=== PATIENT | female | born 1955 | race Caucasian/White ===

== ENCOUNTER 2022-04-20 03:27 | Inpatient (IN) | payer MEDICARE, SELFPAY ==
[2022-04-20] VITALS (24 sets, daily range): BP systolic 122–170; BP diastolic 54–77; PULSE 74–110; RESP 12–20; TEMP 36.4–37.7; O2SAT 96–100; BMI 23.0
--- NOTE | 2022-04-20 | ECG_ITS ---
Test Reason : CHEST PAIN Blood Pressure : / mmHG Vent. Rate : 076 BPM Atrial Rate : 076 BPM P-R Int : 136 ms QRS Dur : 082 ms QT Int : 422 ms P-R-T Axes : 066 023 024 degrees QTc Int : 474 ms Normal sinus rhythm Normal ECG No previous ECGs available Referred By: Generic ED Physician Electronically Signed By:CARLOS YOUNG MD
--- NOTE | ~2022-04-20 | CT_ITS ---
EXAMINATION: CT ABDOMEN AND PELVIS WITH CONTRAST CLINICAL INFORMATION: Question of pancreatitis COMPARISON: None TECHNIQUE: Multidetector volumetric images were obtained from the superior aspect of the liver through the pubic symphysis following administration 85 mL of Omnipaque 350 intravenous contrast. Sagittal and coronal reformatted images were obtained on the technologist's workstation. Oral contrast: No This CT examination was performed using dose optimization techniques as appropriate, variously including the following: *Automated exposure control *Adjustment of mA and/or kV according to patient size (this includes techniques or standardized protocols for targeted exams where dose is matched to indication/reason for exam; i.e. extremities or head) *Use of iterative reconstruction technique DLP: 534 mGy-cm FINDINGS: LUNG BASES: The visualized lung bases are unremarkable. LIVER, GALLBLADDER, AND BILIARY TREE: The liver is normal in size, shape, and attenuation. No focal hepatic lesion or biliary ductal dilatation is present. Gallbladder physiologically contracted. PANCREAS: Unremarkable. SPLEEN: Unremarkable. ADRENAL GLANDS: Unremarkable. KIDNEYS AND URETERS: The kidneys are normal in size, shape, and attenuation. No hydronephrosis, hydroureter, or calculi seen. No perinephric stranding. BLADDER: Unremarkable. GASTROINTESTINAL TRACT: The terminal ileum and cecum have herniated into the lesser sac via the foramen of [place]. The cecum is moderately distended measuring up to 10 cm in diameter. No wall thickening or pericolic fat stranding to suggest vascular compromise. The distal small bowel is fluid filled but nonpathologically distended leading up to the cecum. The ascending colon exits the lesser sac through the foramen of Javier, and the remainder of the colon is relatively decompressed. ABDOMINAL WALL: No significant hernia is appreciated. LYMPH NODES: Normal. VASCULAR: Unremarkable. PELVIC VISCERA: Unremarkable. OSSEOUS STRUCTURES: Unremarkable. CT/CT abdomen pelvis w IV con IMPRESSION: * Internal herniation of the terminal ileum and cecum into the lesser sac via the foramen of [place], ie Blandin's hernia. The cecum is moderately distended measuring up to 10 cm in diameter, however there is no CT imaging evidence of vascular compromise. There is no associated partial obstruction where ascending colon exits the lesser sac, and the remainder of the colon is relatively decompressed. * No evidence of pancreatitis.
[2022-04-20 03:51] LABS: Hematocrit 36.3 % (37.0-47.0); Mean Corpuscular HGB Conc 33.1 g/dl (31.0-35.0); Mean Corpuscular Hemoglobin 30.1 pg (27.0-33.0); Mean Platelet Volume 9.8 fL (9.4-12.3); Platelet Count 247 X10*3/uL (160-400); Red Blood Count 3.99 X10*6/uL (4.20-5.50); Red Cell Distribution Width 12.1 % (11.0-16.0); White Blood Count 12.6 X10*3/uL (4.8-10.8)
--- NOTE | 2022-04-20 03:53 | ED_ITS ---
HPI - Abdominal Pain General Chief Complaint: Abdominal Pain Stated Complaint: Abdominal Pain Time Seen by Provider: 04/20/22 03:52 Source: patient Mode of arrival: ambulatory Limitations: no limitations History of Present Illness HPI narrative: Patient with history of hypertension otherwise healthy drinks occasionally had a drink earlier since 20:00 noticed pain in mid abdomen radiating to the back as with nausea and vomiting multiple times more than 10 also had 3 loose bowels no fever no chills no recent travel or antibiotic use no other family member sick no upper respiratory symptoms no abdominal distension patient never had similar complaints in the past no history of gallstones Related Data Allergies Allergy/AdvReac Type Severity Reaction Status Date / Time No Known Allergies Allergy Verified 04/20/22 03:37 Review of Systems Review of Systems Yes all other systems are reviewed and are negative COUNT INCLUDES [facility] Social History Social History Alcohol intake: current Alcohol intake frequency: a few times a week Alcohol type: hard liquor Smoked in Last 30 Days: No Substance Use Type: Other Substance Use Type Other:: CBD oil Advance Directives: No Advance Directives Information Provided: Yes Physical Exam ED Vital Signs: Vital Signs - 24 hr 04/20/22 03:34 04/20/22 04:31 04/20/22 05:15 Temperature 97.8 F 97.6 F Pulse Rate 74 91 Respiratory Rate 20 20 16 Blood Pressure 168/68 H 164/58 H Pulse Oximetry 98 96 Oxygen Delivery Method Room Air Room Air BMI result Body Mass Index 23.0 Appearance: Alert. Oriented X3. No acute distress. Eyes: No pallor/icterus ENT: Pharynx normal. Oral Mucosa moist Neck: Normal inspection. Neck supple. CVS: Normal heart rate and rhythm. Pulses normal. Respiratory: No respiratory distress. Equal air entry bilateral, no wheezing/rales/rhonchi Abdomen: Soft, deep tenderness in mid abdomen no rebound tenderness , +guarding, Bowel sounds are present, no mass palpable, no CVA tenderness Skin: Skin warm and dry. Normal skin color. Normal skin turgor. Extremities: No lower extremity edema. No calf tenderness Neuro: Oriented X 3. No motor deficit. No sensory deficit.No cerebellar signs , cranial nerves II-XII intact Medical Decision Making Medical Decision Making MDM Narrative: Patient with acute mid abdominal pain with nausea vomiting and diarrhea workup showed WBC count 12.[address] scan of the abdomen showed *? Internal herniation of the terminal ileum and cecum into the lesser sac via the foramen of [place], ie Blandin's hernia. The cecum is moderately distended measuring up to 10 cm in diameter, however there is no CT imaging evidence of vascular compromise. There is no associated partial obstruction where ascending colon exits the lesser sac, and the remainder of the colon is relatively decompressed. *? No evidence of pancreatitis. Case discussed with Dr. Salmeron surgeon will evaluate the patient advise IV fluids and NG tube for now Lab Data MDM Lab Attestation statement: I reviewed the patient's lab results. 04/20/22 03:43 04/20/22 03:43 Labs: Lab Results 04/20/22 04/20/22 04/20/22 Range/Units 03:43 03:43 03:51 WBC 12.6 H (4.8-10.8) X10*3/uL RBC 3.99 L (4.20-5.50) X10*6/uL Hgb 12.0 (12.0-16.0) g/dl Hct 36.3 L (37.0-47.0) % MCV 91.0 (80.0-98.0) fL MCH 30.1 (27.0-33.0) pg MCHC 33.1 (31.0-35.0) g/dl RDW 12.1 (11.0-16.0) % Plt Count 247 (160-400) X10*3/uL MPV 9.8 (9.4-12.3) fL Absolute Nucleated RBC 0.000 (0.0-0.012) X10*3/uL Nucleated RBC % (auto) 0.0 (0.0-0.2) /100WBC Sodium 139 (135-145) mmol/L Potassium 3.7 (3.3-5.1) mmol/L Chloride 103 (96-108) mmol/L Carbon Dioxide 21 L (22-29) mmol/L Anion Gap 19 (12-20) BUN 34 H (9-16) mg/dL Creatinine 1.40 (0.5-1.4) mg/dL Estim Creat Clear Calc 33.1 Estimated GFR 38 Random Glucose 221 H (60-115) mg/dL Calcium 10.3 H (8.4-10.2) mg/dL Total Bilirubin 0.4 (0.0-1.0) mg/dL Direct Bilirubin < 0.2 (0.0-0.5) mg/dL AST 19 (5-31) U/L ALT 17 (0-31) U/L Alkaline Phosphatase 64 (39-117) U/L Troponin I High Sens < 3.5 (<3.5-17.0) ng/L Total Protein 7.5 (6.5-8.0) g/dL Albumin 4.7 (3.5-5.0) g/dL Lipase 197 H (8-78) U/L Urine Color Urine Appearance Urine pH (5.0-9.0) Ur Specific [place] (1.005-1.025) Urine Protein (Neg-Trace) mg/dL Urine Glucose (UA) (Negative) mg/dL Urine Ketones (Negative) mg/dL Urine Blood (Negative) Urine Nitrite (Negative) Ur Leukocyte Esterase (Negative) Urine RBC (0-2) /HPF Urine WBC (0-5) /HPF Ur Squamous Epith Cells (0-2) /HPF Urine Bacteria (None Seen) Hyaline Casts (0-2) /LPF 04/20/22 Range/Units 04:32 WBC (4.8-10.8) X10*3/uL RBC (4.20-5.50) X10*6/uL Hgb (12.0-16.0) g/dl Hct (37.0-47.0) % MCV (80.0-98.0) fL MCH (27.0-33.0) pg MCHC (31.0-35.0) g/dl RDW (11.0-16.0) % Plt Count (160-400) X10*3/uL MPV (9.4-12.3) fL Absolute Nucleated RBC (0.0-0.012) X10*3/uL Nucleated RBC % (auto) (0.0-0.2) /100WBC Sodium (135-145) mmol/L Potassium (3.3-5.1) mmol/L Chloride (96-108) mmol/L Carbon Dioxide (22-29) mmol/L Anion Gap (12-20) BUN (9-16) mg/dL Creatinine (0.5-1.4) mg/dL Estim Creat Clear Calc Estimated GFR Random Glucose (60-115) mg/dL Calcium (8.4-10.2) mg/dL Total Bilirubin (0.0-1.0) mg/dL Direct Bilirubin (0.0-0.5) mg/dL AST (5-31) U/L ALT (0-31) U/L Alkaline Phosphatase (39-117) U/L Troponin I High Sens (<3.5-17.0) ng/L Total Protein (6.5-8.0) g/dL Albumin (3.5-5.0) g/dL Lipase (8-78) U/L Urine Color Dark Yellow Urine Appearance Clear Urine pH 6.0 (5.0-9.0) Ur Specific [place] 1.020 (1.005-1.025) Urine Protein 100 (2+) H (Neg-Trace) mg/dL Urine Glucose (UA) 250 H (Negative) mg/dL Urine Ketones Trace (Negative) mg/dL Urine Blood Negative (Negative) Urine Nitrite Negative (Negative) Ur Leukocyte Esterase Negative (Negative) Urine RBC 3-5 H (0-2) /HPF Urine WBC 0-5 (0-5) /HPF Ur Squamous Epith Cells 0-2 (0-2) /HPF Urine Bacteria None Seen (None Seen) Hyaline Casts 0-2 (0-2) /LPF Independent Interpretation I performed an independent interpretation of an: EKG Interpretation: Normal sinus rhythm heart rate 76 beats per minute normal interval normal axis impression normal EKG Radiology Impression Discussion of test interpretation with radiology: I have reviewed the radiologist's reading. Radiologist Impression: CT/CT abdomen pelvis w IV con IMPRESSION: *? Internal herniation of the terminal ileum and cecum into the lesser sac via the foramen of [place], ie Blandin's hernia. The cecum is moderately distended measuring up to 10 cm in diameter, however there is no CT imaging evidence of vascular compromise. There is no associated partial obstruction where ascending colon exits the lesser sac, and the remainder of the colon is relatively decompressed. *? No evidence of pancreatitis. Medications Administered Discontinued Medications Generic Name Dose Route Start Last Admin Trade Name Freq PRN Reason Stop Dose Admin Sodium Chloride 1,000 mls @ 999 mls/hr 04/20/22 04:18 04/20/22 04:36 Ns IV 04/20/22 05:18 999 mls/hr .Q1H1M ONE Administration Iohexol 85 ml 04/20/22 05:01 04/20/22 05:02 Iohexol 350 Mg/Ml 100 Ml Infus..Btl IV 04/20/22 05:02 85 ml ONCE ONE Administration Morphine Sulfate 4 mg 04/20/22 04:18 04/20/22 04:31 Morphine Sulfate 4 Mg/Ml Cartridge IVPUSH 04/20/22 04:19 4 mg ONCE ONE Administration Protocol Ondansetron HCl 4 mg 04/20/22 04:18 04/20/22 04:31 Ondansetron Hcl 4 Mg/2 Ml Vial IVPUSH 04/20/22 04:19 4 mg ONCE ONE Administration Discharge Plan Discharge Clinical Impression: Internal hernia Patient Disposition: Admitted As Inpatient
--- NOTE | 2022-04-20 03:58 | PC.NURSE ---
Addendum entered by Stella Garcia 04/20/22 06:13: PT lying on stretcher quietly, reports effectiveness to pain meds given. States pain decrease from 8/10 to 4/10. No apparent distress. Addendum entered by Stella Garcia 04/20/22 04:37: Medications given as ordered. Addendum entered by Stella Garcia 04/20/22 04:04: PT reports episodes of V/D. Original Note: PT A&Ox4, reports 10/10 all over ABD pain that started around 8pm last night 45 minutes after eating. Reports chest pain that radiates to upper back. PT placed on the monitor, EKG done, HR 76 NSR. IV established and blood work drawn and sent to lab.
[2022-04-20 04:07] LABS: Alanine Aminotransferase 17 U/L (0-31); Albumin Level 4.7 g/dL (3.5-5.0); Alkaline Phosphatase 64 U/L (39-117); Anion Gap 19 (12-20); Aspartate Amino Transferase 19 U/L (5-31); Bilirubin Direct < 0.2 mg/dL (0.0-0.5); Bilirubin Total 0.4 mg/dL (0.0-1.0); Blood Urea Nitrogen 34 mg/dL (9-16); Calcium 10.3 mg/dL (8.4-10.2); Carbon Dioxide 21 mmol/L (22-29); Chloride 103 mmol/L (96-108); Creatinine Clr Calc Pharmacy 33.1; Estimated Glomerular Filt Rate 38; Glucose Random 221 mg/dL (60-115); Lipase 197 U/L (8-78); Potassium 3.7 mmol/L (3.3-5.1); Sodium 139 mmol/L (135-145); Total Protein 7.5 g/dL (6.5-8.0)
[2022-04-20 04:18] LABS: Troponin-I High Sensitivity < 3.5 ng/L (<3.5-17.0)
[2022-04-20] MEDS: Morphine Sulfate 4 MG/ML CARTRIDGE IVPUSH (04:31)
[2022-04-20] MEDS: ondansetron HCL 4 MG/2 ML VIAL IVPUSH (04:31)
[2022-04-20] MEDS: 0.9 % Sodium Chloride 1,000 ML 999 ML IV ×2 (04:36→06:59)
[2022-04-20 04:39] LABS: Appearance Urine Clear; Color Urine Dark Yellow; Glucose Urine UA 250 mg/dL (Negative); Leukocyte Esterase Urine Negative (Negative); Nitrite Urine Negative (Negative); UMIC TRIGGER UACC YES; Urine Blood Negative (Negative); Urine Ketones Trace mg/dL (Negative); Urine Protein 100 (2+) mg/dL (Neg-Trace)
[2022-04-20 04:43] LABS: Bacteria Urine None Seen (None Seen); Hyaline Casts Urine 0-2 /LPF (0-2); Squamous Epithelial Cell Urine 0-2 /HPF (0-2); WBC Urine 0-5 /HPF (0-5)
[2022-04-20] MEDS: iohexoL 350 MG/ML 100 ML INFUS..BTL 85 ML IV (05:02)
--- NOTE | 2022-04-20 07:17 | PC.NURSE ---
surgeon at bedside-Call made to pharmacy for lidocaine
--- NOTE | 2022-04-20 07:40 | PM.HPGS ---
History of Present Illness History of Present Illness Date of Service: 04/20/22 Chief complaint: Abdominal Pain Narrative: Saud Fortune is a 66 year old female who has a history of controlled hypertension and is rather athletic. She is accompanied by her , [place], who is at the bedside. She reports she does about 200 crunches a day and exercises with a administrative personal assistant daily. She had been doing well until last night when she started to developed crampy abdominal pain that was ill-defined and when it continued to progress and radiate to her back and shoulders, she came to the emergency department where she was noted to have a mild leukocytosis and a CT scan consistent with an internal hernia through the foramen of [place]avier with her cecum and the retrogastric location. Patient reports a prior history of of ectopic and C-sections but has no upper abdominal surgery. She notes that she had a colonoscopy completed up previously but that her 1st colonoscopy was very uncomfortable. Review of Systems Review of Systems: Yes all other systems are reviewed and are negative Constitutional: Constitutional: Reports as per [facility] Social History Social History Alcohol intake: current Alcohol intake frequency: a few times a week Alcohol type: hard liquor Smoked in Last 30 Days: No Substance Use Type: Other Substance Use Type Other:: CBD oil Advance Directives: No Advance Directives Information Provided: Yes Meds Allergies Allergy/AdvReac Type Severity Reaction Status Date / Time No Known Allergies Allergy Verified 04/20/22 03:37 Active Medications: Current Medications Sodium Chloride (Ns) 1,000 mls @ 999 mls/hr IV .Q1H1M ONE Stop: 04/20/22 07:43 Last Admin: 04/20/22 06:59 Dose: 999 mls/hr Physical Exam Vital Signs: Vital Signs: Last Vital Signs Temp 97.6 F 04/20/22 05:15 Pulse 91 04/20/22 05:15 Resp 16 04/20/22 05:15 BP 164/58 H 04/20/22 05:15 Pulse Ox 96 04/20/22 05:15 O2 Del Method 04/20/22 05:15 BMI result Body Mass Index 23.0 The patient is non-toxic, but uncomfortable & in surprisingly good spirits NC/AT, PERRLA, EOMI Mood, affect & judgment all appear appropriate Sclera anicteric conjunctiva pink and moist Oropharynx is clear with no aphthous ulcers, Mallampati class 2, mucous membranes moist Neck is supple with no masses, adenopathy or bruits Heart is regular, normal S1-S2 no rubs or murmurs Lungs are clear and equal anteriorly with no audible wheezing, rubs or dullness to percussion Abdomen has no demonstrable hernias. No HSM, rebound, rigidity, guarding, masses or bruits are present. Rectal exam is deferred Skin has good turgor and is free of rashes Extremities free of cyanosis clubbing edema Results Results Labs: Short CBC 04/20/22 Range/Units 03:43 WBC 12.6 H (4.8-10.8) X10*3/uL Hgb 12.0 (12.0-16.0) g/dl Hct 36.3 L (37.0-47.0) % Plt Count 247 (160-400) X10*3/uL BMP 04/20/22 03:43 Sodium 139 Potassium 3.7 Chloride 103 Carbon Dioxide 21 L BUN 34 H Creatinine 1.40 Calcium 10.3 H Liver Function 04/20/22 Range/Units 03:43 Total Bilirubin 0.4 (0.0-1.0) mg/dL Direct Bilirubin < 0.2 (0.0-0.5) mg/dL AST 19 (5-31) U/L ALT 17 (0-31) U/L Alkaline Phosphatase 64 (39-117) U/L Albumin 4.7 (3.5-5.0) g/dL Urine 04/20/22 Range/Units 04:32 Urine Color Dark Yellow Urine Appearance Clear Urine pH 6.0 (5.0-9.0) Ur Specific [place] 1.020 (1.005-1.025) Urine Protein 100 (2+) H (Neg-Trace) mg/dL Urine Glucose (UA) 250 H (Negative) mg/dL Abdomen CT scan report/results: report reviewed CT scan - pelvis: report reviewed and image reviewed Assessment and Plan (1) Internal hernia: Status: Acute (2) HTN (hypertension): Status: Acute Plan I explained to the patient and her this is an exceedingly rare internal hernia and that I would recommend a diagnostic laparoscopy, possible laparotomy and a possible bowel resection that would be determined intraoperatively. The only other options would be to transfer the patient to a larger institution. I reviewed the inherent risks of this plan which include, but are not limited to: Bleeding, infection, incisional hernia, the possible need for open surgery, the possible need for a bowel resection and possible anastomotic complications that could require another operation or even an ostomy. The patient and her seemed understand the options, risks and benefits and wanted to proceed. Patient will proceed to the operating room immediately. Hold on nasogastric tube for now, will place at intraoperatively. Keep the patient NPO, she will receive Ancef, 2 g IV and sequential compression stockings will be in place. Baumann catheter. Will proceed as soon as the operating team is ready.. I met with the patient's and her. Her and stefano provided his cell phone number [phone] Time Spent With Patient Time: Total time managing care of this patient today ____ minutes. Quality Stroke Does the patient have a stroke diagnosis?: No VTE Prior VTE?: No VTE Risk Level:: Surgical - moderate VTE Device Contraindication: N/A - Device Ordered VTE Drug Contraindication: Treatment Not Indicated Procedures Date of Service Date of Service: 04/20/22
--- NOTE | 2022-04-20 07:54 | HO.ANESPROP2 ---
HPI - Anesthesia Eval Consult details Narrative: 66 yo female patient with Foramen of [place] hernia. For diagnostic laparoscopy, possible laparotomy, possible bowel resection PMFSH Active Problems Active Problems: All Active Problems (Updated 04/20/22 @ 07:44 by Arturo Salmeron MD) HTN (hypertension) (Acute) Internal hernia (Acute) Social History Social History Alcohol intake: current Alcohol intake frequency: a few times a week Alcohol type: hard liquor Smoked in Last 30 Days: No Substance Use Type: Other Substance Use Type Other:: CBD oil Advance Directives: No Advance Directives Information Provided: Yes Meds Allergies Allergy/AdvReac Type Severity Reaction Status Date / Time No Known Allergies Allergy Verified 04/20/22 03:37 Active Medications: Current Medications Cefazolin Sodium/Dextrose (Ancef) 2 gm in 50 mls @ 100 mls/hr IV ONCE ONE Stop: 04/20/22 08:07 Lactated Ringer's (Lr) 1,000 mls @ 100 mls/hr IVCONT .Q10H EMMANUEL Home Medications Medication Instructions Recorded Confirmed Last Taken Type cholecalciferol (vitamin D3) 25 25 mcg PO DAILY 04/20/22 04/20/22 04/19/22 History mcg (1,000 unit) tablet (Vitamin D3) estradiol 1 mg tablet 1 tab PO DAILY 04/20/22 04/20/22 04/19/22 History fish, borage, flaxseed oils-omega 1 cap PO BID 04/20/22 04/20/22 04/19/22 History 3,6,9 cb #1 400 mg-400 mg-400 mg cap ([place]ple [place] 3-6-9) glucosamine 750 nx-[id number]-etx 1 tab PO BID 04/20/22 04/20/22 04/19/22 History no1 644 mg-C 30 mg-viky 1 mg tablet (Osteo Bi-Flex Triple Strength) magnesium oxide 250 mg PO BID 04/20/22 04/20/22 04/19/22 History methenamine-sodium salicylate 162 2 tab PO DAILY 04/20/22 04/20/22 Unknown History mg-162.5 mg tablet (AZO Urinary Tract Defense) [id number] 1 tab PO DAILY 04/20/22 04/20/22 Unknown History tablet (Multivitamin 50 Plus tablet) olmesartan 20 1 tab PO DAILY 04/20/22 04/20/22 04/19/22 History mg-hydrochlorothiazide 12.5 mg tablet potassium gluconate 550 mg (90 mg) 550 mg PO DAILY 04/20/22 04/20/22 04/19/22 History tablet turmeric root extract 500 mg 1,000 mg PO DAILY 04/20/22 04/20/22 04/19/22 History capsule vitamin B complex 1 cap PO DAILY 04/20/22 04/20/22 04/19/22 History Exam Exam Date and Time: April 20, 2022 0754 Height,Weight and Vital Signs: Height 5 ft 3 in Weight 58.967 kg Last Vital Signs Temp 98.7 F 04/20/22 07:50 Pulse 110 H 04/20/22 07:50 Resp 18 04/20/22 07:50 BP 170/77 H 04/20/22 07:50 Pulse Ox 97 04/20/22 07:50 O2 Del Method 04/20/22 07:50 Pertinent Lab Results Pertinent Lab Results: Laboratory Tests 04/20/22 04/20/22 04/20/22 03:43 03:43 03:51 WBC 12.6 H RBC 3.99 L Hgb 12.0 Hct 36.3 L MCV 91.0 MCH 30.1 MCHC 33.1 RDW 12.1 Plt Count 247 MPV 9.8 Absolute Nucleated RBC 0.000 Nucleated RBC % (auto) 0.0 Sodium 139 Potassium 3.7 Chloride 103 Carbon Dioxide 21 L Anion Gap 19 BUN 34 H Creatinine 1.40 Estim Creat Clear Calc 33.1 Estimated GFR 38 Random Glucose 221 H Calcium 10.3 H Total Bilirubin 0.4 Direct Bilirubin < 0.2 AST 19 ALT 17 Alkaline Phosphatase 64 Troponin I High Sens < 3.5 Total Protein 7.5 Albumin 4.7 Lipase 197 H Urine Color Urine Appearance Urine pH Ur Specific [place] Urine Protein Urine Glucose (UA) Urine Ketones Urine Blood Urine Nitrite Ur Leukocyte Esterase Urine RBC Urine WBC Ur Squamous Epith Cells Urine Bacteria Hyaline Casts 04/20/22 04:32 WBC RBC Hgb Hct MCV MCH MCHC RDW Plt Count MPV Absolute Nucleated RBC Nucleated RBC % (auto) Sodium Potassium Chloride Carbon Dioxide Anion Gap BUN Creatinine Estim Creat Clear Calc Estimated GFR Random Glucose Calcium Total Bilirubin Direct Bilirubin AST ALT Alkaline Phosphatase Troponin I High Sens Total Protein Albumin Lipase Urine Color Dark Yellow Urine Appearance Clear Urine pH 6.0 Ur Specific [place] 1.020 Urine Protein 100 (2+) H Urine Glucose (UA) 250 H Urine Ketones Trace Urine Blood Negative Urine Nitrite Negative Ur Leukocyte Esterase Negative Urine RBC 3-5 H Urine WBC 0-5 Ur Squamous Epith Cells 0-2 Urine Bacteria None Seen Hyaline Casts 0-2
[2022-04-20] MEDS: Lactated Ringers 1,000 ML 100 ML IVCONT ×2 (07:56→16:36)
[2022-04-20] MEDS: ceFAZolin Sodium/Dextrose,Iso 2 GM/50 ML PIGGYBACK IV ×2 (07:59→16:37)
[2022-04-20 08:00] LABS: Lactic Acid 2.2 mmol/L (0.5-2.0)
[2022-04-20 08:06] LABS: COVID-19 Test Negative (Negative); IDNOW Serial# BCCEAD1C
--- NOTE | 2022-04-20 08:12 | HE.PHANOTE ---
med rec complete, spoke to pt and
--- NOTE | 2022-04-20 08:19 | PC.NURSE ---
Pt to OR
[2022-04-20 09:45] LABS: Reflex Lactate? Lactic Acid Added
--- NOTE | 2022-04-20 12:18 | P.OP_ITS ---
Operative Note Operative Note Date of Service: 04/20/22 Narrative: Preop diagnosis: [Internal hernia via foramen of Javier] Postop diagnosis: [Same, incarcerated with hemorrhagic cecum] Procedure: [Diagnostic laparoscopy with lysis of adhesions for 37 minute; conversion to laparotomy for ileocecal ectomy secondary to incarcerated hernia with possibly ischemic appearing bowel via foramen of Javier] Surgeon: Arturo Salmeron MD Assist: [Keyon Galo PA-C] Anesthesia: [General endotracheal; local is ropivacaine, 0.5% plain] Estimated blood loss: [100cc] Specimen: [Ileocecectomy] Intraoperative findings: [1. Incarcerated, hemorrhagic cecum via foramen of [place] that initially appeared reducible laparoscopically following needle decompression; 2) adhesions of omentum and ascending colon distorting anatomy that required lysis in order to assess reduce ability of the hernia laparoscopically ] Indications: [The patient is a 66-year-old woman with a history of hypertension who reported roughly 24 hours of progressively worsening pain, had a mild lactic acidosis, leukocytosis and a CT demonstrating that her cecum was in the left upper quadrant behind the stomach and under the liver consistent with a an internal hernia via the foramen of [place]. Immediate operative intervention was recommended with the patient and her in the the planned for a laparoscopic reduction or possible open operation with possible bowel resection was reviewed as well as the inherent risks of bleeding, infection, need for open surgery, anastomotic complications that could require reoperation, the possible need for a blood transfusion and the possibility of prolonged hospitalization in the event of unusual complications given the unusual rarity of this hernia were reviewed. The option of a 2nd opinion or transferred was reviewed but declined by the patient. She seemed understand her options and wanted to proceed.] Procedure: [The patient was identified in the preoperative holding area and again an operating suite 7. She was placed on the table supine, footboard was utilized, she was induced in general endotracheal anesthesia administered with excellent effect. She received Ancef, 2 g IV on-call, Baumann catheter was placed, sequential compression stockings were in place. After an appropriate time-out, her abdomen was widely prepped and draped in the usual manner using chlorprep. Preemptive local was used at all trocar insertion sites. I began at the supraumbilical midline and due to some difficulty placing the Veress needle and high opening pressures, converted to a Solis technique by grasping the fascia in the midline with Estephania clamps, placing sutures on either side of midline an opening the fascia. A gloved finger was inserted and then a Solis trocar inserted a pneumoperitoneum of 15 mmHg was obtained using carbon dioxide in the abdomen explored with a 5 mm 30 degree scope. There was an obvious large portion of colon and the left upper quadrant and in examining for evidence of injury from the Veress needle, none was noted. Additional 5 mm trocars were placed on the patient's left and right abdomen for a total of 3. Patient was then positioned in reverse Trendelenburg and LigaSure and graspers used to identify the anatomy there was a significant amount of adhesions from the omentum in the patient's incompletely rotated: That needed to be lysed to demonstrate the hernia of the ascending colon and cecum through the for a min of 1 slow and this lysis of adhesions required 37 minutes. After attempting to reduce the cecum and successfully, needle decompression was performed and the site closed with a 2-0 Polysorb suture. When this was unsuccessful, decision to open was made. Trocars were removed and protocol to convert to open performed by the staff; the abdomen is entered through a midline upper abdominal incision using electrocautery for hemostasis. Even with manual manipulation, the cecum remained incarcerated and I elected to perform an ileocecectomy in Situ since incarceration would not allow reduction. Window was made through the terminal ileum mesentery and a JIGNESH 60 blue load used to divide the terminal ileum. Next, the ascending colon was divided and ileocecal ectomy was completed by dividing the blood supply using a LigaSure or. Once the incarcerated and likely ischemic cecum was removed, the small bowel and colon was reduced. The ileocecum was sent for permanent section. After inspecting the field for hemostasis, a functional end-to-end ileo ascending colostomy was performed using a JIGNESH 60 blue load and TA 60 blue load stapler. The 1st anastomosis looked tenuous, so this area was resected and another functional anastomosis performed which had better viability. The the mesentery defect was then closed with 3-0 Polysorb and a crotch suture of 3-0 Polysorb placed to keep tension off the staple line. The staple line was patent, hemostatic and viable. Next, the abdomen was irrigated copiously with sterile saline, the anastomosis returned to the abdomen and the area inspected. There was a small rent on the liver from retraction that was rendered hemostatic with electrocautery. After confirming no sponges and instruments were in the abdomen, the abdomen was closed by closing the posterior sheath and peritoneum with a running 2 0 Polysorb and the anterior fascia closed with interrupted 0 Maxon sutures. There was then washed and dried, local infiltrated in the incision and the skin closed with skin mario including the trocar sites. Patient tolerated the procedure well was sent extubated the recovery in stable condition. All sponge instrument counts were correct At the patient's request I contacted her [place] at [phone] and apprised him of the operation and need to convert to an open procedure due to the it incarcerated and irreducible bowel. His questions seemed to be satisfactorily answered. Routine postoperative plan was reviewed.]
--- NOTE | 2022-04-20 14:22 | PM.EVENT ---
Event Note Date of Service: 04/20/22 Event Note: The patient is seen in PACU. Her pulse is still in the upper 90s but she reports that she no longer has the excruciating pain that she came to the emergency room experiencing. She otherwise denies chest pain, shortness of breath. I reviewed the intraoperative findings and need to convert to an open procedure. I explained about the ileocecal ectomy and typical postoperative course. Will reassess later. Check stat lactic acid ordered at 13:30 Time Spent With Patient Time: Total time managing care of this patient today ____ minutes.
--- NOTE | 2022-04-20 16:01 | PM.PNGS ---
Subjective Subjective Date of Service: 04/20/22 Patient reports: feels better Interval history: Patient seen in PACU before going up to room 378. She continues to deny any chest pain or difficulty breathing but notes improvement in her presenting pain. I reviewed the operation and need to convert to an open operation as well as removed a portion of her ileum and colon. Physical Exam Vital Signs: Vital Signs: Last Vital Signs Temp 97.7 F 04/20/22 13:30 Pulse 95 04/20/22 15:45 Resp 18 04/20/22 15:45 BP 149/64 H 04/20/22 15:45 Pulse Ox 98 04/20/22 15:45 O2 Del Method 04/20/22 15:45 O2 Flow Rate 2 04/20/22 14:00 BMI result Body Mass Index 23.0 Pulse remains in the 90s Patient has no respiratory distress Objective Data Active Medications Fentanyl (Fentanyl Citrate/Pf 100 Mcg/2 Ml Vial) 25 mcg IVPUSH Q5M PRN; Protocol PRN Reason: Pain, Moderate (Pain Scale 4-6 Hydromorphone HCl (Hydromorphone Hcl 0.5 Mg/0.5 Ml Syringe) 0.25 mg IVPUSH Q5M PRN; Protocol PRN Reason: Pain, Severe (Pain Scale 7-10) Hydromorphone HCl (Hydromorphone Hcl 0.5 Mg/0.5 Ml Syringe) 0.25 mg IVPUSH Q2H PRN; Protocol PRN Reason: Pain, Moderate (Pain Scale 4-6 Lactated Ringer's (Lr) 1,000 mls @ 150 mls/hr IVCONT .Q6H40M EMMANUEL Last Admin: 04/20/22 07:56 Dose: 100 mls/hr Documented By: DEA Lactated Ringer's (Lr) 1,000 mls @ 100 mls/hr IVCONT .Q10H EMMANUEL Promethazine HCl 12.5 mg/ (Sodium Chloride) 50.5 mls @ 202 mls/hr IV ONCE PRN PRN Reason: Nausea and Vomiting Lactated Ringer's (Lr) 1,000 mls @ 100 mls/hr IVCONT .Q10H EMMANUEL Acetaminophen (Ofirmev) 1,000 mg in 100 mls @ 400 mls/hr IV Q6H [facility] Stop: 04/21/22 07:14 Ondansetron HCl (Ondansetron Hcl 4 Mg/2 Ml Vial) 4 mg IVPUSH ONCE PRN PRN Reason: Nausea and Vomiting Ondansetron HCl (Ondansetron Hcl 4 Mg/2 Ml Vial) 4 mg IVPUSH Q6H PRN PRN Reason: Nausea and Vomiting Pantoprazole Sodium (Pantoprazole Sodium 40 Mg/10 Ml Vial) 40 mg IVPUSH DAILY@0630 [facility] Sodium Chloride (0.9 % Sodium Chloride Flush 3 Ml Syringe) 3 ml IVFLUSH QSHIFT [facility] Labs 04/20/22 03:43 04/20/22 03:43 Labs: Laboratory Results - last 24 hr 04/20/22 04/20/22 04/20/22 03:43 03:43 03:51 MCV 91.0 MCH 30.1 MCHC 33.1 RDW 12.1 Plt Count 247 MPV 9.8 Absolute Nucleated RBC 0.000 Nucleated RBC % (auto) 0.0 Anion Gap 19 Estim Creat Clear Calc 33.1 Estimated GFR 38 Random Glucose 221 H Lactic Acid Calcium 10.3 H Total Bilirubin 0.4 Direct Bilirubin < 0.2 AST 19 ALT 17 Alkaline Phosphatase 64 Troponin I High Sens < 3.5 Total Protein 7.5 Albumin 4.7 Lipase 197 H Urine Color Urine Appearance Urine pH Ur Specific [place] Urine Protein Urine Glucose (UA) Urine Ketones Urine Blood Urine Nitrite Ur Leukocyte Esterase Urine RBC Urine WBC Ur Squamous Epith Cells Urine Bacteria Hyaline Casts COVID-19 (MARY) COVID-19 Clin Com 04/20/22 04/20/22 04/20/22 04:32 07:27 07:37 MCV MCH MCHC RDW Plt Count MPV Absolute Nucleated RBC Nucleated RBC % (auto) Anion Gap Estim Creat Clear Calc Estimated GFR Random Glucose Lactic Acid 2.2 H* Calcium Total Bilirubin Direct Bilirubin AST ALT Alkaline Phosphatase Troponin I High Sens Total Protein Albumin Lipase Urine Color Dark Yellow Urine Appearance Clear Urine pH 6.0 Ur Specific [place] 1.020 Urine Protein 100 (2+) H Urine Glucose (UA) 250 H Urine Ketones Trace Urine Blood Negative Urine Nitrite Negative Ur Leukocyte Esterase Negative Urine RBC 3-5 H Urine WBC 0-5 Ur Squamous Epith Cells 0-2 Urine Bacteria None Seen Hyaline Casts 0-2 COVID-19 (MARY) Negative COVID-19 Clin Com See Note 04/20/22 14:25 MCV MCH MCHC RDW Plt Count MPV Absolute Nucleated RBC Nucleated RBC % (auto) Anion Gap Estim Creat Clear Calc Estimated GFR Random Glucose Lactic Acid 2.0 Calcium Total Bilirubin Direct Bilirubin AST ALT Alkaline Phosphatase Troponin I High Sens Total Protein Albumin Lipase Urine Color Urine Appearance Urine pH Ur Specific [place] Urine Protein Urine Glucose (UA) Urine Ketones Urine Blood Urine Nitrite Ur Leukocyte Esterase Urine RBC Urine WBC Ur Squamous Epith Cells Urine Bacteria Hyaline Casts COVID-19 (MARY) COVID-19 Clin Com repeat lactic acid was down to 2.0 Procedures Date of Service Date of Service: 04/20/22 Progress Note: A&P Assessment and plan (1) Internal hernia: Status: Acute (2) HTN (hypertension): Status: Acute (3) S/P partial colectomy: Status: Acute Plan Typical postoperative course was reviewed with the patient and her questions answered Continue bowel rest. Okay for ice chips for comfort and Chloraseptic spray. Trend labs and continue IV fluid. Time Spent With Patient Time: Total time managing care of this patient today ____ minutes. Quality Stroke Does the patient have a stroke diagnosis?: No VTE Prior VTE?: No VTE Risk Level:: Surgical - moderate VTE Device Contraindication: N/A - Device Ordered VTE Drug Contraindication: Treatment Not Indicated
[2022-04-20] MEDS: 0.9 % Sodium Chloride Flush 3 ML SYRINGE IVFLUSH (16:37)
[2022-04-20] MEDS: Throat Lozenge, Medicated LOZENGE 1 LOZENGE MUCOUS MEM (17:20)
[2022-04-20] MEDS: Lactated Ringers 1,000 ML 150 ML IVCONT (23:36)
[2022-04-21] VITALS (8 sets, daily range): BP systolic 131–179; BP diastolic 62–91; PULSE 94–100; RESP 16–18; TEMP 36.8–37.6; O2SAT 95–97
[2022-04-21] MEDS: Acetaminophen 1,000 MG/100 ML PIGGYBACK 400 MG IV ×3 (00:32→13:00)
[2022-04-21] MEDS: HYDROmorphone HCl 0.5 MG/0.5 ML SYRINGE 0.25 MG IVPUSH ×3 (05:04→20:12)
[2022-04-21] MEDS: Pantoprazole Sodium 40 MG/10 ML VIAL IVPUSH (05:42)
[2022-04-21] MEDS: Lactated Ringers 1,000 ML 150 ML IVCONT (06:28)
[2022-04-21 06:40] LABS: MANUAL DIFF FLAG NO
[2022-04-21 06:57] LABS: Basophils Absolute Auto 0.1 X10*3/uL (0.0-0.2); Basophils Percent Auto 0.8 % (0-2); Eosinophils Percent Auto 0.3 % (0-4); Hematocrit 29.6 % (37.0-47.0); Hemoglobin 9.8 g/dl (12.0-16.0); Imm Gran Abs Auto 0.01 X10*3/uL (0.00-0.03); Imm Gran Pct Auto 0.1 % (0.0-0.4); Lymphocytes Absolute Auto 1.5 X10*3/uL (1.2-4.9); Lymphocytes Percent Auto 19.9 % (20-40); Mean Corpuscular HGB Conc 33.1 g/dl (31.0-35.0); Mean Corpuscular Hemoglobin 30.6 pg (27.0-33.0); Mean Corpuscular Volume 92.5 fL (80.0-98.0); Mean Platelet Volume 10.8 fL (9.4-12.3); Monocytes Absolute Auto 0.4 X10*3/uL (0.1-1.2); Monocytes Percent Auto 5.3 % (2-11); Neutrophils Absolute Auto 5.4 x10*3/uL (2.0-8.3); Neutrophils Percent Auto 73.6 % (45-73); Platelet Count 184 X10*3/uL (160-400); Red Cell Distribution Width 12.8 % (11.0-16.0); White Blood Count 7.3 X10*3/uL (4.8-10.8)
[2022-04-21 07:42] LABS: Alanine Aminotransferase 88 U/L (0-31); Albumin Level 3.1 g/dL (3.5-5.0); Alkaline Phosphatase 42 U/L (39-117); Anion Gap 14 (12-20); Aspartate Amino Transferase 93 U/L (5-31); Bilirubin Total 0.7 mg/dL (0.0-1.0); Blood Urea Nitrogen 22 mg/dL (9-16); Carbon Dioxide 23 mmol/L (22-29); Chloride 109 mmol/L (96-108); Creatinine Clr Calc Pharmacy 44.1; Estimated Glomerular Filt Rate 53; Glucose Random 105 mg/dL (60-115); Lipase 14 U/L (8-78); Potassium 3.8 mmol/L (3.3-5.1); Sodium 142 mmol/L (135-145)
[2022-04-21 07:53] LABS: Calcium 7.8 mg/dL (8.4-10.2)
[2022-04-21] MEDS: 0.9 % Sodium Chloride Flush 3 ML SYRINGE IVFLUSH ×2 (08:02→15:51)
--- NOTE | 2022-04-21 09:01 | PM.PNGS ---
Subjective Subjective Date of Service: 04/21/22 Patient reports: feels better, still having pain and flatus Interval history: The patient had been trying to avoid narcotics due to concerns about the effect on causing nausea or ileus and the patient states she has been passing gas since after surgery. However, she just got Dilaudid around 05:00 o'clock and was sleeping when I saw her. She continues to report interval improvement since surgery and otherwise denies chest pain, difficulty breathing or shortness of breath. Physical Exam Vital Signs: Vital Signs: Last Vital Signs Temp 99.7 F 04/21/22 08:00 Pulse 96 04/21/22 08:00 Resp 17 04/21/22 08:00 BP 135/91 H 04/21/22 08:00 Pulse Ox 96 04/21/22 08:00 O2 Del Method 04/21/22 08:00 O2 Flow Rate 2 04/20/22 14:00 BMI result Body Mass Index 23.0 On exam she is nontoxic Sclera anicteric She is in no respiratory distress Dressings are clean dry and intact NG aspirate is green bilious, non stagnant Baumann is light yellow urine Objective Data Active Medications Benzocaine (Throat Lozenge, Medicated Lozenge) 1 lozenge MUCOUS MEM Q2H PRN PRN Reason: Sore Throat Last Admin: 04/20/22 17:20 Dose: 1 lozenge Documented By: COTEMA Fentanyl (Fentanyl Citrate/Pf 100 Mcg/2 Ml Vial) 25 mcg IVPUSH Q5M PRN; Protocol PRN Reason: Pain, Moderate (Pain Scale 4-6 Hydromorphone HCl (Hydromorphone Hcl 0.5 Mg/0.5 Ml Syringe) 0.25 mg IVPUSH Q5M PRN; Protocol PRN Reason: Pain, Severe (Pain Scale 7-10) Hydromorphone HCl (Hydromorphone Hcl 0.5 Mg/0.5 Ml Syringe) 0.25 mg IVPUSH Q2H PRN; Protocol PRN Reason: Pain, Moderate (Pain Scale 4-6 Last Admin: 04/21/22 05:04 Dose: 0.25 mg Documented By: ODESSA Lactated Ringer's (Lr) 1,000 mls @ 100 mls/hr IVCONT .Q10H [facility] Last Admin: 04/21/22 06:28 Dose: 150 mls/hr Documented By: ODESSA Promethazine HCl 12.5 mg/ (Sodium Chloride) 50.5 mls @ 202 mls/hr IV ONCE PRN PRN Reason: Nausea and Vomiting Acetaminophen (Ofirmev) 1,000 mg in 100 mls @ 400 mls/hr IV Q6H [facility] Stop: 04/21/22 12:44 Last Infusion: 04/21/22 06:50 Dose: 0 mls/hr Documented By: ODESSA Non-Formulary Medication (Olmesartan-Hydrochlorothiazide) 1 tab PO DAILY [facility] Ondansetron HCl (Ondansetron Hcl 4 Mg/2 Ml Vial) 4 mg IVPUSH ONCE PRN PRN Reason: Nausea and Vomiting Ondansetron HCl (Ondansetron Hcl 4 Mg/2 Ml Vial) 4 mg IVPUSH Q6H PRN PRN Reason: Nausea and Vomiting Pantoprazole Sodium (Pantoprazole Sodium 40 Mg/10 Ml Vial) 40 mg IVPUSH DAILY@0630 [facility] Last Admin: 04/21/22 05:42 Dose: 40 mg Documented By: ODESSA Sodium Chloride (0.9 % Sodium Chloride Flush 3 Ml Syringe) 3 ml IVFLUSH QSHIFT [facility] Last Admin: 04/21/22 08:02 Dose: 3 ml Documented By: GIULIANA Labs 04/21/22 05:35 04/21/22 05:35 Labs: Laboratory Results - last 24 hr 04/20/22 04/21/22 04/21/22 14:25 05:35 05:35 MCV 92.5 MCH 30.6 MCHC 33.1 RDW 12.8 Plt Count 184 D MPV 10.8 Immature Gran % (Auto) 0.1 Neut % (Auto) 73.6 H Lymph % (Auto) 19.9 L [place] % (Auto) 5.3 Eos % (Auto) 0.3 Baso % (Auto) 0.8 Lymph # (Auto) 1.5 [place] # (Auto) 0.4 Eos # (Auto) 0.0 Baso # (Auto) 0.1 Abs Immat Gran (auto) 0.01 Absolute Neuts (auto) 5.4 Absolute Nucleated RBC 0.000 Nucleated RBC % (auto) 0.0 Anion Gap 14 Estim Creat Clear Calc 44.1 Estimated GFR 53 Random Glucose 105 Lactic Acid 2.0 Calcium 7.8 L D Total Bilirubin 0.7 AST 93 H ALT 88 H Alkaline Phosphatase 42 Total Protein 5.0 L Albumin 3.1 L Lipase 14 Procedures Date of Service Date of Service: 04/21/22 Progress Note: A&P Assessment and plan (1) S/P partial colectomy: Status: Acute (2) Internal hernia: Status: Acute (3) HTN (hypertension): Status: Acute Plan See orders regarding nasogastric clamping schedule. I am hopeful to remove it later today if she is continuing to have flatus. If residual is under 300 cc, will remove NG. Resume p.o. antihypertensive while the nasogastric tube was clamped this morning. Remove Baumann catheter Labs noted Trend CMP; transaminase elevation may be secondary to her septal had presentation. Decrease IVF to 100 cc/hour Ambulate Incentive spirometry Time Spent With Patient Time: Total time managing care of this patient today ____ minutes. Quality Stroke Does the patient have a stroke diagnosis?: No VTE Prior VTE?: No VTE Risk Level:: Surgical - moderate VTE Device Contraindication: N/A - Device Ordered VTE Drug Contraindication: Treatment Not Indicated
[2022-04-21] MEDS: hydroCHLOROthiazide 12.5 MG TABLET PO (10:26)
[2022-04-21] MEDS: Valsartan 80 MG TABLET PO (10:26)
[2022-04-21] MEDS: Heparin Sodium,Porcine 5,000 UNIT/ML VIAL 5000 UNIT SUBCUT (13:07)
--- NOTE | 2022-04-21 14:13 | HO.POSTANES ---
Post Anesthesia Evaluation Post Anesthesia Evaluation Vital Signs: Vital Signs Temp Pulse Resp BP Pulse Ox O2 Del Method 04/21/22 13:05 16 04/21/22 11:54 97 Room Air 04/21/22 08:00 99.7 F 96 17 135/91 H 96 Room Air 04/21/22 03:19 98.9 F 94 18 131/62 95 Room Air 04/21/22 02:16 98.2 F Anesthesia: General Endotracheal-GETA Mental Status: Awake Pain Control: Satisfactory (moderate pain) Nausea/Vomiting: Mild Hydration: Adequate Anesthesia-Related Issues: No Anes. Related Issues
--- NOTE | 2022-04-21 16:34 | MHC.CM.PN ---
PT REPORTS SHE LIVES WITH HER AND IS INDEPENDENT WITH CARE PT HAS NO DME AND NO SERVICES SHE REPORTS SHE DID A HCP WITH HER PCP PCP: ABDI DRUMMOND SHE SAYS SHE IS COVID VAX, NOT BOOSTED IMM DELIVERED DCP: HOME NO SERVICES TO TRANSPORT
--- NOTE | 2022-04-21 19:04 | PC.NURSE ---
Approx 1600 pt began complaining of abdominal discomfort. Abd was noted to be distended and tender. Intermittent NG suctioning reinstated per physician order. Pt reported improvement. 270ml were suctioned.
[2022-04-21] MEDS: Lactated Ringers 1,000 ML 100 ML IVCONT (23:42)
[2022-04-22] MEDS: Heparin Sodium,Porcine 5,000 UNIT/ML VIAL 5000 UNIT SUBCUT ×2 (00:49→14:08)
[2022-04-22] MEDS: HYDROmorphone HCl 0.5 MG/0.5 ML SYRINGE 0.25 MG IVPUSH ×2 (00:49→06:13)
[2022-04-22 04:00] VITALS: BP 136/63; PULSE 109; RESP 16; TEMP 37.6; O2SAT 94
[2022-04-22] MEDS: Pantoprazole Sodium 40 MG/10 ML VIAL IVPUSH (05:55)
--- NOTE | 2022-04-22 07:52 | PM.PNGS ---
Subjective Subjective Date of Service: 04/22/22 <Mena Narayanan PA-C - Last Filed: 04/22/22 08:03> 04/22/22 <Arturo Salmeron MD - Last Filed: 04/22/22 08:54> Patient reports: feels better, still having pain and flatus <Arturo Salmeron MD - Last Filed: 04/22/22 08:54> Interval history: NGT clamped yesterday but had increased bloating and therefore placed back to intermittent suction. Feels a little better this morning. She denies nausea and is passing some flatus. No BM. She mostly c/o congestion and throat discomfort from NGT. She is taking ice chips. Incisional pain is managed by analgesics which she is only taking to ambulate with but would like the tylenol. Has been OOB and ambulating, using the incentive spirometer hourly. <Mena Narayanan PA-C - Last Filed: 04/22/22 08:03> NGT clamped yesterday but had increased bloating and therefore placed back to intermittent suction. Feels a little better this morning. She denies nausea and is passing some flatus. No BM. She mostly c/o congestion and throat discomfort from NGT. She is taking ice chips. Incisional pain is managed by analgesics which she is only taking to ambulate with but would like the tylenol. Has been OOB and ambulating, using the incentive spirometer hourly. She otherwise denies chest pain, difficulty breathing or shortness of breath. <Arturo Salmeron MD - Last Filed: 04/22/22 08:54> Physical Exam Vital Signs: Vital Signs: Last Vital Signs Temp 99.7 F 04/22/22 04:00 Pulse 109 H 04/22/22 04:00 Resp 16 04/22/22 04:00 BP 136/63 04/22/22 04:00 Pulse Ox 94 04/22/22 04:00 O2 Del Method 04/22/22 04:00 O2 Flow Rate 2 04/20/22 14:00 BMI result Body Mass Index 23.0 <Mena Narayanan PA-C - Last Filed: 04/22/22 08:03> On exam, she is nontoxic and is in good spirits Bilious drainage is light green Abdomen is a little bloated with tympany. She has no peritoneal sign and expected tenderness is present. Dressings are clean and intact <Arturo Salmeron MD - Last Filed: 04/22/22 08:54> Const: General: comfortable, no acute distress and alert <MANJULA Gaitan Last Filed: 04/22/22 08:03> Orientation/consciousness: patient oriented x3 <Mena Narayanan PA-C - Last Filed: 04/22/22 08:03> HEENT: Other: NGT in place <MANJULA Gaitan Last Filed: 04/22/22 08:03> Resp: Effort & Inspection: normal respiratory effort <MANJULA Gaitan Last Filed: 04/22/22 08:03> GI: Inspection: Yes distended and Yes incision (clean, mario intact) <MANJULA Gaitna Last Filed: 04/22/22 08:03> Palpation (GI): Soft to palpation, Tenderness to palpation present (GI) (incisional), no guarding and not rigid <MANJULA Gaitan Last Filed: 04/22/22 08:03> Percussion: Yes tympanic to percussion <MANJULA Gaitan Last Filed: 04/22/22 08:03> Skin: General skin exam: no rashes or lesions noted <MANJULA Gaitan Last Filed: 04/22/22 08:03> Neuro: General: patient oriented x3 and moves all extremities <MANJULA Gaitan Last Filed: 04/22/22 08:03> Objective Data Active Medications Benzocaine (Throat Lozenge, Medicated Lozenge) 1 lozenge MUCOUS MEM Q2H PRN PRN Reason: Sore Throat Last Admin: 04/20/22 17:20 Dose: 1 lozenge Documented By: COCO.COTEMA Fentanyl (Fentanyl Citrate/Pf 100 Mcg/2 Ml Vial) 25 mcg IVPUSH Q5M PRN; Protocol PRN Reason: Pain, Moderate (Pain Scale 4-6 Heparin Sodium (Porcine) (Heparin Sodium,Porcine 5,000 Unit/Ml Vial) 5,000 unit SUBCUT Q12H [facility] Last Admin: 04/22/22 00:49 Dose: 5,000 unit Documented By: BC Hydrochlorothiazide (Hydrochlorothiazide 12.5 Mg Tablet) 12.5 mg PO DAILY [facility]; Protocol Last Admin: 04/21/22 10:26 Dose: 12.5 mg Documented By: GIULIANA Hydromorphone HCl (Hydromorphone Hcl 0.5 Mg/0.5 Ml Syringe) 0.25 mg IVPUSH Q5M PRN; Protocol PRN Reason: Pain, Severe (Pain Scale 7-10) Hydromorphone HCl (Hydromorphone Hcl 0.5 Mg/0.5 Ml Syringe) 0.25 mg IVPUSH Q2H PRN; Protocol PRN Reason: Pain, Moderate (Pain Scale 4-6 Last Admin: 04/22/22 06:13 Dose: 0.25 mg Documented By: BC Lactated Ringer's (Lr) 1,000 mls @ 100 mls/hr IVCONT .Q10H [facility] Last Admin: 04/21/22 23:42 Dose: 100 mls/hr Documented By: BC Promethazine HCl 12.5 mg/ (Sodium Chloride) 50.5 mls @ 202 mls/hr IV ONCE PRN PRN Reason: Nausea and Vomiting Acetaminophen (Ofirmev) 1,000 mg in 100 mls @ 400 mls/hr IV Q6H [facility] Ondansetron HCl (Ondansetron Hcl 4 Mg/2 Ml Vial) 4 mg IVPUSH ONCE PRN PRN Reason: Nausea and Vomiting Ondansetron HCl (Ondansetron Hcl 4 Mg/2 Ml Vial) 4 mg IVPUSH Q6H PRN PRN Reason: Nausea and Vomiting Pantoprazole Sodium (Pantoprazole Sodium 40 Mg/10 Ml Vial) 40 mg IVPUSH DAILY@0630 [facility] Last Admin: 04/22/22 05:55 Dose: 40 mg Documented By: BC Sodium Chloride (0.9 % Sodium Chloride Flush 3 Ml Syringe) 3 ml IVFLUSH QSHIFT [facility] Last Admin: 04/22/22 01:02 Dose: Not Given Documented By: BC Non-Admin Reason: IV Running Valsartan (Valsartan 80 Mg Tablet) 80 mg PO DAILY [facility] Last Admin: 04/21/22 10:26 Dose: 80 mg Documented By: GIULIANA <Mena Narayanan PA-C - Last Filed: 04/22/22 08:03> Labs CBC & Chem 7: 04/21/22 05:35 04/21/22 05:35 <Mena Narayanan PA-C - Last Filed: 04/22/22 08:03> Labs: Laboratory Results - last 24 hr 04/21/22 05:35 Calcium 7.8 L D <Mena Narayanan PA-C - Last Filed: 04/22/22 08:03> Microbiology Microbiology Results: Microbiology 04/20/22 07:37 Blood Culture - Preliminary Blood - Venous No growth after 24 hours. 04/20/22 07:37 Blood Culture - Preliminary Blood - Venous No growth after 24 hours. <Mena Narayanan PA-C - Last Filed: 04/22/22 08:03> Procedures Date of Service Date of Service: 04/22/22 <Mena Narayanan PA-C - Last Filed: 04/22/22 08:03> Progress Note: A&P Assessment and plan (1) S/P partial colectomy: Status: Acute <Mena Narayanan PA-C - Last Filed: 04/22/22 08:03> (2) Internal hernia: Status: Acute <Mena Narayanan PA-C - Last Filed: 04/22/22 08:03> Assessment and Plan: 66 year old female admitted with internal hernia now POD #2 s/p diagnostic laparoscopy with lysis of adhesions for 37 minute; conversion to laparotomy for ileocecal ectomy secondary to incarcerated hernia with possibly ischemic appearing bowel via foramen of [place]. NGT attempted to be clamped yesterday but had increasing distention. NGT output is overall low even with ice chip ingestion but she remains slightly distended despite passing flatus. VS- low grade fever, tachycardic. Will continue NGT to suction for now until more evidence of GI function. Cont IVF. Continue pain control- added IV tylenol. Will repeat CBC. ?Atelectasis. Educated to continue IS use 10x hourly, OOB and ambulating at least 4x/day. Reassess later today. <Mena Narayanan PA-C - Last Filed: 04/22/22 08:03> 66 year old female admitted with internal hernia now POD #2 s/p diagnostic laparoscopy with lysis of adhesions for 37 minute; conversion to laparotomy for ileocecal ectomy secondary to incarcerated hernia with possibly ischemic appearing bowel via foramen of [place]. NGT attempted to be clamped yesterday but had increasing distention. NGT output is overall low even with ice chip ingestion but she remains slightly distended despite passing flatus. VS- low grade fever, tachycardic. Will continue NGT to suction for now until more evidence of GI function. Cont IVF. Continue pain control- added IV tylenol. Will repeat CBC. ?Atelectasis. Educated to continue IS use 10x hourly, OOB and ambulating at least 4x/day. Reassess later today. Follow low-grade temperatures of 99+ F and borderline tachycardia. Patient appears clinically stable at this time and normal white blood cell count is reassuring. She is likely still equilibrating. Await bowel function; continue IV fluids. The antibiotic course is complete. Trend labs. <Arturo Salmeron MD - Last Filed: 04/22/22 08:54> Time Spent With Patient Time: Total time managing care of this patient today ____ minutes. <Mena Narayanan PA-C - Last Filed: 04/22/22 08:03> Quality Stroke Does the patient have a stroke diagnosis?: No <Mena Narayanan PA-C - Last Filed: 04/22/22 08:03> VTE Prior VTE?: No <Mena Narayanan PA-C - Last Filed: 04/22/22 08:03> VTE Risk Level:: Surgical - moderate <Mena Narayanan PA-C - Last Filed: 04/22/22 08:03> VTE Device Contraindication: N/A - Device Ordered <Mena Narayanan PA-C - Last Filed: 04/22/22 08:03> VTE Drug Contraindication: Treatment Not Indicated <Mena Narayanan PA-C - Last Filed: 04/22/22 08:03>
[2022-04-22 07:55] VITALS: BP 131/73; PULSE 104; RESP 18; TEMP 37.3; O2SAT 95
[2022-04-22 08:06] LABS: MANUAL DIFF FLAG NO
[2022-04-22 08:07] LABS: Alanine Aminotransferase 51 U/L (0-31); Albumin Level 3.1 g/dL (3.5-5.0); Alkaline Phosphatase 57 U/L (39-117); Anion Gap 20 (12-20); Aspartate Amino Transferase 42 U/L (5-31); Bilirubin Total 0.9 mg/dL (0.0-1.0); Blood Urea Nitrogen 11 mg/dL (9-16); Carbon Dioxide 18 mmol/L (22-29); Chloride 107 mmol/L (96-108); Creatinine Clr Calc Pharmacy 56.5; Estimated Glomerular Filt Rate > 60; Glucose Random 69 mg/dL (60-115); Potassium 3.6 mmol/L (3.3-5.1); Sodium 141 mmol/L (135-145); Total Protein 5.4 g/dL (6.5-8.0)
[2022-04-22 08:09] LABS: Basophils Absolute Auto 0.1 X10*3/uL (0.0-0.2); Basophils Percent Auto 0.8 % (0-2); Eosinophils Absolute Auto 0.1 X10*3/uL (0.0-0.4); Eosinophils Percent Auto 0.9 % (0-4); Hematocrit 29.7 % (37.0-47.0); Hemoglobin 9.8 g/dl (12.0-16.0); Imm Gran Abs Auto 0.03 X10*3/uL (0.00-0.03); Imm Gran Pct Auto 0.4 % (0.0-0.4); Lymphocytes Absolute Auto 1.2 X10*3/uL (1.2-4.9); Lymphocytes Percent Auto 13.9 % (20-40); Mean Corpuscular Hemoglobin 31.2 pg (27.0-33.0); Mean Corpuscular Volume 94.6 fL (80.0-98.0); Mean Platelet Volume 10.3 fL (9.4-12.3); Monocytes Absolute Auto 0.6 X10*3/uL (0.1-1.2); Monocytes Percent Auto 6.7 % (2-11); Neutrophils Absolute Auto 6.6 x10*3/uL (2.0-8.3); Neutrophils Percent Auto 77.3 % (45-73); Platelet Count 184 X10*3/uL (160-400); Red Blood Count 3.14 X10*6/uL (4.20-5.50); Red Cell Distribution Width 12.5 % (11.0-16.0); White Blood Count 8.5 X10*3/uL (4.8-10.8)
[2022-04-22 08:37] LABS: Alanine Aminotransferase 49 U/L (0-31); Albumin Level 3.1 g/dL (3.5-5.0); Alkaline Phosphatase 57 U/L (39-117); Anion Gap 18 (12-20); Aspartate Amino Transferase 39 U/L (5-31); Bilirubin Total 0.9 mg/dL (0.0-1.0); Blood Urea Nitrogen 11 mg/dL (9-16); Carbon Dioxide 20 mmol/L (22-29); Chloride 107 mmol/L (96-108); Creatinine Clr Calc Pharmacy 55.8; Estimated Glomerular Filt Rate > 60; Glucose Random 79 mg/dL (60-115); Potassium 3.6 mmol/L (3.3-5.1); Sodium 141 mmol/L (135-145); Total Protein 5.3 g/dL (6.5-8.0)
[2022-04-22] MEDS: 0.9 % Sodium Chloride Flush 3 ML SYRINGE IVFLUSH (08:45)
[2022-04-22] MEDS: Lactated Ringers 1,000 ML 100 ML IVCONT ×2 (10:04→20:24)
[2022-04-22] MEDS: Acetaminophen 1,000 MG/100 ML PIGGYBACK 400 MG IV ×3 (10:16→20:26)
[2022-04-22] MEDS: ondansetron HCL 4 MG/2 ML VIAL IVPUSH (10:25)
[2022-04-22] MEDS: Valsartan 80 MG TABLET PO (10:31)
[2022-04-22] MEDS: hydroCHLOROthiazide 12.5 MG TABLET PO (10:31)
[2022-04-22 11:00] VITALS: O2SAT 98
--- NOTE | 2022-04-22 12:42 | MHC.CM.PN ---
NOT CLEARED FOR DISCHARGE OF THIS NOTE.
[2022-04-22 15:34] VITALS: BP 141/65; PULSE 88; RESP 17; TEMP 36.4; O2SAT 98
--- NOTE | 2022-04-22 15:35 | P.CONHOSP_ITS ---
History of Present Illness Data of Consult Service Date: 04/22/22 Primary Care Provider: Abdirashid Atkinson MD [facility] Reason for consult: HTN management Pt is a 66-year-old female with a PMH significant for controlled HTN who presented to the ED with severe abdominal cramping and diarrhea, and was found to have an internal hernia through the foramen of [place]. Pt underwent colectomy and and had NGT placed. Patient on p.o. antihypertensives, but and able to tolerate p.o. meds due to NGT. Consult to medical for HTN management. Patient seen and evaluated in her room sitting comfortably in her chair, NGT in place. Patient reports irritation and sore throat secondary to NGT, and mild pain at surgical incision sites. Patient passing flatus but has not moved her bowels yet. Patient has no other acute complaints at this time. Patient denies headache, vision changes. No chest pain/pressure, palpitations. Denies shortness of breath. No numbness or tingling extremities. Review of Systems Review of Systems: Yes all other systems are reviewed and are negative [facility] Medical History (Updated 04/20/22 @ 08:29 by Samy Sandhu RN) Hypertension Surgical History (Updated 04/20/22 @ 16:02 by Arturo Salmeron MD) No pertinent past surgical history Social History Household Members: Spouse Housing: Condominium Do you presently have visiting nurse or other home services: No Alcohol intake: current Alcohol intake frequency: holidays/special occasions only Alcohol type: hard liquor Patient Tobacco Use Status: Never used Tobacco Smoked in Last 30 Days: No Second Hand Smoke Exposure: No Use of substances other than those prescribed or required for medical reasons: No Substance Use Type: Other Substance Use Type Other:: CBD oil Currently Displaying Signs/Symptoms of Drug Intoxication Withdrawal: No Have you been hit, kicked, punched, or otherwise hurt by someone within the past year? If so, by whom?: No Do you feel safe in your current relationship?: Yes Is there a partner from a previous relationship who is making you feel unsafe now?: No Are you made to feel afraid or neglected: No Are you DNR?: No Advance Directives: No Advance Directives Information Provided: Yes Advance Directives on File: No Do you have thoughts of harming others: None Do you have a plan to hurt others: No Plan Recently lost weight without trying: No Eating poorly because of decreased appetite: No Nutrition Risks: No Nutritional Risk Patient : No : No Poor oral hygiene: No service: No Current occupational status: retired [employer] Allergies Allergy/AdvReac Type Severity Reaction Status Date / Time No Known Allergies Allergy Verified 04/20/22 03:37 Active Medications: Current Medications Benzocaine (Throat Lozenge, Medicated Lozenge) 1 lozenge MUCOUS MEM Q2H PRN PRN Reason: Sore Throat Last Admin: 04/20/22 17:20 Dose: 1 lozenge Fentanyl (Fentanyl Citrate/Pf 100 Mcg/2 Ml Vial) 25 mcg IVPUSH Q5M PRN; Protocol PRN Reason: Pain, Moderate (Pain Scale 4-6 Heparin Sodium (Porcine) (Heparin Sodium,Porcine 5,000 Unit/Ml Vial) 5,000 unit SUBCUT Q12H [facility] Last Admin: 04/22/22 14:08 Dose: 5,000 unit Hydrochlorothiazide (Hydrochlorothiazide 12.5 Mg Tablet) 12.5 mg PO DAILY [facility]; Protocol Last Admin: 04/22/22 10:31 Dose: 12.5 mg Hydromorphone HCl (Hydromorphone Hcl 0.5 Mg/0.5 Ml Syringe) 0.25 mg IVPUSH Q5M PRN; Protocol PRN Reason: Pain, Severe (Pain Scale 7-10) Hydromorphone HCl (Hydromorphone Hcl 0.5 Mg/0.5 Ml Syringe) 0.25 mg IVPUSH Q2H PRN; Protocol PRN Reason: Pain, Moderate (Pain Scale 4-6 Last Admin: 04/22/22 06:13 Dose: 0.25 mg Lactated Ringer's (Lr) 1,000 mls @ 100 mls/hr IVCONT .Q10H [facility] Last Admin: 04/22/22 10:04 Dose: 100 mls/hr Promethazine HCl 12.5 mg/ (Sodium Chloride) 50.5 mls @ 202 mls/hr IV ONCE PRN PRN Reason: Nausea and Vomiting Acetaminophen (Ofirmev) 1,000 mg in 100 mls @ 400 mls/hr IV Q6H [facility] Last Infusion: 04/22/22 14:25 Dose: Infused Ondansetron HCl (Ondansetron Hcl 4 Mg/2 Ml Vial) 4 mg IVPUSH Q6H PRN PRN Reason: Nausea and Vomiting Pantoprazole Sodium (Pantoprazole Sodium 40 Mg/10 Ml Vial) 40 mg IVPUSH DAILY@0630 [facility] Last Admin: 04/22/22 05:55 Dose: 40 mg Sodium Chloride (0.9 % Sodium Chloride Flush 3 Ml Syringe) 3 ml IVFLUSH QSHIFT [facility] Last Admin: 04/22/22 08:45 Dose: 3 ml Valsartan (Valsartan 80 Mg Tablet) 80 mg PO DAILY [facility] Last Admin: 04/22/22 10:31 Dose: 80 mg Home Medications Medication Instructions Recorded Confirmed Last Taken Type cholecalciferol (vitamin D3) 25 25 mcg PO DAILY 04/20/22 04/20/22 04/19/22 History mcg (1,000 unit) tablet (Vitamin D3) estradiol 1 mg tablet 1 tab PO DAILY 04/20/22 04/20/22 04/19/22 History fish, borage, flaxseed oils-omega 1 cap PO BID 04/20/22 04/20/22 04/19/22 History 3,6,9 cb #1 400 mg-400 mg-400 mg cap (Triple [place] 3-6-9) glucosamine 750 qr-mphyxnytfjg-sva 1 tab PO BID 04/20/22 04/20/22 04/19/22 History no1 644 mg-C 30 mg-viky 1 mg tablet (Osteo Bi-Flex Triple Strength) magnesium oxide 250 mg PO BID 04/20/22 04/20/22 04/19/22 History methenamine-sodium salicylate 162 2 tab PO DAILY 04/20/22 04/20/22 Unknown History mg-162.5 mg tablet (AZO Urinary Tract Defense) vguaxphaftns-zpwetbcm-ycxjqa 1 tab PO DAILY 04/20/22 04/20/22 Unknown History tablet (Multivitamin 50 Plus tablet) olmesartan 20 1 tab PO DAILY 04/20/22 04/20/22 04/19/22 History mg-hydrochlorothiazide 12.5 mg tablet potassium gluconate 550 mg (90 mg) 550 mg PO DAILY 04/20/22 04/20/22 04/19/22 History tablet turmeric root extract 500 mg 1,000 mg PO DAILY 04/20/22 04/20/22 04/19/22 History capsule vitamin B complex 1 cap PO DAILY 04/20/22 04/20/22 04/19/22 History Physical Exam Vital Signs and Narrative: Vital Signs: Last Vital Signs Temp 97.5 F 04/22/22 15:34 Pulse 88 04/22/22 15:34 Resp 17 04/22/22 15:34 BP 141/65 H 04/22/22 15:34 Pulse Ox 98 04/22/22 15:34 O2 Del Method 04/22/22 15:34 O2 Flow Rate 2 04/20/22 14:00 BMI result Body Mass Index 23.0 General: AOx3, no acute distress, NGT in place Resp: CTA bilaterally CVS: S1, S2, RRR GI: Mild distension, abdomen soft, tender at incision sites Skin: No rash Neuro: Cranial nerves II-XII grossly intact. Motor grossly intact Extremities: No edema Psych: Appropriate affect Results Labs 04/22/22 07:38 04/22/22 07:38 Labs: Laboratory Results - last 24 hr 04/22/22 04/22/22 04/22/22 05:40 07:38 07:38 MCV 94.6 MCH 31.2 MCHC 33.0 RDW 12.5 Plt Count 184 MPV 10.3 Immature Gran % (Auto) 0.4 Neut % (Auto) 77.3 H Lymph % (Auto) 13.9 L [place] % (Auto) 6.7 Eos % (Auto) 0.9 Baso % (Auto) 0.8 Lymph # (Auto) 1.2 [place] # (Auto) 0.6 Eos # (Auto) 0.1 Baso # (Auto) 0.1 Abs Immat Gran (auto) 0.03 Absolute Neuts (auto) 6.6 Absolute Nucleated RBC 0.000 Nucleated RBC % (auto) 0.0 Anion Gap 20 18 Estim Creat Clear Calc 56.5 55.8 Estimated GFR > 60 > 60 Random Glucose 69 79 Calcium 8.0 L 8.0 L Total Bilirubin 0.9 0.9 AST 42 H 39 H ALT 51 H 49 H Alkaline Phosphatase 57 57 Total Protein 5.4 L 5.3 L Albumin 3.1 L 3.1 L Assessment and Plan (1) S/P partial colectomy: Status: Acute (2) Internal hernia: Status: Acute (3) HTN (hypertension): Status: Acute Plan Pt is a 66-year-old female with a PMH significant for controlled HTN who presented to the ED with severe abdominal cramping and diarrhea, and underwent surgery for internal hernia through the foramen of [place]. Pt underwent colectomy and and had NGT placed. Patient on p.o. antihypertensives, but and able to tolerate p.o. meds due to NGT. Consult to medical for HTN management. HTN PT unable to tolerate PO meds d/t NGT Hold hydrochlorothiazide, valsartan, continue when pt tolerates/NGT removed Hydralazine 5 mg IV q6 prn for SBP >180 Monitor BP Home meds Hold all other po home meds/supplements until pt can tolerate Internal hernia, SBO As per management by surgical team Thank you for allowing us to participate in the care of this pt. We will follow for now. Please contact us with any acute questions or concerns. Time Spent With Patient Time: Total time managing care of this patient today ____ minutes.
--- NOTE | 2022-04-22 16:06 | PC.NURSE ---
Shift eval 8:30am-3pm. Patient alert and oriented. Up out of bed x3 - 4 times. Ambulated approx 100ft in [place] x2. Patient receiving sched IV tylenol with good effect. Patient aware of PRN pain med available. Patient medicated w/ PRN zofran at 1025 with good effect. Patient tolerating PO pills - clamped NG tube for family law mediator for approx 30 min. NG tube output - 300ml green gastric contents. Spoke with Dr Salmeron about BP meds being given with NG tube - hospitalist consulted. Afebrile. Patient back in recliner after walk. at bedside. Report given to Tasia FORMAN.
[2022-04-22 20:00] VITALS: BP 138/68; PULSE 100; RESP 17; TEMP 36.4; O2SAT 97
[2022-04-23] MEDS: HYDROmorphone HCl 0.5 MG/0.5 ML SYRINGE 0.25 MG IVPUSH ×2 (00:11→22:27)
[2022-04-23] MEDS: Heparin Sodium,Porcine 5,000 UNIT/ML VIAL 5000 UNIT SUBCUT ×2 (00:12→11:45)
[2022-04-23] MEDS: 0.9 % Sodium Chloride Flush 3 ML SYRINGE IVFLUSH ×2 (00:16→16:10)
[2022-04-23] MEDS: Acetaminophen 1,000 MG/100 ML PIGGYBACK 400 MG IV ×4 (02:29→19:49)
[2022-04-23 03:52] VITALS: BP 154/84; PULSE 81; RESP 17; TEMP 36.8; O2SAT 94
[2022-04-23 04:00] VITALS: BP 129/59; PULSE 67; RESP 18; TEMP 36.3; O2SAT 97
[2022-04-23] MEDS: Lactated Ringers 1,000 ML 100 ML IVCONT (06:05)
[2022-04-23] MEDS: Pantoprazole Sodium 40 MG/10 ML VIAL IVPUSH (06:05)
[2022-04-23 06:17] LABS: MANUAL DIFF FLAG NO
[2022-04-23 06:30] LABS: Basophils Absolute Auto 0.1 X10*3/uL (0.0-0.2); Basophils Percent Auto 0.9 % (0-2); Eosinophils Absolute Auto 0.2 X10*3/uL (0.0-0.4); Eosinophils Percent Auto 3.5 % (0-4); Hematocrit 29.6 % (37.0-47.0); Hemoglobin 9.7 g/dl (12.0-16.0); Imm Gran Abs Auto 0.03 X10*3/uL (0.00-0.03); Imm Gran Pct Auto 0.4 % (0.0-0.4); Lymphocytes Absolute Auto 1.1 X10*3/uL (1.2-4.9); Lymphocytes Percent Auto 16.3 % (20-40); Mean Corpuscular HGB Conc 32.8 g/dl (31.0-35.0); Mean Corpuscular Hemoglobin 30.9 pg (27.0-33.0); Mean Corpuscular Volume 94.3 fL (80.0-98.0); Mean Platelet Volume 10.2 fL (9.4-12.3); Monocytes Absolute Auto 0.4 X10*3/uL (0.1-1.2); Monocytes Percent Auto 6.3 % (2-11); Neutrophils Percent Auto 72.6 % (45-73); Platelet Count 198 X10*3/uL (160-400); Red Blood Count 3.14 X10*6/uL (4.20-5.50); Red Cell Distribution Width 11.9 % (11.0-16.0); White Blood Count 6.9 X10*3/uL (4.8-10.8)
[2022-04-23 07:17] VITALS: BP 140/80; PULSE 75; RESP 16; TEMP 36.6; O2SAT 92
[2022-04-23 07:25] LABS: Alanine Aminotransferase 34 U/L (0-31); Albumin Level 2.9 g/dL (3.5-5.0); Alkaline Phosphatase 56 U/L (39-117); Aspartate Amino Transferase 24 U/L (5-31); Bilirubin Total 0.7 mg/dL (0.0-1.0); Blood Urea Nitrogen 11 mg/dL (9-16); Calcium 7.9 mg/dL (8.4-10.2); Creatinine Clr Calc Pharmacy 56.5; Estimated Glomerular Filt Rate > 60; Glucose Random 68 mg/dL (60-115); Total Protein 5.1 g/dL (6.5-8.0)
[2022-04-23 07:44] LABS: Anion Gap 23 (12-20); Carbon Dioxide 14 mmol/L (22-29); Chloride 108 mmol/L (96-108); Potassium 3.7 mmol/L (3.3-5.1); Sodium 141 mmol/L (135-145)
[2022-04-23 08:33] VITALS: BMI 25.0
[2022-04-23] MEDS: Throat Lozenge, Medicated LOZENGE 1 LOZENGE MUCOUS MEM (11:45)
--- NOTE | 2022-04-23 12:12 | HO.PM.IMPN ---
Subjective Subjective Date of Service: 04/23/22 Interval History: seen and examined this morning follow up for medical consultation no overnight events still with NGT, uncomfortable from that Review of Systems Review of Systems: Yes all other systems are reviewed and are negative Constitutional Constitutional: Denies chills and Denies fever(s) Cardiovascular Cardiovascular: Denies chest pain, Denies palpitations and Denies dyspnea Respiratory Respiratory: Denies cough and Denies dyspnea Gastrointestinal Gastrointestinal: Reports abdominal pain Endocrine Endocrine: Denies palpitations Physical Exam Vital Signs: Vital Signs: Last Vital Signs Temp 97.8 F 04/23/22 07:17 Pulse 75 04/23/22 07:17 Resp 16 04/23/22 07:17 BP 140/80 H 04/23/22 07:17 Pulse Ox 92 04/23/22 07:17 O2 Del Method 04/23/22 07:17 O2 Flow Rate 2 04/20/22 14:00 BMI result Body Mass Index 25.0 Const: General: cooperative, healthy appearing, alert and awake Nutritional Appearance: average body habitus Orientation/consciousness: patient oriented x3 HEENT: Other: NGT in place Resp: Effort & Inspection: normal respiratory effort and able to speak in complete sentences Cardio: Rate: regular rate Heart sounds: S1 normal heart sound present and S2 normal heart sound present GI: Other: midline mario intact, frank-incisional tenderness Neuro: General: patient oriented x3 and CN's II-XI intact bilaterally Extrem: General: Yes no pedal edema Objective Data Active Medications Benzocaine (Throat Lozenge, Medicated Lozenge) 1 lozenge MUCOUS MEM Q2H PRN PRN Reason: Sore Throat Last Admin: 04/23/22 11:45 Dose: 1 lozenge Documented By: NOAH Fentanyl (Fentanyl Citrate/Pf 100 Mcg/2 Ml Vial) 25 mcg IVPUSH Q5M PRN; Protocol PRN Reason: Pain, Moderate (Pain Scale 4-6 Heparin Sodium (Porcine) (Heparin Sodium,Porcine 5,000 Unit/Ml Vial) 5,000 unit SUBCUT Q12H [facility] Last Admin: 04/23/22 11:45 Dose: 5,000 unit Documented By: NOAH Hydralazine HCl (Hydralazine Hcl 20 Mg/Ml Vial) 5 mg IVPUSH Q6H PRN; Protocol PRN Reason: Sbp > 180 Hydrochlorothiazide (Hydrochlorothiazide 12.5 Mg Tablet) 12.5 mg PO DAILY [facility]; Protocol Last Admin: 04/22/22 10:31 Dose: 12.5 mg Documented By: JEANETTE Hydromorphone HCl (Hydromorphone Hcl 0.5 Mg/0.5 Ml Syringe) 0.25 mg IVPUSH Q5M PRN; Protocol PRN Reason: Pain, Severe (Pain Scale 7-10) Hydromorphone HCl (Hydromorphone Hcl 0.5 Mg/0.5 Ml Syringe) 0.25 mg IVPUSH Q2H PRN; Protocol PRN Reason: Pain, Moderate (Pain Scale 4-6 Last Admin: 04/23/22 00:11 Dose: 0.25 mg Documented By: ODESSA Lactated Ringer's (Lr) 1,000 mls @ 70 mls/hr IVCONT .[id number] [facility] Last Infusion: 04/23/22 08:42 Dose: 70 mls/hr Documented By: NOAH Promethazine HCl 12.5 mg/ (Sodium Chloride) 50.5 mls @ 202 mls/hr IV ONCE PRN PRN Reason: Nausea and Vomiting Acetaminophen (Ofirmev) 1,000 mg in 100 mls @ 400 mls/hr IV Q6H [facility] Last Infusion: 04/23/22 09:08 Dose: 0 mls/hr Documented By: NOAH Nystatin (Nystatin Powder 15 Gm Bottle) 1 appl TOPICAL BID [facility]; Protocol Ondansetron HCl (Ondansetron Hcl 4 Mg/2 Ml Vial) 4 mg IVPUSH Q6H PRN PRN Reason: Nausea and Vomiting Pantoprazole Sodium (Pantoprazole Sodium 40 Mg/10 Ml Vial) 40 mg IVPUSH DAILY@0630 [facility] Last Admin: 04/23/22 06:05 Dose: 40 mg Documented By: ODESSA Sodium Chloride (0.9 % Sodium Chloride Flush 3 Ml Syringe) 3 ml IVFLUSH QSHIFT [facility] Last Admin: 04/23/22 09:08 Dose: Not Given Documented By: NOAH Non-Admin Reason: IV Running Valsartan (Valsartan 80 Mg Tablet) 80 mg PO DAILY [facility] Last Admin: 02/10/23 10:31 Dose: 80 mg Documented By: JEANETTE Labs 04/23/22 05:48 04/23/22 05:48 Labs: Laboratory Results - last 24 hr 04/23/22 04/23/22 05:48 05:48 MCV 94.3 MCH 30.9 MCHC 32.8 RDW 11.9 Plt Count 198 MPV 10.2 Immature Gran % (Auto) 0.4 Neut % (Auto) 72.6 Lymph % (Auto) 16.3 L [place] % (Auto) 6.3 Eos % (Auto) 3.5 Baso % (Auto) 0.9 Lymph # (Auto) 1.1 L [place] # (Auto) 0.4 Eos # (Auto) 0.2 Baso # (Auto) 0.1 Abs Immat Gran (auto) 0.03 Absolute Neuts (auto) 5.0 Absolute Nucleated RBC 0.000 Nucleated RBC % (auto) 0.0 Anion Gap 23 H Estim Creat Clear Calc 56.5 Estimated GFR > 60 Random Glucose 68 Calcium 7.9 L Total Bilirubin 0.7 AST 24 ALT 34 H Alkaline Phosphatase 56 Total Protein 5.1 L Albumin 2.9 L Microbiology Microbiology Results: Microbiology 04/20/22 07:37 Blood Culture - Preliminary Blood - Venous No growth after 48 hours. 04/20/22 07:37 Blood Culture - Preliminary Blood - Venous No growth after 48 hours. Assessment and Plan (1) S/P partial colectomy: Status: Acute (2) HTN (hypertension): Status: Acute Plan Pt is a 66-year-old female with a PMH significant for controlled HTN who presented to the ED with severe abdominal cramping and diarrhea, and underwent surgery for internal hernia through the foramen of Javier. Pt underwent colectomy and had NGT placed. Patient on p.o. antihypertensives, but and able to tolerate p.o. meds due to NGT. Consult to medical for HTN management. HTN blood pressure in acceptable range Hold hydrochlorothiazide, valsartan, continue when pt tolerates/NGT removed Hydralazine 5 mg IV q6 prn for SBP >180 Monitor BP Home meds Hold all other po home meds/supplements until pt can tolerate Normocytic anemia likely in postoperative setting H/H stable mild transaminitis improving POD#3 s/p laparotomy for incarcerated hernia management per surgical team Thank you for allowing us to participate in the care of this pt. We will follow for now. Time Spent With Patient Time: Total time managing care of this patient today ____ minutes. Quality Stroke Does the patient have a stroke diagnosis?: No VTE Prior VTE?: No VTE Risk Level:: Surgical - moderate VTE Device Contraindication: N/A - Device Ordered VTE Drug Contraindication: Treatment Not Indicated
--- NOTE | 2022-04-23 12:18 | PM.PNGS ---
Subjective Subjective Date of Service: 04/23/22 Interval history: pt is doing well, looks good, no issues, passing some gas Physical Exam Vital Signs: Vital Signs: Last Vital Signs Temp 97.8 F 04/23/22 07:17 Pulse 75 04/23/22 07:17 Resp 16 04/23/22 07:17 BP 140/80 H 04/23/22 07:17 Pulse Ox 92 04/23/22 07:17 O2 Del Method 04/23/22 07:17 O2 Flow Rate 2 04/20/22 14:00 BMI result Body Mass Index 25.0 Const: General: cooperative, healthy appearing and comfortable Resp: Effort & Inspection: able to speak in complete sentences Auscultation: clear to auscultation bilaterally Cardio: Rate: regular rate Rhythm: regular rhythm GI: Other: soft nondistended improving bowel sounds incision looks great nontender Skin: General skin exam: no rashes or lesions noted Objective Data Active Medications Benzocaine (Throat Lozenge, Medicated Lozenge) 1 lozenge MUCOUS MEM Q2H PRN PRN Reason: Sore Throat Last Admin: 04/23/22 11:45 Dose: 1 lozenge Documented By: NOAH Fentanyl (Fentanyl Citrate/Pf 100 Mcg/2 Ml Vial) 25 mcg IVPUSH Q5M PRN; Protocol PRN Reason: Pain, Moderate (Pain Scale 4-6 Heparin Sodium (Porcine) (Heparin Sodium,Porcine 5,000 Unit/Ml Vial) 5,000 unit SUBCUT Q12H [facility] Last Admin: 04/23/22 11:45 Dose: 5,000 unit Documented By: NOAH Hydralazine HCl (Hydralazine Hcl 20 Mg/Ml Vial) 5 mg IVPUSH Q6H PRN; Protocol PRN Reason: Sbp > 180 Hydrochlorothiazide (Hydrochlorothiazide 12.5 Mg Tablet) 12.5 mg PO DAILY [facility]; Protocol Last Admin: 04/22/22 10:31 Dose: 12.5 mg Documented By: JEANETTE Hydromorphone HCl (Hydromorphone Hcl 0.5 Mg/0.5 Ml Syringe) 0.25 mg IVPUSH Q5M PRN; Protocol PRN Reason: Pain, Severe (Pain Scale 7-10) Hydromorphone HCl (Hydromorphone Hcl 0.5 Mg/0.5 Ml Syringe) 0.25 mg IVPUSH Q2H PRN; Protocol PRN Reason: Pain, Moderate (Pain Scale 4-6 Last Admin: 04/23/22 00:11 Dose: 0.25 mg Documented By: ODESSA Lactated Ringer's (Lr) 1,000 mls @ 70 mls/hr IVCONT .[id number] [facility] Last Infusion: 04/23/22 08:42 Dose: 70 mls/hr Documented By: NOAH Promethazine HCl 12.5 mg/ (Sodium Chloride) 50.5 mls @ 202 mls/hr IV ONCE PRN PRN Reason: Nausea and Vomiting Acetaminophen (Ofirmev) 1,000 mg in 100 mls @ 400 mls/hr IV Q6H [facility] Last Infusion: 04/23/22 09:08 Dose: 0 mls/hr Documented By: NOAH Nystatin (Nystatin Powder 15 Gm Bottle) 1 appl TOPICAL BID [facility]; Protocol Ondansetron HCl (Ondansetron Hcl 4 Mg/2 Ml Vial) 4 mg IVPUSH Q6H PRN PRN Reason: Nausea and Vomiting Pantoprazole Sodium (Pantoprazole Sodium 40 Mg/10 Ml Vial) 40 mg IVPUSH DAILY@0630 [facility] Last Admin: 04/23/22 06:05 Dose: 40 mg Documented By: ODESSA Sodium Chloride (0.9 % Sodium Chloride Flush 3 Ml Syringe) 3 ml IVFLUSH QSHIFT [facility] Last Admin: 04/23/22 09:08 Dose: Not Given Documented By: NOAH Non-Admin Reason: IV Running Valsartan (Valsartan 80 Mg Tablet) 80 mg PO DAILY [facility] Last Admin: 04/22/22 10:31 Dose: 80 mg Documented By: JEANETTE Labs 04/23/22 05:48 04/23/22 05:48 Labs: Laboratory Results - last 24 hr 04/23/22 04/23/22 05:48 05:48 MCV 94.3 MCH 30.9 MCHC 32.8 RDW 11.9 Plt Count 198 MPV 10.2 Immature Gran % (Auto) 0.4 Neut % (Auto) 72.6 Lymph % (Auto) 16.3 L [place] % (Auto) 6.3 Eos % (Auto) 3.5 Baso % (Auto) 0.9 Lymph # (Auto) 1.1 L [place] # (Auto) 0.4 Eos # (Auto) 0.2 Baso # (Auto) 0.1 Abs Immat Gran (auto) 0.03 Absolute Neuts (auto) 5.0 Absolute Nucleated RBC 0.000 Nucleated RBC % (auto) 0.0 Anion Gap 23 H Estim Creat Clear Calc 56.5 Estimated GFR > 60 Random Glucose 68 Calcium 7.9 L Total Bilirubin 0.7 AST 24 ALT 34 H Alkaline Phosphatase 56 Total Protein 5.1 L Albumin 2.9 L Microbiology Microbiology Results: Microbiology 04/20/22 07:37 Blood Culture - Preliminary Blood - Venous No growth after 48 hours. 04/20/22 07:37 Blood Culture - Preliminary Blood - Venous No growth after 48 hours. Procedures Date of Service Date of Service: 04/23/22 Progress Note: A&P Assessment and plan (1) S/P partial colectomy: Status: Acute Assessment and Plan: pod#3 doing very well - ng removed earlier, not much output feeling well, passing some gas advance to clear liquids and keep iv for now ambulate Time Spent With Patient Time: Total time managing care of this patient today ____ minutes. Quality Stroke Does the patient have a stroke diagnosis?: No VTE Prior VTE?: No VTE Risk Level:: Surgical - moderate VTE Device Contraindication: N/A - Device Ordered VTE Drug Contraindication: Treatment Not Indicated
[2022-04-23] MEDS: Nystatin Powder 15 GM BOTTLE 1 APPL TOPICAL ×2 (12:28→19:55)
[2022-04-23 15:48] VITALS: BP 126/60; PULSE 86; RESP 16; TEMP 37.3; O2SAT 96
[2022-04-23] MEDS: Lactated Ringers 1,000 ML 70 ML IVCONT (19:48)
[2022-04-23 20:00] VITALS: BP 145/71; PULSE 93; RESP 16; TEMP 37.1; O2SAT 98
[2022-04-24] VITALS (7 sets, daily range): BP systolic 146–182; BP diastolic 68–93; PULSE 84–90; RESP 16–20; TEMP 36.6–37.2; O2SAT 92–99
[2022-04-24] MEDS: 0.9 % Sodium Chloride Flush 3 ML SYRINGE IVFLUSH ×4 (00:32→23:38)
[2022-04-24] MEDS: Acetaminophen 1,000 MG/100 ML PIGGYBACK 400 MG IV ×2 (01:32→07:47)
[2022-04-24] MEDS: Heparin Sodium,Porcine 5,000 UNIT/ML VIAL 5000 UNIT SUBCUT ×3 (01:35→23:47)
[2022-04-24] MEDS: Pantoprazole Sodium 40 MG/10 ML VIAL IVPUSH (05:55)
[2022-04-24] MEDS: Nystatin Powder 15 GM BOTTLE 1 APPL TOPICAL ×2 (07:48→19:57)
[2022-04-24] MEDS: Lactated Ringers 1,000 ML 50 ML IVCONT (10:32)
--- NOTE | 2022-04-24 10:32 | HO.PM.IMPN ---
Subjective Subjective Date of Service: 04/24/22 Interval History: seen and examined this morning follow up for medical consultation, hypertension NGT out yesterday had BM this am, reports some frank-incisonal tenderness no vomiting Review of Systems Review of Systems: Yes all other systems are reviewed and are negative Constitutional Constitutional: Denies chills and Denies fever(s) Cardiovascular Cardiovascular: Denies chest pain, Denies palpitations and Denies dyspnea Respiratory Respiratory: Denies cough and Denies dyspnea Gastrointestinal Gastrointestinal: Reports abdominal pain Endocrine Endocrine: Denies palpitations Physical Exam Vital Signs: Vital Signs: Last Vital Signs Temp 98.9 F 04/24/22 08:00 Pulse 89 04/24/22 08:00 Resp 16 04/24/22 08:00 BP 149/68 H 04/24/22 08:00 Pulse Ox 96 04/24/22 08:00 O2 Del Method 04/24/22 08:00 O2 Flow Rate 2 04/20/22 14:00 BMI result Body Mass Index 25.0 Const: General: cooperative, healthy appearing, alert and awake Nutritional Appearance: average body habitus Orientation/consciousness: patient oriented x3 Resp: Effort & Inspection: normal respiratory effort and able to speak in complete sentences Cardio: Rate: regular rate Heart sounds: S1 normal heart sound present and S2 normal heart sound present GI: Other: midline mario intact, frank-incisional tenderness Neuro: General: patient oriented x3 and CN's II-XI intact bilaterally Extrem: General: Yes no pedal edema Objective Data Active Medications Acetaminophen (Acetaminophen 325 Mg Tablet) 975 mg PO Q6H PRN PRN Reason: Pain, Mild (Pain Scale 1-3) Benzocaine (Throat Lozenge, Medicated Lozenge) 1 lozenge MUCOUS MEM Q2H PRN PRN Reason: Sore Throat Last Admin: 04/23/22 11:45 Dose: 1 lozenge Documented By: NOAH Docusate Sodium (Docusate Sodium 100 Mg Capsule) 200 mg PO BID [facility] Heparin Sodium (Porcine) (Heparin Sodium,Porcine 5,000 Unit/Ml Vial) 5,000 unit SUBCUT Q12H [facility] Last Admin: 04/24/22 01:35 Dose: 5,000 unit Documented By: ODESSA Hydrochlorothiazide (Hydrochlorothiazide 12.5 Mg Tablet) 12.5 mg PO DAILY [facility]; Protocol Last Admin: 04/22/22 10:31 Dose: 12.5 mg Documented By: JEANETTE Hydromorphone HCl (Hydromorphone Hcl 0.5 Mg/0.5 Ml Syringe) 0.25 mg IVPUSH Q2H PRN; Protocol PRN Reason: Pain, Moderate (Pain Scale 4-6 Last Admin: 04/23/22 22:27 Dose: 0.25 mg Documented By: SANDOR Lactated Ringer's (Lr) 1,000 mls @ 50 mls/hr IVCONT .Q20H [facility] Last Admin: 04/24/22 10:32 Dose: 50 mls/hr Documented By: NOAH Nystatin (Nystatin Powder 15 Gm Bottle) 1 appl TOPICAL BID [facility]; Protocol Last Admin: 04/24/22 07:48 Dose: 1 appl Documented By: NOAH Ondansetron HCl (Ondansetron Hcl 4 Mg/2 Ml Vial) 4 mg IVPUSH Q6H PRN PRN Reason: Nausea and Vomiting Pantoprazole Sodium (Pantoprazole Sodium 40 Mg/10 Ml Vial) 40 mg IVPUSH DAILY@0630 [facility] Last Admin: 04/24/22 05:55 Dose: 40 mg Documented By: ODESSA Sodium Chloride (0.9 % Sodium Chloride Flush 3 Ml Syringe) 3 ml IVFLUSH QSHIFT [facility] Last Admin: 04/24/22 07:48 Dose: 3 ml Documented By: NOAH Valsartan (Valsartan 80 Mg Tablet) 80 mg PO DAILY [facility] Last Admin: 04/22/22 10:31 Dose: 80 mg Documented By: JEANETTE Labs 04/23/22 05:48 04/23/22 05:48 Assessment and Plan (1) HTN (hypertension): Status: Acute Plan Pt is a 66-year-old female with a PMH significant for controlled HTN who presented to the ED with severe abdominal cramping and diarrhea, and underwent surgery for internal hernia through the foramen of [place]. Pt underwent colectomy and had NGT placed. Patient on p.o. antihypertensives, but and able to tolerate p.o. meds due to NGT. Consult to medical for HTN management. HTN blood pressure in acceptable range NGT removed, diet advance, can resume home medications Home meds on numerous supplements at home, can be resumed at d/c Normocytic anemia likely in postoperative setting H/H stable mild transaminitis improving POD#4 s/p laparotomy/partial colectomy for incarcerated hernia management per surgical team Thank you for allowing us to participate in the care of this pt. no acute medical conditions, we will sign off at this time. please feel free to call us if anything acute arises. Time Spent With Patient Time: Total time managing care of this patient today ____ minutes. Quality Stroke Does the patient have a stroke diagnosis?: No VTE Prior VTE?: No VTE Risk Level:: Surgical - moderate VTE Device Contraindication: N/A - Device Ordered VTE Drug Contraindication: Treatment Not Indicated
--- NOTE | 2022-04-24 11:37 | P.PNGS_ITS ---
Subjective Subjective Date of Service: 04/24/22 Interval history: pt looks good and was tolerating liquids well with liquid stools and urgernt stools but now feeling a little nauseated Physical Exam Vital Signs: Vital Signs: Last Vital Signs Temp 98.9 F 04/24/22 08:00 Pulse 89 04/24/22 08:00 Resp 16 04/24/22 08:00 BP 149/68 H 04/24/22 08:00 Pulse Ox 96 04/24/22 08:00 O2 Del Method 04/24/22 08:00 O2 Flow Rate 2 04/20/22 14:00 BMI result Body Mass Index 25.0 Const: General: cooperative, healthy appearing, comfortable and no acute distress Orientation/consciousness: oriented to person, oriented to place and oriented to time Resp: Effort & Inspection: normal respiratory effort Auscultation: clear to auscultation bilaterally Cardio: Rate: regular rate Rhythm: regular rhythm GI: Other: abdomen soft nontender, good active bowel sounds and incisions c/d/i no erythema Skin: General skin exam: no rashes or lesions noted Neuro: General: oriented to person, oriented to place and oriented to time Extrem: General: Yes normal to inspection Psych: Appearance: grossly normal Speech and movement: Normal speech and movement present Objective Data Active Medications Acetaminophen (Acetaminophen 325 Mg Tablet) 975 mg PO Q6H PRN PRN Reason: Pain, Mild (Pain Scale 1-3) Benzocaine (Throat Lozenge, Medicated Lozenge) 1 lozenge MUCOUS MEM Q2H PRN PRN Reason: Sore Throat Last Admin: 04/23/22 11:45 Dose: 1 lozenge Documented By: NOAH Docusate Sodium (Docusate Sodium 100 Mg Capsule) 200 mg PO BID [facility] Heparin Sodium (Porcine) (Heparin Sodium,Porcine 5,000 Unit/Ml Vial) 5,000 unit SUBCUT Q12H [facility] Last Admin: 04/24/22 01:35 Dose: 5,000 unit Documented By: ODESSA Hydrochlorothiazide (Hydrochlorothiazide 12.5 Mg Tablet) 12.5 mg PO DAILY [facility]; Protocol Last Admin: 04/22/22 10:31 Dose: 12.5 mg Documented By: JEANETTE Hydromorphone HCl (Hydromorphone Hcl 0.5 Mg/0.5 Ml Syringe) 0.25 mg IVPUSH Q2H PRN; Protocol PRN Reason: Pain, Moderate (Pain Scale 4-6 Last Admin: 04/23/22 22:27 Dose: 0.25 mg Documented By: SANDOR Lactated Ringer's (Lr) 1,000 mls @ 50 mls/hr IVCONT .Q20H [facility] Last Admin: 04/24/22 10:32 Dose: 50 mls/hr Documented By: NOAH Nystatin (Nystatin Powder 15 Gm Bottle) 1 appl TOPICAL BID [facility]; Protocol Last Admin: 04/24/22 07:48 Dose: 1 appl Documented By: NOAH Ondansetron HCl (Ondansetron Hcl 4 Mg/2 Ml Vial) 4 mg IVPUSH Q6H PRN PRN Reason: Nausea and Vomiting Pantoprazole Sodium (Pantoprazole Sodium 40 Mg/10 Ml Vial) 40 mg IVPUSH DAILY@0630 [facility] Last Admin: 04/24/22 05:55 Dose: 40 mg Documented By: ODESSA Sodium Chloride (0.9 % Sodium Chloride Flush 3 Ml Syringe) 3 ml IVFLUSH QSHIFT [facility] Last Admin: 04/24/22 07:48 Dose: 3 ml Documented By: NOAH Valsartan (Valsartan 80 Mg Tablet) 80 mg PO DAILY [facility] Last Admin: 04/22/22 10:31 Dose: 80 mg Documented By: JEANETTE Labs 04/23/22 05:48 04/23/22 05:48 Procedures Date of Service Date of Service: 04/24/22 Progress Note: A&P Assessment and plan (1) S/P partial colectomy: Status: Acute Assessment and Plan: pt overall doing well s/p ileocolic resection for internal hernia - little nausea will decrease p intake to sips of clears until feels better, no advancing to reg diet today decrease po pain meds as tolerated ivf to continue ambulate pt understands and agrees with plan Time Spent With Patient Time: Total time managing care of this patient today ____ minutes. Quality Stroke Does the patient have a stroke diagnosis?: No VTE Prior VTE?: No VTE Risk Level:: Surgical - moderate VTE Device Contraindication: N/A - Device Ordered VTE Drug Contraindication: Treatment Not Indicated
[2022-04-24] MEDS: Acetaminophen 325 MG TABLET 975 MG PO (16:54)
[2022-04-24] MEDS: HYDROmorphone HCl 0.5 MG/0.5 ML SYRINGE 0.25 MG IVPUSH (22:42)
[2022-04-25] MEDS: Acetaminophen 325 MG TABLET 975 MG PO (03:33)
[2022-04-25 04:00] VITALS: BP 177/79; PULSE 90; RESP 18; TEMP 36.8; O2SAT 96
[2022-04-25] MEDS: Pantoprazole Sodium 40 MG/10 ML VIAL IVPUSH (05:36)
[2022-04-25] MEDS: Lactated Ringers 1,000 ML 50 ML IVCONT (05:39)
--- NOTE | 2022-04-25 07:41 | PM.PNGS ---
Subjective Subjective Date of Service: 04/25/22 Patient reports: no new complaints, tolerating liquids well, flatus and bowel movement Interval history: Report minimal bloating and has had a fair amount of gas and loose stool but not had any solid food yet. She denies any chest pain, difficulty breathing, shortness of breath. She notes that her intestines are not working normally, and given the rarity of her internal hernia, she is understandably concerned. We discussed her progress in options. Her questions seemed to be satisfactorily answered. Physical Exam Vital Signs: Vital Signs: Last Vital Signs Temp 98.3 F 04/25/22 04:00 Pulse 90 04/25/22 04:00 Resp 18 04/25/22 04:00 BP 177/79 H 04/25/22 04:00 Pulse Ox 96 04/25/22 04:00 O2 Del Method 04/25/22 04:00 O2 Flow Rate 2 04/20/22 14:00 BMI result Body Mass Index 25.0 On exam she is nontoxic Sclera anicteric She is in no respiratory distress Abdomen is at its baseline according to the patient. There is no incisional redness or significant tenderness. Some scattered tympany with no peritoneal sign to percussion is noted abdomen is soft and nondistended Objective Data Active Medications Acetaminophen (Acetaminophen 325 Mg Tablet) 975 mg PO Q6H PRN PRN Reason: Pain, Mild (Pain Scale 1-3) Last Admin: 04/25/22 03:33 Dose: 975 mg Documented By: MARIA ISABEL Benzocaine (Throat Lozenge, Medicated Lozenge) 1 lozenge MUCOUS MEM Q2H PRN PRN Reason: Sore Throat Last Admin: 04/23/22 11:45 Dose: 1 lozenge Documented By: NOAH Docusate Sodium (Docusate Sodium 100 Mg Capsule) 200 mg PO BID [facility] Last Admin: 04/24/22 19:52 Dose: Not Given Documented By: SANDOR Non-Admin Reason: loose stools Heparin Sodium (Porcine) (Heparin Sodium,Porcine 5,000 Unit/Ml Vial) 5,000 unit SUBCUT Q12H [facility] Last Admin: 04/24/22 23:47 Dose: 5,000 unit Documented By: MARIA ISABEL Hydrochlorothiazide (Hydrochlorothiazide 12.5 Mg Tablet) 12.5 mg PO DAILY [facility]; Protocol Last Admin: 04/22/22 10:31 Dose: 12.5 mg Documented By: JEANETTE Hydromorphone HCl (Hydromorphone Hcl 0.5 Mg/0.5 Ml Syringe) 0.25 mg IVPUSH Q2H PRN; Protocol PRN Reason: Pain, Moderate (Pain Scale 4-6 Last Admin: 04/24/22 22:42 Dose: 0.25 mg Documented By: SANDOR Lactated Ringer's (Lr) 1,000 mls @ 50 mls/hr IVCONT .Q20H [facility] Last Admin: 04/25/22 05:39 Dose: 50 mls/hr Documented By: MARIA ISABEL Nystatin (Nystatin Powder 15 Gm Bottle) 1 appl TOPICAL BID [facility]; Protocol Last Admin: 04/24/22 19:57 Dose: 1 appl Documented By: SANDOR Ondansetron HCl (Ondansetron Hcl 4 Mg/2 Ml Vial) 4 mg IVPUSH Q6H PRN PRN Reason: Nausea and Vomiting Pantoprazole Sodium (Pantoprazole Sodium 40 Mg/10 Ml Vial) 40 mg IVPUSH DAILY@0630 [facility] Last Admin: 04/25/22 05:36 Dose: 40 mg Documented By: MARIA ISABEL Sodium Chloride (0.9 % Sodium Chloride Flush 3 Ml Syringe) 3 ml IVFLUSH QSHIFT [facility] Last Admin: 04/24/22 23:38 Dose: 3 ml Documented By: MARIA ISABEL Valsartan (Valsartan 80 Mg Tablet) 80 mg PO DAILY [facility] Last Admin: 04/22/22 10:31 Dose: 80 mg Documented By: JEANETTE Labs 04/23/22 05:48 04/23/22 05:48 Procedures Date of Service Date of Service: 04/25/22 Progress Note: A&P Assessment and plan (1) S/P partial colectomy: Status: Acute (2) Internal hernia: Status: Acute (3) HTN (hypertension): Status: Acute Plan Will advance to a regular diet and reassess for probable discharge later today. Patient is instructed to advise the nurse if she becomes bloated, has nausea or vomiting after eating regular food. See discharge plan which was discussed with the patient. The importance of proper diet and was discussed. Pain management and bowel regime were reviewed and her questions answered. Assuming discharge later today, she will need to see me in a week for staple removal Time Spent With Patient Time: Total time managing care of this patient today ____ minutes. Quality Stroke Does the patient have a stroke diagnosis?: No VTE Prior VTE?: No VTE Risk Level:: Surgical - moderate VTE Device Contraindication: N/A - Device Ordered VTE Drug Contraindication: Treatment Not Indicated
[2022-04-25 08:00] VITALS: BP 169/74; PULSE 88; RESP 17; TEMP 36.6; O2SAT 96
[2022-04-25] MEDS: Valsartan 80 MG TABLET PO (09:58)
[2022-04-25] MEDS: hydroCHLOROthiazide 12.5 MG TABLET PO (09:58)
[2022-04-25] MEDS: Nystatin Powder 15 GM BOTTLE 1 APPL TOPICAL (10:01)
--- NOTE | 2022-04-25 12:37 | P.DS_ITS ---
DS: Providers Provider Date of Service: 04/25/22 Date of admission: 04/20/22 12:34 Primary care physician: Abdirashid Atkinson MD Consults: 04/20/22 07:12 Consult to General Surgery Stat Consulting Provider: Arturo Salmeron Reason for consultation: SBO Has provider been notified: Yes 04/22/22 10:30 Consult to Hospitalist Routine Consulting Provider: Hospitalist Reason For Exam: HTN & NPO due to colon resection DS: Diagnosis Discharge Diagnosis (1) S/P partial colectomy: Status: Acute (2) Internal hernia: Status: Acute (3) HTN (hypertension): Status: Acute DS: Summary Hospital Course Hospital Course: See admitting H and P for full details. Briefly, this 66-year-old woman with a history of hypertension presented acutely with an internal hernia through the foramen of [place] and required ileocecal ectomy with ileocolonic anastomosis. Postoperatively, nasogastric decompression was performed. While she had return of flatus on postop day 1, she was still significantly bloated and over her hospitalization, tolerated the NG being clamped and a clear diet being started. Her diet was advanced to regular on the day of discharge and she continued to pass gas and have bowel movement. Patient is had elevated blood pressure since being admitted. On the day of discharge she noted that her PCP wanted to increase her blood pressure medication some months ago, but the patient protested. The importance of following up with her PCP regarding titrating her meds or changing them was discussed and apparently understood. Activity, medication and diet recommendations were reviewed. Overall condition at the time of discharge is improved. Time Spent with Patient Time attestation: Total time managing care of this patient today ____ minutes. Discharge coordination time: Less than 30 minutes Quality: Safe Use of Opioids Does Pt have an Active Cancer Diagnosis on the Problem List?: No Quality: Stroke Does the patient have a stroke diagnosis?: No Physical Exam Vital Signs: Vital Signs: Last Vital Signs Temp 97.8 F 04/25/22 08:00 Pulse 88 04/25/22 08:00 Resp 17 04/25/22 08:00 BP 169/74 H 04/25/22 08:00 Pulse Ox 96 04/25/22 08:00 O2 Del Method 04/25/22 08:00 O2 Flow Rate 2 04/20/22 14:00 BMI result Body Mass Index 25.0 DS: Data Data Completed and Pending Completed studies during hospitalization [Text1]: Pending at discharge 04/20/22 11:41 Surgical [PTH] Routine Discharge Plan Discharge Anticipated Discharge Date/Time: 04/25/22 12:00 Patient Disposition: Home, Self-Care Discharge Diagnosis: internal hernia in Foramen of [place], s/p ileocectomy Referrals: Abdirashid Atkinson MD [Primary Care Provider] - 1 Week Arturo Salmeron MD [Physician] - 1 Week Discharge Medications: New oxycodone 5 mg tablet 5 mg PO Q4H PRN (Reason: pain) Qty: 10 0RF Rx Instructions: Partial Fill upon patient request. Continued vitamin B complex Capsule 1 cap PO DAILY magnesium oxide 250 mg magnesium Tablet 250 mg PO BID Multivitamin 50 Plus Tablet 1 tab PO DAILY olmesartan-hydrochlorothiazide 20-12.5 mg tablet 1 tab PO DAILY cholecalciferol (vitamin D3) [Vitamin D3] 25 mcg (1,000 unit) Tablet 25 mcg PO DAILY potassium gluconate 550 mg (90 mg) Tablet 550 mg PO DAILY Osteo Bi-Flex Triple Strength 750 mg-644 mg- 30 mg-1 mg Tablet 1 tab PO BID AZO Urinary Tract Defense 162-162.5 mg Tablet 2 tab PO DAILY Held estradiol 1 mg tablet 1 tab PO DAILY Hold Instructions: Resume on 06/10/22. Hold to minimize risk of blood clots fish,bora,flax oils-om3,6,9no1 [Triple [place] 3-6-9] 400-400-400 mg Capsule 1 cap PO BID Hold Instructions: Resume on 06/10/22. Hold for bleeding concerns turmeric root extract 500 mg Capsule 1,000 mg PO DAILY Hold Instructions: Resume on 06/10/22. Hold until seen in office Discharge Orders: Discharge Order (Routine); Ordered 04/25/22 Ordered By: Arturo Salmeron Diet: Advance to usual diet Activity on Discharge: No heavy lifting Stand Alone Forms: Patient Portal Discharge page Activity Restrictions/Additional Instructions: You had an internal hernia repair & ileocectomy (removal of the cecum & terminal ileum) by Dr. Salmeron. To allow adequate healing, you must not lift more than 20 lb for the next 6 weeks. Strenuous activities such as hiking uphill, shoveling snow, digging/gardening, swimming, yoga, weightlifting, lifting heavy shopping bags, martial arts, yoga, sports like soccer, golf or baseball or other physical activities must be avoided to prevent healing problems known as incisional hernia. If you have questions regarding a specific activity, please ask Dr. Salmeron. Please call your PCP to notify the office you had emergent surgery & will need f/u regarding your blood pressure & other medical issues. You can shower at home; allow soap & water to run over the mario & pat the incision dry. You do not need to apply a bandage or dressing unless your clothing irritates your incision. Be aware that medical tape used to hold dressings on your skin may cause irritation/rash, so avoid it if possible. Remove the dressings at night if you decide to wear them during the day for comfort. Do not soak in a tub or pool until your incisions are completely healed, which usually takes at least 2 to 3 weeks, sometimes longer. You may find that pants with an elastic waist, gym clothes or suspenders are more comfortable than pants with a belt until your incision completely heals. Swelling known as a healing ridge is normal and is not permanent; it will go away after a month or so & will continue to get softer over the next few months. Tanning or sun exposure will make your scars more noticeable & should be avoided. Be sure to schedule a follow-up appointment a week after surgery. Please bring any papers regarding employment and activity restrictions to that appointment. Remember that you are not disabled and can perform light duty. If light duty or restricted work schedule is not allowed by your employer, they will give you paperwork (FMLA: Family Medical Leave Act) paperwork to bring for the office staff to complete. Bruising and swelling around your incision is normal and to be expected. Due to gravity, this may track down towards your pubic area which is also normal. If the area becomes hot, red, swollen or drains pus, if you have worsening pains, fevers over 100F, severe abdominal or chest pain or trouble breathing, please report to the nearest emergency department. The pain medications you have been prescribed are constipating. You should purchase lyif-rwc-zlvcphj stool softener known as Colace/docusate, 100 mg and take 2 tablets in the morning with breakfast and 2 tablets after dinner in the evening until you are no longer taking narcotics and are having normal bowel movements. If you experience diarrhea while taking stool softeners, this is normal and will resolve a day or 2 after you stop the medication or reduce the dose. You should resume your regular medications unless otherwise directed by Dr. Salmeron. Stop taking any fish oil or dietary supplements as directed. Your body will need lean protein to properly heal & fight infection. Lean prote in foods include fish, cottage cheese, eggs, meats & poultry. You do not need to purchase protein supplements unless your regular diet is low in protein. Try to get 80 grams of protein/day or approximately 20-25 grams per meal & snack for 3-4 meals/day. A daily multivitamin is recommended. Vitamin C is also very important to healing. Good natural sources of vitamin C include cranberry, grapefruit & orange juice & foods like citrus fruits(oranges & grapefruits) tomatoes (raw), broccoli, strawberries & Galo peppers. If you do not like these fruits & vegetables, an pbdc-ztr-ftnhnji supplement is an acceptable option. Fiber from fruits & vegetables will help keep your bowels regular, so a lean protein & vegetable is a perfect meal. You do not need a fiber supplement unless you do not eat fruits & vegetables. Be aware that comfort foods like macaroni & cheese, cakes, donuts, breads & cheeses are filling, but empty calories since they don't have much protein or fiber. In general, prepared/pre-cooked foods & fast foods should be avoided due to high salt, high fat & poor nutritional value compared to foods you cook yourself. You can take ezhb-tqh-qtwgfcv Tylenol/acetaminophen with zokm-yxv-mtgkoae ibuprofen or naproxen for pain unless you have an allergy or medical reason you are not not allowed to take these medications, such as peptic ulcers, taking blood thinners or kidney problems. You should also use ice packs to the operative site to help minimize pain and swelling for the 1st 3 days, or as needed afterwards. Unless there is a medical reason to avoid these medicines, you should take 2 fwcc-tux-uvqsbpy Tylenol with two (2) ybrq-jgq-nmrauxb ibuprofen together, every 6 hours for the first 3 days to help with pain. Care Plan Goals: Allow adequate post-operative healing Health Concerns: Continue blood pressure medication & schedule f/u with your PCP regarding your blood pressure & Dr. Salmeron for post-op care Plan of Treatment: High protein, high fiber diet & daily multivitamin to promote healing Assessment: internal hernia, s/p laparotomy & ileocectomy for hernia through Foramen of [place]avier
--- NOTE | 2022-04-25 12:57 | MHC.CM.PN ---
PATIENT IS DC HOME - SELF CARE IMM 04/24 IN CHART
== END 2022-04-25 15:18 | disposition home or self-care (01) | DRG 330 ==
LOC: HO.ED 08:18 → HO.SSS 08:30 → HO.SSSA 14:52 → HO.S3 14:53
PROVIDERS: Admitting Provider Surgery; Emergency Provider Internal Medicine; PCP Internal Medicine; Visit Provider Surgery
PROC: 0DTH0ZZ Resection of Cecum, Open Approach (ICD-10-PCS; CPT 49320; principal; 2022-04-20 08:00)
DX: K46.0 Unspecified abdominal hernia with obstruction, without gangrene (principal); K55.9 Vascular disorder of intestine, unspecified; D64.89 Other specified anemias; R74.01 Elevation of levels of liver transaminase levels; K66.0 Peritoneal adhesions (postprocedural) (postinfection); I10 Essential (primary) hypertension; Z20.822 Contact with and (suspected) exposure to COVID-19; Z79.899 Other long term (current) drug therapy
CPT/HCPCS: 36415; 74177; 80053; 81001; 82248; 83605; 83690; 84484; 85025; 85027; 87040; 87635; 88307; 93005; 96361; 96374; 96375; 99285; C1758; J0131; J0690; J1100; J1170; J1643; J1885; J2250; J2270; J2405; J2795; J3010; Q9967

== ENCOUNTER → 2022-05-03 11:02 | Outpatient (BNVA) | payer MEDICARE, SELFPAY | PROVIDERS: PCP Internal Medicine; Visit Provider Surgery | DX: Z13.89 Encounter for screening for other disorder (principal) ==

== ENCOUNTER 2022-05-03 18:16 | Outpatient (REF) | payer MEDICARE, SELFPAY | END 2022-05-03 18:17 | disposition home or self-care (01) | LOC: HO.LNP 18:16 | PROVIDERS: Visit Provider Surgery | DX: I10 Essential (primary) hypertension (principal); L08.9 Local infection of the skin and subcutaneous tissue, unspecified; T14.8XXA Other injury of unspecified body region, initial encounter; Z90.49 Acquired absence of other specified parts of digestive tract | CPT/HCPCS: 87070; 87205 ==

== ENCOUNTER → 2022-05-05 13:53 | Outpatient (BNVA) | payer MEDICARE, SELFPAY | PROVIDERS: PCP Internal Medicine; Visit Provider Surgery | DX: Z13.89 Encounter for screening for other disorder (principal) ==

== ENCOUNTER → 2022-05-16 16:15 | Outpatient (BNVA) | payer MEDICARE, SELFPAY | PROVIDERS: PCP Internal Medicine; Visit Provider Surgery | DX: Z13.89 Encounter for screening for other disorder (principal) ==

== ENCOUNTER 2022-08-23 09:20 | Outpatient (REF) | payer MEDICARE, SELFPAY ==
[2022-08-23 09:55] LABS: MANUAL DIFF FLAG NO
[2022-08-23 10:44] LABS: Basophils Absolute Auto 0.1 X10*3/uL (0.0-0.2); Basophils Percent Auto 1.8 % (0-2); Eosinophils Absolute Auto 0.1 X10*3/uL (0.0-0.4); Eosinophils Percent Auto 2.1 % (0-4); Hemoglobin 12.3 g/dl (12.0-16.0); Imm Gran Abs Auto 0.02 X10*3/uL (0.00-0.03); Imm Gran Pct Auto 0.3 % (0.0-0.4); Lymphocytes Absolute Auto 1.7 X10*3/uL (1.2-4.9); Lymphocytes Percent Auto 26.6 % (20-40); Mean Corpuscular HGB Conc 32.4 g/dl (31.0-35.0); Mean Corpuscular Hemoglobin 30.2 pg (27.0-33.0); Mean Corpuscular Volume 93.4 fL (80.0-98.0); Mean Platelet Volume 10.7 fL (9.4-12.3); Monocytes Absolute Auto 0.5 X10*3/uL (0.1-1.2); Monocytes Percent Auto 8.5 % (2-11); Neutrophils Absolute Auto 3.8 x10*3/uL (2.0-8.3); Neutrophils Percent Auto 60.7 % (45-73); Platelet Count 267 X10*3/uL (160-400); Red Blood Count 4.07 X10*6/uL (4.20-5.50); Red Cell Distribution Width 12.6 % (11.0-16.0); White Blood Count 6.2 X10*3/uL (4.8-10.8)
[2022-08-23 11:41] LABS: Alanine Aminotransferase 22 U/L (0-31); Albumin Level 4.5 g/dL (3.5-5.0); Alkaline Phosphatase 64 U/L (39-117); Anion Gap 17 (12-20); Aspartate Amino Transferase 24 U/L (5-31); Bilirubin Total 0.6 mg/dL (0.0-1.0); Blood Urea Nitrogen 46 mg/dL (9-16); Calcium 9.9 mg/dL (8.4-10.2); Carbon Dioxide 23 mmol/L (22-29); Chloride 101 mmol/L (96-108); Estimated Glomerular Filt Rate 34; Glucose Random 98 mg/dL (60-115); Potassium 4.3 mmol/L (3.3-5.1); Sodium 137 mmol/L (135-145); Total Protein 7.9 g/dL (6.5-8.0)
== END 2022-08-23 09:21 | disposition home or self-care (01) ==
LOC: HO.LAB 09:20
PROVIDERS: PCP Internal Medicine; Visit Provider Surgery
DX: I10 Essential (primary) hypertension (principal); R14.0 Abdominal distension (gaseous); L91.0 Hypertrophic scar; Z90.49 Acquired absence of other specified parts of digestive tract; Z79.899 Other long term (current) drug therapy
CPT/HCPCS: 36415; 80053; 85025; 99212

== ENCOUNTER 2022-09-26 07:30 | Outpatient (REF) | payer MEDICARE, SELFPAY ==
--- NOTE | ~2022-09-26 | CT_ITS ---
EXAMINATION: CT ABDOMEN AND PELVIS WITH CONTRAST CLINICAL INFORMATION: Abdominal distention COMPARISON: 2 a 23 TECHNIQUE: Multidetector volumetric images were obtained from the superior aspect of the liver through the pubic symphysis following administration 85 mL of Omnipaque 350 intravenous contrast. Sagittal and coronal reformatted images were obtained on the technologist's workstation. Oral contrast: No This CT examination was performed using dose optimization techniques as appropriate, variously including the following: *Automated exposure control *Adjustment of mA and/or kV according to patient size (this includes techniques or standardized protocols for targeted exams where dose is matched to indication/reason for exam; i.e. extremities or head) *Use of iterative reconstruction technique DLP: 321 mGy-cm FINDINGS: LUNG BASES: The visualized lung bases are unremarkable. LIVER, GALLBLADDER, AND BILIARY TREE: The liver is normal in size, shape, and attenuation. No focal hepatic lesion or biliary ductal dilatation is present. The gallbladder is unremarkable with no evidence of radiopaque gallstones, gallbladder wall thickening, or obvious pericholecystic inflammatory changes. PANCREAS: Unremarkable. SPLEEN: Unremarkable. ADRENAL GLANDS: Unremarkable. KIDNEYS AND URETERS: The kidneys are normal in size, shape, and attenuation. No hydronephrosis, hydroureter, or calculi seen. No perinephric stranding. BLADDER: Unremarkable. GASTROINTESTINAL TRACT: The small and large bowel are are now unremarkable. No obstruction or evidence for any hernia.. ABDOMINAL WALL: No significant hernia is appreciated. LYMPH NODES: Normal. VASCULAR: Unremarkable. PELVIC VISCERA: Pelvic organs appeared surgically absent. OSSEOUS STRUCTURES: Unremarkable. CT/CT abdomen pelvis w IV con IMPRESSION: No significant abnormality. No internal hernia is evident on the current study. Fleischner guidelines were followed.
[2022-09-26] MEDS: iohexoL 350 MG/ML 100 ML INFUS..BTL 85 ML IV (10:37)
[2022-09-26] MEDS: Barium Sulfate Oral (Berry) 450 ML ORAL.SUSP 900 ML PO (10:44)
[2022-09-27 08:10] LABS: Creatinine POC 0.8 mg/dL (0.5-1.4); GFR POC > 60
== END 2022-09-26 07:31 | disposition home or self-care (01) ==
LOC: HO.CT 07:30
PROVIDERS: PCP Internal Medicine; Visit Provider Surgery
DX: R14.0 Abdominal distension (gaseous) (principal); I10 Essential (primary) hypertension; Z90.49 Acquired absence of other specified parts of digestive tract
CPT/HCPCS: 74177; 82565; Q9967

== ENCOUNTER 2022-09-29 12:09 | Outpatient (REF) | payer MEDICARE, SELFPAY ==
[2022-09-29 15:15] LABS: Anion Gap 12 (12-20); Blood Urea Nitrogen 31 mg/dL (9-16); Calcium 9.8 mg/dL (8.4-10.2); Carbon Dioxide 26 mmol/L (22-29); Chloride 104 mmol/L (96-108); Estimated Glomerular Filt Rate 52; Glucose Random 94 mg/dL (60-115); Potassium 4.3 mmol/L (3.3-5.1); Sodium 138 mmol/L (135-145)
== END 2022-09-29 12:10 | disposition home or self-care (01) ==
LOC: HO.LAB 12:09
PROVIDERS: PCP Internal Medicine; Visit Provider Surgery
DX: E86.0 Dehydration (principal)
CPT/HCPCS: 36415; 80048

== ENCOUNTER 2022-10-06 15:42 | Outpatient (AMB) | payer MEDICARE, SELFPAY ==
--- NOTE | 2022-10-06 15:46 | A.OFFVIS_ITS ---
Intake Vital Signs 10/06/22 15:51 Height 5 ft 2.5 in Weight 135 lb 6 oz BMI 24.4 BP 195/88 H Blood Pressure Location Lt brachial Position Sitting Pulse 110 H Intake Visit Reasons: follow up CT scan Intake Note: Patient is seen in office for CT scan and lab results, following Ileocectectomy 04/20/22. Patient c/o: denies any concerns or changes at the time of visit. Excavating Supervisor Required: No Ship Carpenter: Ship Carpenter offered & declined Accompanied by: Self / Same As Patient Allergies erythromycin base Adverse Reaction (Mild, Unverified 10/06/22 15:55) Stomach Upset Medication List - Last Reconciled 10/06/22 by Arturo Salmeron MD cholecalciferol (vitamin D3) (Vitamin D3) 25 mcg PO DAILY estradiol 1 tab PO DAILY qpncmahy-ycbe-lxb3-C-viky-bosw 750 mg-644 mg- 30 mg-1 mg (Osteo Bi-Flex Triple Strength) 1 tab PO BID magnesium oxide 250 mg PO BID methenamine-sodium salicylate 162-162.5 mg (AZO Urinary Tract Defense) 2 tabs PO DAILY uowljnvvtgkj-asokzshn-fybgwv (Multivitamin 50 Plus tablet) 1 tab PO DAILY olmesartan-hydrochlorothiazide 20-12.5 mg 1 tab PO DAILY potassium gluconate 550 mg PO DAILY vitamin B complex 1 cap PO DAILY HPI HPI Comments History of Present Illness Details The patient is a 66-year-old woman who underwent emergent exploration for a foramen of [place] hernia that was obstructing an incarcerated earlier this year 04/20/2022. She required an ileocectomy with primary, functional end-to-end stapled anastomosis. She did well postoperatively and was discharged from my care on 05/16/22, but contacted the office noting that she was having incisional pain. The patient reports a prior extremely difficult colonoscopy and that she was told she is not due for another 2 years. She is having no significant bleeding and does note that her bowel habits are improved since surgery, but she is still having bloating and other GI issues. She is tolerating her diet and moving her bowels. When the patient's CT scan was ordered, her BUN and creatinine were noted to be elevated with a BUN of 46 and creatinine of 1.55. Subsequent labs showed normalization of her creatinine to 1.06, but her BUN is still elevated at 31. The patient states that she reviewed her PCP healthcare portal after my phone call alerting her regarding her dehydration and she has a longstanding history of abnormal values. She notes that her PCP is called in scheduled an appointment for October. Patient voiced concerns about being on a diuretic medication and had scheduled an appointment to see a cement production plant operator for a di fferent blood pressure medication. [facility] Medical History Hypertension Surgical History History of bowel resection Social History Household Members: Spouse [facility] Do you presently have visiting nurse or other home services: No Alcohol intake: current Alcohol intake frequency: holidays/special occasions only Alcohol type: hard liquor Patient Tobacco Use Status: Never used Tobacco Second Hand Smoke Exposure: No Substance Use Type: Other service: No Current occupational status: retired Review of Systems Const All systems reviewed & are unremarkable except as noted in HPI and below Reports as per HPI Physical Exam Vital Signs: Last Vital Signs Pulse 110 H 10/06/22 15:51 BP 195/88 H 10/06/22 15:51 BMI result Body Mass Index 24.4 On exam, she is nontoxic She is in no acute respiratory distress Results Reviewed Results Reviewed: 09/26/2022 CT of the patient's abdomen and pelvis with oral and IV contrast shows no intra- abdominal pathology to explain the patient's symptoms, there is no evidence of free air, stricture or other significant bowel pathology No significant renal pathology is identified on CT Follow-up BUN was still elevated at 31, creatinine normalized at 1.06 Assessment & Plan Assessment & Plan (1) Dehydration: Code(s): E86.0 - Dehydration (2) 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 I have recommended the patient contact her endoscopist to discuss a colonoscopy since she is now having GI symptoms and this could represent colonic pathology. Patient voiced concerns regarding her current combination diuretic and blood pressure medication and her renal numbers. She stated that she will follow up with her PCP. The importance of this given the issue of renal damage that may be irreversible and the importance of excluding other significant pathology was reviewed and apparently understood. Patient is discharged from my care at this time and will contact me if she has questions or problems. Coding Level of Care Code Est Pt Level 4 (27444) Diagnoses Dehydration E86.0 Keloid scar L91.0 S/P partial colectomy Z90.49 HTN (hypertension) I10
[2022-10-06 15:51] VITALS: BP 195/88; PULSE 110; BMI 24.4
== END 2022-10-06 16:21 | disposition home or self-care (01) ==
PROVIDERS: PCP Internal Medicine; Visit Provider Surgery
DX: E86.0 Dehydration (principal); L91.0 Hypertrophic scar; Z90.49 Acquired absence of other specified parts of digestive tract; I10 Essential (primary) hypertension
CPT/HCPCS: 99214

== ENCOUNTER → 2022-10-06 15:42 | Outpatient (BNVA) | payer MEDICARE, SELFPAY | PROVIDERS: PCP Internal Medicine; Visit Provider Surgery | DX: E86.0 Dehydration (principal); L91.0 Hypertrophic scar; I10 Essential (primary) hypertension; Z90.49 Acquired absence of other specified parts of digestive tract | CPT/HCPCS: 99212 ==

== ENCOUNTER 2024-10-24 09:29 | Outpatient (AMB) | payer MEDICARE, SELFPAY ==
--- NOTE | 2024-10-24 09:34 | MHC.OFFVIS ---
Vital Signs 10/24/24 09:37 Height 5 ft 2 in Weight 138 lb 14.259 oz BMI 25.4 BP 176/80 H Blood Pressure Location Lt brachial Position Sitting Pulse 85 Intake Visit Reasons: colo screen Intake Note: Saud presents in the office as a new patient colonoscopy screening. CC: States she is not having any concerns. Supervisor Endless Track Vehicle Required: No Allergies erythromycin base Adverse Reaction (Mild, Unverified 10/24/24 09:37) Stomach Upset Medication List - Last Reconciled 10/24/24 by Chelsi Reddy CNP amlodipine 5 mg PO DAILY ashwagandha extract mg PO berberine chloride mg PO cholecalciferol (vitamin D3) (Vitamin D3) 25 mcg PO DAILY estradiol-progesterone 1-100 mg topical application every evening; kmkycama-gayx-zhy2-C-viky-bosw 750 mg-644 mg- 30 mg-1 mg (Osteo Bi-Flex Triple Strength) 1 tab PO BID lactobacillus combination no.9 (Adult 50 Plus Probiotic) 4,000 mmu cells PO DAILY magnesium oxide 250 mg PO BID methenamine-sodium salicylate 162-162.5 mg (AZO Urinary Tract Defense) 2 tabs PO DAILY lgqenrehoixl-mhocorgq-alwnrf (Multivitamin 50 Plus tablet) 1 tab PO DAILY potassium gluconate 550 mg PO DAILY turmeric root extract 500 mg PO BID vitamin B complex 1 cap PO DAILY HPI HPI colo screen: Details: Patient is a 68-year-old female with PMH of hypertension and hx of cervical ca s/p hysterectomy. Referred by PCP for pre colonoscopy screening. This will be Saud's third colonoscopy. The last was completed approx 10 years ago at [facility] with reports of normal findings. Her medical history includes a significant surgical intervention for a Foramen of [place] hernia in 2022, during which 8 inches of her colon were resected after it passed through the foramen. Prior to surgery, she experienced life-long bowel irregularities, but post-surgically, she reported regular bowel movements for the first time. She denies current symptoms related to her gastrointestinal system, such as changes in bowel movement frequency or blood in stools. She is managing elevated blood pressure with her primary care provider with follow-up scheduled for 11/05/2024. She is also on HRT cream topically. Her family history includes two brothers with non-cancerous colon polyps. Patient denies: fever/chills, n/v, appetite changes, pyrosis, regurgitation,dysphasia, unintentional wt loss, ab pain or melena/hematochezia. Social hx: -Recreational alcohol use socially on weekends. -denies recreational drug use -former smoker, cessation 6 years ago - family hx as below -tolerated anesthesia in the past without difficulty. PFSH Medical History (Updated 10/24/24 @ 09:43 by Chelsi Reddy CNP) Colon cancer screening Hypertension Surgical History (Updated 10/24/24 @ 09:37 by TOVA Vasquez) Hx of colonoscopy History of bowel resection Family History (Updated 10/24/24 @ 09:38 by TOVA Vasquez) Brother Colon polyp Brother Colon polyp Social History Household Members: Spouse Housing: [facility] Do you presently have visiting nurse or other home services: No Alcohol intake: current Alcohol intake frequency: holidays/special occasions only Alcohol type: hard liquor Patient Tobacco Use Status: Never used Tobacco Second Hand Smoke Exposure: No Substance Use Type: Other service: No Current occupational status: retired Review of Systems Const Reports as per HPI ENT Reports as per HPI Card Reports as per HPI Resp Reports as per HPI GI Reports as per HPI Reports as per HPI Physical Exam Vital Signs: Last Vital Signs Pulse 85 10/24/24 09:37 BP 176/80 H 10/24/24 09:37 BMI result Body Mass Index 25.4 Const General: healthy appearing, no acute distress and well developed Nutritional Appearance: average body habitus Orientation/consciousness: patient oriented x3 HEENT Head: Yes normal to inspection, Yes normocephalic and Yes atraumatic Face and sinus: Yes normal facial exam Eyes General: appearance normal, both eyes and all related structures Neck Neck: Yes normal visual inspection Resp Effort & Inspection: normal respiratory effort, able to speak in complete sentences, no tracheal deviation and symmetric chest movement Cardio Jugular venous distension: no JVD Neuro General: patient oriented x3 Gait exam (Neuro): Normal gait present Psych Appearance: grossly normal Mental Status: mental status grossly normal Speech and movement: Normal speech and movement present Affect: normal affect Attitude: cooperative Thought process: Normal thought process present Thought content: Normal thought content present Insight: Good insight present (Psych) Judgement: Good judgement present (Psych) Assessment & Plan Assessment & Plan (1) Colon cancer screening: Code(s): Z12.11 - Encounter for screening for malignant neoplasm of colon Category: Medical Plan: Due for routine colonoscopy screening. Last colonoscopy 10 years ago. Records not available at time of visit. No alarm features. s/p bowel resection (2022) secondary to Foramen of [place] hernia. Medications: -prescriptions for laxative tablets and MiraLax sent to pharmacy; instructions for Gatorade purchase and clear liquid diet given. -instructed to take antihypertensive in the morning of procedure but to ensure dose is taken prior to the 4 hour nothing by mouth window Patient educated on scheduling process, procedure preparation, including avoiding certain foods and ensuring clear liquid intake Advised on necessity for ride post-procedure due to sedation. Plan Follow-up after colonoscopy as warranted or sooner if needed Time: I spent a total of 30 minutes on the date of encounter which includes: Preparing to see the patient (reviewed previous documentation, test results and medical history) Performing a medically appropriate exam and/or evaluation Ordering medications, tests, and procedures Documenting clinical information in the health record Medications: New bisacodyl (Dulcolax (bisacodyl)) Take four tablets pre colonoscopy instructions 20 mg (4 x 5 mg) PO ONCE 4 tabs 0RF 1 day polyethylene glycol 3350 (Miralax) per colonoscopy prep instructions 238 grams PO ONCE 238 grams 0RF Coding Level of Care Code New Pt New Pt Level 3 (84444) Patient Type New Diagnoses Colon cancer screening Z12.11
[2024-10-24 09:37] VITALS: BP 176/80; PULSE 85; BMI 25.4
--- OUTSIDE RECORDS SUMMARY | 2024-10-24 10:11 | XMS_ITS | Patient Health Record ---
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 Name Role Phone Cindy Cortez Unavailable [phone] LYNDA PURDY Unavailable [phone] Allergies No Known Allergies Results Component Value Reference Range Notes URINALYSIS WITH REFLEX MICRO SCOPIC AND CULTURE Reviewed date:07/02/2024 07:54:01 AM Interpretation: Performing Lab: Notes/Report: Specific [place] Urine 1.016 1.003-1.030 pH, Urine 6.5 5.0-8.0 pH Leukocytes, Urine Negative Negative Nitrite, Urine Negative Negative Protein, Urine Negative <=Trace mg/dL Glucose, Urine Negative Negative mg/dL Ketones, Urine Negative Negative mg/dL Urobilinogen, Urine 0.2 0.2-1.0 mg/dL Bilirubin, Urine Negative Negative Blood, Urine Negative Negative COMPREHENSIVE METABOLIC PANE L Reviewed date:07/02/2024 07:55:19 AM Interpretation: Performing Lab: Notes/Report: Sodium 137 133-145 mmol/L Potassium 4.4 3.5-5.5 mmol/L Chloride 104 96-110 mmol/L CO2 27 21-32 mmol/L Anion Gap 6 3-11 Glucose 107 70-100 mg/dL BUN 29 5-25 mg/dL Creatinine 0.94 0.50-1.10 mg/dL eGFR 67 >=60 mL/min/1.73m2 Calculati on based on the Chronic Kidney Disease Epidemiology Collaboration (CKD-EPI) equation refit without adjustment for race. BUN/Creatinine Ratio 30.9 Calcium 9.4 8.5-10.5 mg/dL AST (SGOT) 15 10-42 unit/L ALT (SGPT) 22 10-60 unit/L Alkaline Phosphatase 90 42-121 unit/L Total Protein 6.9 6.0-8.0 g/dL Albumin 3.8 3.2-5.0 g/dL Total Bilirubin 0.4 0.0-1.4 mg/dL THYROID STIMULATING HORMONE Reviewed date:07/02/2024 07:53:53 AM Interpretation: Performing Lab: Notes/Report: TSH 1.23 0.40-4.00 mcIU/mL LIPID PANEL WITH REFLEX TO D IRECT LDL Reviewed date:07/02/2024 07:54:30 AM Interpretation: Performing Lab: Notes/Report: Cholesterol 229 0-200 mg/dL Triglycerides 126 0-150 mg/dL HDL 79 >=40 mg/dL LDL Calculated 125 0-100 mg/dL VLDL Cholesterol Derek 25.2 Non HDL Chol. (LDL+VLDL) 150 <145 mg/dL Chol/HDL Ratio 2.9 0.0-4.4 CBC WITH AUTO DIFFERENTIAL Reviewed date:07/02/2024 07:54:41 AM Interpretation: Performing Lab: Notes/Report: WBC 6.3 4.8-10.8 K/mcL RBC 4.60 3.80-4.80 M/mcL Hemoglobin 13.9 11.5-16.0 g/dL Hematocrit 42.7 35.0-47.0 % MCV 93.4 79.0-98.0 FL MCH 30.4 27.0-32.0 pcg MCHC 32.6 32.0-37.0 g/dL RDW 13.1 11.0-15.0 % Platelets 254 130-400 K/mcL MPV 10.0 7.0-11.0 FL NRBC 0.0 <1.0 % NRBC Absolute 0.00 <0.10 K/mcL Neutrophils Relative 63.2 Lymphocytes Relative 24.2 Monocytes Relative 7.9 Eosinophils Relative 2.1 Basophils Relative 2.1 Immature Granulocytes Relative 0.5 Neutrophils Absolute 3.98 1.50-7.00 K/mcL Lymphocytes Absolute 1.52 1.00-5.00 K/mcL Monocytes Absolute 0.50 0.20-1.00 K/mcL Eosinophils Absolute 0.13 0.00-0.50 K/mcL Basophils Absolute 0.13 0.00-0.20 K/mcL Immature Granulocytes Absolute 0.03 0.00-0.03 K/mcL BASIC METABOLIC PANEL Reviewed date:04/24/2024 08:36:51 AM Interpretation: Performing Lab: Notes/Report: Sodium 137 133-145 mmol/L Potassium 4.4 3.5-5.5 mmol/L Chloride 103 96-110 mmol/L CO2 29 21-32 mmol/L Anion Gap 5 3-11 Glucose 94 70-100 mg/dL BUN 26 5-25 mg/dL Creatinine 0.93 0.50-1.10 mg/dL eGFR 68 >=60 mL/min/1.73m2 Calculati on based on the?Chronic Kidney Disease Epidemiology Collaboration (CKD-EPI) equation refit?without adjustment for race. BUN/Creatinine Ratio 28.0 Calcium 9.7 8.5-10.5 mg/dL Reason For Referral Reason [facility] er GI; colonoscopy Diagnosis 1 Colon cancer screeni (Z12.11) Referral Organization [facility] [address] Referring Provider First Name Cindy Referring Provider Last Name [facility] Referring Provider Speciality Internal M edicine Referred Provider Specialty Gastroentero logy General Notes (p) [phone], (f ) [phone] Clinical Notes Nicole Miller 01:54:41 PM > referral faxed, Jerome Montes De Oca 10/04/2024 03:28:07 PM > Scheduled for 10/22 at 10:30 am. Pt aware Referral Priority Routine Medications Medication SIG (Take, Route, Frequency, Duration) Notes Start Date End Date Status amLODIPine Besylate 5 MG 1 tablet Orally Once a day; Duration: 90 days replaces olmesartan/hctz Active Vitamin C 1000 MG 2 tablet Orally Once a day Active Multivitamin - 1 tablet Orally Once a day Active Vitamin D3 25 MCG (1000 UT) 1 capsule Orally Once a day Active Osteo Bi-Flex One Per Day - as directed Orally Active Probiotic Active Estradiol 1 MG 1 tablet Orally Once a day Not-Taking AZO Urinary Tract Defense 162-162.5 MG 1 Orally once daily Active Magnesium 300 MG 1 capsule with a meal Orally Once a day Active Potassium Gluconate 550 MG 1 tablet Orally Once a day Active Immunizations Vaccine Route Administration Date Status Comme nts Tdap IM Intramuscular 05/17/2023 Administered Social History Tobacco Use: Social History Observation Description Date Details (start date - stop date) Current Smoker NA - NA Tobacco Use/Smoking Question Answer Notes Are you a current smoker How often do you smoke cigarettes? every day How many cigarettes a day do you smoke? 6-10 Section Notes: Reports <1/2 PPD for 20 yrs. Quit 2020. Reports <1/2 PPD for 20 yrs. Quit 2020. Reports <1/2 PPD for 20 yrs. Quit 2020. Reports <1/2 PPD for 20 yrs. Quit 2020. Reports <1/2 PPD for 20 yrs. Quit 2020. Reports <1/2 PPD for 20 yrs. Quit 2020. Reports <1/2 PPD for 20 yrs. Quit 2020. Reports <1/2 PPD for 20 yrs. Quit 2020. Problems Problem Type SNOMED Code ICD Code Onset Dates Problem Status W/U Status Risk Notes Problem Adult health examination (885167977) Encounter for general adult medical examination without abnormal findings (Z00.00) Active confirmed Problem Essential hypertension (32171626) Essential hypertension (I10) Active confirmed Problem Colon cancer screening (631719021) Colon cancer screening (Z12.11) Active confirmed Problem Hyperlipidaemia (85649562) Hyperlipidemia, unspecified hyperlipidemia type (E78.5) Active confirmed Problem Hypothyroidism (82495845) Hypothyroidism, unspecified type (E03.9) Active confirmed Problem Annual health maintenance examination (55556341) Annual physical exam (Z00.00) Active confirmed Problem Vitamin D deficiency (52349983) Vitamin D deficiency (E55.9) Active confirmed Problem Osteopenia (173553449) Osteopenia, unspecified location (M85.80) Active confirmed Problem Former smoker (4254717) Former smoker (Z87.891) Active confirmed Problem Overweight (081878103) Overweight (BMI 25.0-29.9) (E66.3) Active confirmed Problem Chronic kidney disease stage 3B (disorder) (783703823) Stage 3b chronic kidney disease (CKD) (N18.32) Active confirmed Problem Thyroid disorder screening (392354526) Screening for thyroid disorder (Z13.29) Active confirmed Problem Lipid screening (359447555) Lipid screening (Z13.220) Active confirmed Vital Signs Heart Rate 108 /min 07/04/2024 Blood pressure diastolic 80 mm Hg 07/04/2024 Oximetry 99 % 07/04/2024 Height 61 in 07/04/2024 Blood pressure systolic 150 mm Hg 07/04/2024 Weight 141 lbs 07/04/2024 BMI 26.64 kg/m2 07/04/2024 Encounters Encounter Location Date Provider Diagnosis [facility] [address] [place] [address] 02/22/2024 LYNDA PURDY Hormone imbalance E3 4.9 ; Overweight (BMI 25.0-29.9) E66.3 ; Other fatigue R53.83 and Hyperlipidemia, unspecified hyperlipidemia type E78.5 [facility] [address] [address] 03/26/2024 Cindy Svrcek Essential hypertensi on I10 ; Stage 3b chronic kidney disease (CKD) N18.32 ; Overweight (BMI 25.0-29.9) E66.3 and Hyperlipidemia, unspecified hyperlipidemia type E78.5 [facility] [address] [address] 05/16/2024 Cindy Svrcek Essential hypertensi on I10 ; Stage 3b chronic kidney disease (CKD) N18.32 ; Hyperlipidemia, unspecified hyperlipidemia type E78.5 and Hormone imbalance E34.9 [facility] [address] [address] 07/04/2024 Cindy Svrcek Encounter for genera l adult medical examination without abnormal findings Z00.00 ; Hyperglycemia R73.9 ; Essential hypertension I10 ; Hyperlipidemia, unspecified hyperlipidemia type E78.5 ; Alcohol screening Z13.39 and Encounter for screening for other disorder Z13.[address] [facility] [address] [place] [address] 10/23/2024 Cindy Svrcek [facility] [address] [place], [place] 02/14/2024 Cindy Svrcek [facility] [address] [place] [address] 03/11/2024 Cindy Svrcek [facility] [address] [address] 03/27/2024 LYNDA PURDY [facility] [address] [address] 05/22/2024 Cindy Svrcek [facility] [address] [place] [address] 06/11/2024 Cindy Svrcek Essential hypertensi on I10 [facility] [address] [place] [address] 07/04/2024 Cindy Svrcek [facility] [address] [place] [address] 08/12/2024 Cindy Svrcek [facility] [address] [place] [address] 08/22/2024 Cindy Svrcek [facility] [address] [place] [address] 01/25/2024 Cindy Svrcek [facility] [address] [place] [address] 01/29/2024 Cindy Svrcek [facility] [address] [place] [address] 02/23/2024 Cindy Svrcek [facility] [address] [place] [address] 03/14/2024 Cindy Svrcek [facility] [address] [place] [address] 04/22/2024 Cindy Svrcek [facility] [address] [place] [address] 08/23/2024 Cindy Svrcek Assessments Encounter Date Diagnosis (ICD Code) Assessment Notes Treatment Notes Treatment Clinical Notes Section Notes 02/22/2024 Hormone imbalance (ICD-10 - E34.9) Patient understands that we prescribe bioidentical hormones for patient that pharmacy compounding laws regulate.. We are providing an integrative approach to treatment of hormones. Patient needs to make an informed decision about risk benefits which were explained in detail on today's visit. Many individuals have inadequate hormone levels despite technically normal blood test. Some individuals suffering symptoms related to menopause or andropause or inability to lose weight may benefit from hormone replacement treatments. BHRT may optimize hormone levels in the blood, although there is no guarantee that this will yield positive results. There could be potential harmful side effects. This approach to hormone optimization is not universally jackeline[tedby the medical community, and may be contrary to the approach of an fur tanner for hormone health. The following bioidentical hormone therapeutic therapies are nonallopathic and subjective medical debate 1. Estradiol replacement therapy and, although not always help maintain vagina and urethral function and might slow progression of osteoporosis. It might also improve sleep, decrease hot flashes and night sweats, decrease visceral fat, improved cognitive function, improved libido and overall sense of wellbeing. 2. Progesterone replacement therapy can be used to treat conditions related to relatively low progesterone, which may include PMS, PMDD, PCOS, irregular or heavy menstruation, vasomotor symptoms, poor sleep quality and anxiety. It may, although not always, offer protection against breast and uterine cancer. 3. Testosterone replacement therapy can be used to treat symptoms or lab tests suggesting suboptimal hormone levels as they are obtained by patient's provider. Low testosterone is linked to elevated cholesterol, high blood pressure, diabetes and prostate problems. In some cases there may be use in women. 4. Thyroid replacement can be used to improve thyroid hypofunctioning, in which suboptimal levels of bioactive thyroid hormone because symptoms of low thyroid like fatigue cold intolerance, hair thinning, weight gain, constipation and dry skin. 5. DHEA replacement continues to improve lower suboptimal levels of DHEA-S, which often decreases with age and other inflammatory conditions. DHEA may counterbalance the negative effects of high cortisol levels, reduce musculoskeletal pain and, improved sense of wellbeing. Risks of BHRT: 1. Bioidentical estradiol is available in different forms including oral capsules, torches, patches, pellets and, topical creams. Adverse reactions may include bloating, breakthrough bleeding, breast swelling and tenderness, fluid retention weight gain liver cyst, mood swings Alzheimer's dementia and from strokes heart attacks blood clots or cancer. Though not the first-line treatment of choice of the practice, high potency conjugated synthetic estrogens e.g. Premarin have been linked to increased risk of breast cancer and blood clots especially in smokers. Nonetheless, the whole area of estrogen replacement is undergoing further evaluation. Do not take estrogen if patient has breast cancer 2. Progesterone therapy : Bioidentical progesterone is available in various forms including oral capsules, torches, vagina low rectal suppositories and topical creams and gels. Progesterone therapy may be sedating so it is recommended to coordinate dose with sleep cycle. Adverse reactions include bloating breakthrough bleeding missed menstrual cycle breast swelling tenderness fluid retention weight gain sedation and depression. 3. Bioidentical testosterone therapy is available in various forms including sublingual drops, approaches, topical creams, pellets and injections. Side effects include acne.,change in libido erythrocytosis angina risk for blood clots lipid changes. 4. Bioidentical thyroid hormones because heart palpitations arrhythmias tremors and sleep disturbance. 5. DHEA therapy may cause acne and hirsutism. DHEA is not recommended in patients with active breast or prostate cancer. Alternatives to BHRT services hormone therapy: BHRT services hormone therapy supply hormone balancing and treatments of different conditions, some of which may not qualify as an illness requiring treatment under traditional allopathic medical thinking. In other words, traditional medical thinking does not identify feeling better or having more energy or vitality as medically necessary for patients to justify BHRT services. An fur tanner is a healthcare professional licensed specifically to address issues involving hormone health. Their approach is more traditional in the training and protocol. Seeking nonintegrated health care from professionals other than patient's provider is an alternative patient should pursue if patient feels uncomfortable about the side effects of hormone therapies or if the patient wishes to adopt a more conservative approach to hormone health. Patient understands that treatment may be considered off label and not FDA approved for patients specific age history or symptoms meaning that treatment may not meet standard treatment guideline recommendations. Testosterone treat therapy is not FDA approved for use in the moment. Patient reviewed the most up-to-date clinical guidelines regarding the use, dose, route, frequency and duration of BHRT, including but not limited to progesterone and estrogen testosterone and DHEA. Current known potential risk of hormone replacement therapies can include but are not limited to heart attack, stroke blood clots cancer deepening of voice clitoral enlargement increased clitoral sensitivity hypersexuality, acne , deformities and woman, breast-feeding woman or woman who may become , abnormal hair growth worsening of sleep apnea fertility and early mortality. Oral estrogen use may be associated with elevation of lipids transient rise of liver enzymes pancreatitis cholelithiasis and subsequent cholecystectomy. Current evidence-based research indicates that hormone therapy can be safe and effective for symptom management however individuals with certain health history is more likely to be at risk for above complications. Patients at high risk are not limited to those older than 60 years of age have established cardiovascular disease or diabetes, use tobacco products and have a history of migraines with aura history of sleep apnea history of poorly controlled hypertension and are out of 10 years of menopause window, have history of heart disease blood clots or stroke are overweight obese, have history of breast cancer or family history of breast cancer Patient acknowledges and agrees that further risk of estrogen use include but are not limited to cardiovascular disease blood clots and breast cancer. Patient was advised by practice to obtain an annual mammogram and regular Pap smears if patient engages in estrogen use. Total time was 60 minutes greater than 50% on care coordination and counselling 03/26/2024 Essential hypertension (ICD-10 - I10) #Hypertension. Blood pressure elevated in the office today. She has been consistent with blood pressure medication and reports home readings have been well-controlled. She does remain active working out with a physical trainer and is eating a healthy diet. Lengthy discussion in regards to kidney function and worsening renal function. Will discontinue olmesartan and hydrochlorothiazide. Start amlodipine 5 mg daily. Monitor blood pressure closely at home. Recheck labs in 1 month and follow-up with me after for blood pressure check. #CKD 3B. Worsening renal function creatinine 1.6 to GFR 35. Discussed at length with patient. Encouraged hydration avoidance of NSAIDs. This has been a longstanding issue for her however labs are worsening. Advised blood pressure medication changes as above with close monitoring. If no improvement would consider nephrology consult. #Overweight. Recent consultation with Dr. Michelle Purdy and will be starting bioidentical hormone replacement. #Hyperlipidemia. Triglycerides elevated on recent labs however was not fasting at time of labs. Case discussed with collaborating physician Francisca Purdy who reviewed the assessment and plan. Chart, medications, labs, vital signs reviewed. Dictation was accomplished with the use of [employer] voice recognition software, prone to medical misidentifications and grammatical errors. This is unintentional and the practitioner does try to identify and correct these, but some could still be present. Please do not hesitate to contact practitioner for clarification. All questions answered to patients satisfaction. Patient verbalized understanding of diagnosis and treatments explained. To call sooner prior to next visit it any questions/concerns arise. 05/16/2024 Essential hypertension (ICD-10 - I10) #Hypertension. Blood pressure borderline. She is doing much better overall on amlodipine and renal function has normalized. She prefers to remain on current dose of 5 mg daily. Will recheck again at her physical next month. If blood pressure is still above goal would consider increasing to 7.5 mg daily. Continue healthy diet and regular exercise. #CKD 3B. Renal function has normalized since discontinuing olmesartan hydrochlorothiazide and changing to amlodipine. Will continue to monitor. #Hyperlipidemia. Check updated labs prior to wellness. #Hormone imbalance. Now on bioidentical hormone replacement with Dr. Lynda Purdy. Has noticed benefit. Case discussed with collaborating physician Francisca Purdy who reviewed the assessment and plan. Chart, medications, labs, vital signs reviewed. Dictation was accomplished with the use of [employer] voice recognition software, prone to medical misidentifications and grammatical errors. This is unintentional and the practitioner does try to identify and correct these, but some could still be present. Please do not hesitate to contact practitioner for clarification. All questions answered to patients satisfaction. Patient verbalized understanding of diagnosis and treatments explained. To call sooner prior to next visit it any questions/concerns arise. 05/16/2024 Stage 3b chronic kidney disease (CKD) (ICD-10 - N18.32) #Hypertension. Blood pressure borderline. She is doing much better overall on amlodipine and renal function has normalized. She prefers to remain on current dose of 5 mg daily. Will recheck again at her physical next month. If blood pressure is still above goal would consider increasing to 7.5 mg daily. Continue healthy diet and regular exercise. #CKD 3B. Renal function has normalized since discontinuing olmesartan hydrochlorothiazide and changing to amlodipine. Will continue to monitor. #Hyperlipidemia. Check updated labs prior to wellness. #Hormone imbalance. Now on bioidentical hormone replacement with Dr. Lynda Purdy. Has noticed benefit. Case discussed with collaborating physician Francisca Purdy who reviewed the assessment and plan. Chart, medications, labs, vital signs reviewed. Dictation was accomplished with the use of [employer] voice recognition software, prone to medical misidentifications and grammatical errors. This is unintentional and the practitioner does try to identify and correct these, but some could still be present. Please do not hesitate to contact practitioner for clarification. All questions answered to patients satisfaction. Patient verbalized understanding of diagnosis and treatments explained. To call sooner prior to next visit it any questions/concerns arise. 06/11/2024 Essential hypertension (ICD-10 - I10) 07/04/2024 Encounter for general adult medical examination without abnormal findings (ICD-10 - Z00.00) #Annual physical. Continue healthy diet and regular exercise. Reviewed recent labs with patient. She is due for colonoscopy and will schedule- prefers [facility]. Mammogram will be due this summer. PHQ9 , Audit C: 04/24. #Hyperglycemia. Blood glucose mildly elevated on recent labs. A1c in the office 5.1. Discussed healthy diet and regular exercise. #Hypertension. Has been well-controlled on amlodipine 5 mg however elevated in the office today. She will monitor at home if blood pressure remains above goal we will consider increasing amlodipine to 7.5 mg daily. Follow-up in 3 to 4 months sooner with any concerns. #Hyperlipidemia. mildly elevated on labs. Continue healthy diet and regular exercise. Will plan to recheck again in 4 months. Comprehensive discussion was done on the following. 1. Nutrition: It is important to follow a healthy diet based on lots of vegetables and legumes and good fat. Avoid processed food and processed carbohydrates. Learn to prepare your own meals. Learn to read labels and avoid high fructose corn syrup, processed chemicals added to increase shelf life and preprepared meals. Avoid fast foods. Learn to eat slowly and plan meals for a week. Try to count calories and be mindful off daily calorie intake. Get into the habit of keeping an eye on your weight by using an appropriate scale. Learn to log exercise and discussed fitness Apps like [employer] which can help keep log off calories taken versus calories burned. Local food should be preferred. Discussed Dirty Dozen Versus Clean Fifteen. Discussed healthy supplements like fish oil, Tumeric, Curcumin, Melatonin, Resveratrol, Probiotics, Vitamin-D, Alpha-Lipoic acid, Vitamin-D and coconut oil. 2. It is important to exercise regularly. Is a good habit to walk at least 30-45 minutes a day. Gentle weightlifting with standard precautions to protect the back. Finding activity like cycling or hiking and get into the habit of engaging in it. Stretching before and after the exercises important. It is also important to contact me if there are any problems like shortness of breath, chest pain, back pain and joint or muscle pain associated with the exercise. 3. Discussed age appropriate screening guidelines. Colonoscopy needs to start at age 45 with stool for occult blood as appropriate. There is a new test that can test for genetic abnormalities in the stool sample. This would not replace a colonoscopy but could be used as a screening tool for patients who do not want a colonoscopy. We discussed the importance of early detection of colon cancer. 4. Discussed current guidelines with respect to breast examination, mammogram and pap smear for early detection of breast and cervical cancer. Patient advised to follow up with these appointments. 5. Discussed safe driving and no use of smart phone while driving 6. Age-appropriate immunizations were discussed. A tetanus booster is needed every 10 years. Flu vaccine is recommended every year just before the start of the flu season. Shingles vaccine is recommended after age 50 but not all insurances cover it.Pneumonia vaccine is given after age 65 unless there are certain comorbidities for which it is started earlier. 7. Diagnostic labs were discussed. These could include CBC CMP and lipids with fasting blood glucose and insulin levels. Vitamin D and hemoglobin A1c testing might be appropriate. 07/04/2024 Hyperglycemia (ICD-10 - R73.9) #Annual physical. Continue healthy diet and regular exercise. Reviewed recent labs with patient. She is due for colonoscopy and will schedule- prefers [facility] [place]. Mammogram will be due this summer. PHQ9 , Audit C: 04/24. #Hyperglycemia. Blood glucose mildly elevated on recent labs. A1c in the office 5.1. Discussed healthy diet and regular exercise. #Hypertension. Has been well-controlled on amlodipine 5 mg however elevated in the office today. She will monitor at home if blood pressure remains above goal we will consider increasing amlodipine to 7.5 mg daily. Follow-up in 3 to 4 months sooner with any concerns. #Hyperlipidemia. mildly elevated on labs. Continue healthy diet and regular exercise. Will plan to recheck again in 4 months. Comprehensive discussion was done on the following. 1. Nutrition: It is important to follow a healthy diet based on lots of vegetables and legumes and good fat. Avoid processed food and processed carbohydrates. Learn to prepare your own meals. Learn to read labels and avoid high fructose corn syrup, processed chemicals added to increase shelf life and preprepared meals. Avoid fast foods. Learn to eat slowly and plan meals for a week. Try to count calories and be mindful off daily calorie intake. Get into the habit of keeping an eye on your weight by using an appropriate scale. Learn to log exercise and discussed fitness Apps like [employer] which can help keep log off calories taken versus calories burned. Local food should be preferred. Discussed Dirty Dozen Versus Clean Fifteen. Discussed healthy supplements like fish oil, Tumeric, Curcumin, Melatonin, Resveratrol, Probiotics, Vitamin-D, Alpha-Lipoic acid, Vitamin-D and coconut oil. 2. It is important to exercise regularly. Is a good habit to walk at least 30-45 minutes a day. Gentle weightlifting with standard precautions to protect the back. Finding activity like cycling or hiking and get into the habit of engaging in it. Stretching before and after the exercises important. It is also important to contact me if there are any problems like shortness of breath, chest pain, back pain and joint or muscle pain associated with the exercise. 3. Discussed age appropriate screening guidelines. Colonoscopy needs to start at age 45 with stool for occult blood as appropriate. There is a new test that can test for genetic abnormalities in the stool sample. This would not replace a colonoscopy but could be used as a screening tool for patients who do not want a colonoscopy. We discussed the importance of early detection of colon cancer. 4. Discussed current guidelines with respect to breast examination, mammogram and pap smear for early detection of breast and cervical cancer. Patient advised to follow up with these appointments. 5. Discussed safe driving and no use of smart phone while driving 6. Age-appropriate immunizations were discussed. A tetanus booster is needed every 10 years. Flu vaccine is recommended every year just before the start of the flu season. Shingles vaccine is recommended after age 50 but not all insurances cover it.Pneumonia vaccine is given after age 65 unless there are certain comorbidities for which it is started earlier. 7. Diagnostic labs were discussed. These could include CBC CMP and lipids with fasting blood glucose and insulin levels. Vitamin D and hemoglobin A1c testing might be appropriate. 03/26/2024 Stage 3b chronic kidney disease (CKD) (ICD-10 - N18.32) #Hypertension. Blood pressure elevated in the office today. She has been consistent with blood pressure medication and reports home readings have been well-controlled. She does remain active working out with a physical trainer and is eating a healthy diet. Lengthy discussion in regards to kidney function and worsening renal function. Will discontinue olmesartan and hydrochlorothiazide. Start amlodipine 5 mg daily. Monitor blood pressure closely at home. Recheck labs in 1 month and follow-up with me after for blood pressure check. #CKD 3B. Worsening renal function creatinine 1.6 to GFR 35. Discussed at length with patient. Encouraged hydration avoidance of NSAIDs. This has been a longstanding issue for her however labs are worsening. Advised blood pressure medication changes as above with close monitoring. If no improvement would consider nephrology consult. #Overweight. Recent consultation with Dr. Michelle Purdy and will be starting bioidentical hormone replacement. #Hyperlipidemia. Triglycerides elevated on recent labs however was not fasting at time of labs. Case discussed with collaborating physician Francisca Purdy who reviewed the assessment and plan. Chart, medications, labs, vital signs reviewed. Dictation was accomplished with the use of [employer] voice recognition software, prone to medical misidentifications and grammatical errors. This is unintentional and the practitioner does try to identify and correct these, but some could still be present. Please do not hesitate to contact practitioner for clarification. All questions answered to patients satisfaction. Patient verbalized understanding of diagnosis and treatments explained. To call sooner prior to next visit it any questions/concerns arise. 07/04/2024 Essential hypertension (ICD-10 - I10) #Annual physical. Continue healthy diet and regular exercise. Reviewed recent labs with patient. She is due for colonoscopy and will schedule- prefers [facility] [place]. Mammogram will be due this summer. PHQ9 , Audit C: 04/24. #Hyperglycemia. Blood glucose mildly elevated on recent labs. A1c in the office 5.1. Discussed healthy diet and regular exercise. #Hypertension. Has been well-controlled on amlodipine 5 mg however elevated in the office today. She will monitor at home if blood pressure remains above goal we will consider increasing amlodipine to 7.5 mg daily. Follow-up in 3 to 4 months sooner with any concerns. #Hyperlipidemia. mildly elevated on labs. Continue healthy diet and regular exercise. Will plan to recheck again in 4 months. Comprehensive discussion was done on the following. 1. Nutrition: It is important to follow a healthy diet based on lots of vegetables and legumes and good fat. Avoid processed food and processed carbohydrates. Learn to prepare your own meals. Learn to read labels and avoid high fructose corn syrup, processed chemicals added to increase shelf life and preprepared meals. Avoid fast foods. Learn to eat slowly and plan meals for a week. Try to count calories and be mindful off daily calorie intake. Get into the habit of keeping an eye on your weight by using an appropriate scale. Learn to log exercise and discussed fitness Apps like myfitnesspal which can help keep log off calories taken versus calories burned. Local food should be preferred. Discussed Dirty Dozen Versus Clean Fifteen. Discussed healthy supplements like fish oil, Tumeric, Curcumin, Melatonin, Resveratrol, Probiotics, Vitamin-D, Alpha-Lipoic acid, Vitamin-D and coconut oil. 2. It is important to exercise regularly. Is a good habit to walk at least 30-45 minutes a day. Gentle weightlifting with standard precautions to protect the back. Finding activity like cycling or hiking and get into the habit of engaging in it. Stretching before and after the exercises important. It is also important to contact me if there are any problems like shortness of breath, chest pain, back pain and joint or muscle pain associated with the exercise. 3. Discussed age appropriate screening guidelines. Colonoscopy needs to start at age 45 with stool for occult blood as appropriate. There is a new test that can test for genetic abnormalities in the stool sample. This would not replace a colonoscopy but could be used as a screening tool for patients who do not want a colonoscopy. We discussed the importance of early detection of colon cancer. 4. Discussed current guidelines with respect to breast examination, mammogram and pap smear for early detection of breast and cervical cancer. Patient advised to follow up with these appointments. 5. Discussed safe driving and no use of smart phone while driving 6. Age-appropriate immunizations were discussed. A tetanus booster is needed every 10 years. Flu vaccine is recommended every year just before the start of the flu season. Shingles vaccine is recommended after age 50 but not all insurances cover it.Pneumonia vaccine is given after age 65 unless there are certain comorbidities for which it is started earlier. 7. Diagnostic labs were discussed. These could include CBC CMP and lipids with fasting blood glucose and insulin levels. Vitamin D and hemoglobin A1c testing might be appropriate. 05/16/2024 Hyperlipidemia, unspecified hyperlipidemia type (ICD-10 - E78.5) #Hypertension. Blood pressure borderline. She is doing much better overall on amlodipine and renal function has normalized. She prefers to remain on current dose of 5 mg daily. Will recheck again at her physical next month. If blood pressure is still above goal would consider increasing to 7.5 mg daily. Continue healthy diet and regular exercise. #CKD 3B. Renal function has normalized since discontinuing olmesartan hydrochlorothiazide and changing to amlodipine. Will continue to monitor. #Hyperlipidemia. Check updated labs prior to wellness. #Hormone imbalance. Now on bioidentical hormone replacement with Dr. Lynda Purdy. Has noticed benefit. Case discussed with collaborating physician Francisca Purdy who reviewed the assessment and plan. Chart, medications, labs, vital signs reviewed. Dictation was accomplished with the use of [employer] voice recognition software, prone to medical misidentifications and grammatical errors. This is unintentional and the practitioner does try to identify and correct these, but some could still be present. Please do not hesitate to contact practitioner for clarification. All questions answered to patients satisfaction. Patient verbalized understanding of diagnosis and treatments explained. To call sooner prior to next visit it any questions/concerns arise. 02/22/2024 Overweight (BMI 25.0-29.9) (ICD-10 - E66.3) Patient understands that we prescribe bioidentical hormones for patient that pharmacy compounding laws regulate.. We are providing an integrative approach to treatment of hormones. Patient needs to make an informed decision about risk benefits which were explained in detail on today's visit. Many individuals have inadequate hormone levels despite technically normal blood test. Some individuals suffering symptoms related to menopause or andropause or inability to lose weight may benefit from hormone replacement treatments. BHRT may optimize hormone levels in the blood, although there is no guarantee that this will yield positive results. There could be potential harmful side effects. This approach to hormone optimization is not universally jackeline[tedby the medical community, and may be contrary to the approach of an fur tanner for hormone health. The following bioidentical hormone therapeutic therapies are nonallopathic and subjective medical debate 1. Estradiol replacement therapy and, although not always help maintain vagina and urethral function and might slow progression of osteoporosis. It might also improve sleep, decrease hot flashes and night sweats, decrease visceral fat, improved cognitive function, improved libido and overall sense of wellbeing. 2. Progesterone replacement therapy can be used to treat conditions related to relatively low progesterone, which may include PMS, PMDD, PCOS, irregular or heavy menstruation, vasomotor symptoms, poor sleep quality and anxiety. It may, although not always, offer protection against breast and uterine cancer. 3. Testosterone replacement therapy can be used to treat symptoms or lab tests suggesting suboptimal hormone levels as they are obtained by patient's provider. Low testosterone is linked to elevated cholesterol, high blood pressure, diabetes and prostate problems. In some cases there may be use in women. 4. Thyroid replacement can be used to improve thyroid hypofunctioning, in which suboptimal levels of bioactive thyroid hormone because symptoms of low thyroid like fatigue cold intolerance, hair thinning, weight gain, constipation and dry skin. 5. DHEA replacement continues to improve lower suboptimal levels of DHEA-S, which often decreases with age and other inflammatory conditions. DHEA may counterbalance the negative effects of high cortisol levels, reduce musculoskeletal pain and, improved sense of wellbeing. Risks of BHRT: 1. Bioidentical estradiol is available in different forms including oral capsules, torches, patches, pellets and, topical creams. Adverse reactions may include bloating, breakthrough bleeding, breast swelling and tenderness, fluid retention weight gain liver cyst, mood swings Alzheimer's dementia and from strokes heart attacks blood clots or cancer. Though not the first-line treatment of choice of the practice, high potency conjugated synthetic estrogens e.g. Premarin have been linked to increased risk of breast cancer and blood clots especially in smokers. Nonetheless, the whole area of estrogen replacement is undergoing further evaluation. Do not take estrogen if patient has breast cancer 2. Progesterone therapy : Bioidentical progesterone is available in various forms including oral capsules, torches, vagina low rectal suppositories and topical creams and gels. Progesterone therapy may be sedating so it is recommended to coordinate dose with sleep cycle. Adverse reactions include bloating breakthrough bleeding missed menstrual cycle breast swelling tenderness fluid retention weight gain sedation and depression. 3. Bioidentical testosterone therapy is available in various forms including sublingual drops, approaches, topical creams, pellets and injections. Side effects include acne.,change in libido erythrocytosis angina risk for blood clots lipid changes. 4. Bioidentical thyroid hormones because heart palpitations arrhythmias tremors and sleep disturbance. 5. DHEA therapy may cause acne and hirsutism. DHEA is not recommended in patients with active breast or prostate cancer. Alternatives to BHRT services hormone therapy: RT services hormone therapy supply hormone balancing and treatments of different conditions, some of which may not qualify as an illness requiring treatment under traditional allopathic medical thinking. In other words, traditional medical thinking does not identify feeling better or having more energy or vitality as medically necessary for patients to justify BHRT services. An fur tanner is a healthcare professional licensed specifically to address issues involving hormone health. Their approach is more traditional in the training and protocol. Seeking nonintegrated health care from professionals other than patient's provider is an alternative patient should pursue if patient feels uncomfortable about the side effects of hormone therapies or if the patient wishes to adopt a more conservative approach to hormone health. Patient understands that treatment may be considered off label and not FDA approved for patients specific age history or symptoms meaning that treatment may not meet standard treatment guideline recommendations. Testosterone treat therapy is not FDA approved for use in the moment. Patient reviewed the most up-to-date clinical guidelines regarding the use, dose, route, frequency and duration of BHRT, including but not limited to progesterone and estrogen testosterone and DHEA. Current known potential risk of hormone replacement therapies can include but are not limited to heart attack, stroke blood clots cancer deepening of voice clitoral enlargement increased clitoral sensitivity hypersexuality, acne , deformities and woman, breast-feeding woman or woman who may become , abnormal hair growth worsening of sleep apnea fertility and early mortality. Oral estrogen use may be associated with elevation of lipids transient rise of liver enzymes pancreatitis cholelithiasis and subsequent cholecystectomy. Current evidence-based research indicates that hormone therapy can be safe and effective for symptom management however individuals with certain health history is more likely to be at risk for above complications. Patients at high risk are not limited to those older than 60 years of age have established cardiovascular disease or diabetes, use tobacco products and have a history of migraines with aura history of sleep apnea history of poorly controlled hypertension and are out of 10 years of menopause window, have history of heart disease blood clots or stroke are overweight obese, have history of breast cancer or family history of breast cancer Patient acknowledges and agrees that further risk of estrogen use include but are not limited to cardiovascular disease blood clots and breast cancer. Patient was advised by practice to obtain an annual mammogram and regular Pap smears if patient engages in estrogen use. Total time was 60 minutes greater than 50% on care coordination and counselling 02/22/2024 Other fatigue (ICD-10 - R53.83) Patient understands that we prescribe bioidentical hormones for patient that pharmacy compounding laws regulate.. We are providing an integrative approach to treatment of hormones. Patient needs to make an informed decision about risk benefits which were explained in detail on today's visit. Many individuals have inadequate hormone levels despite technically normal blood test. Some individuals suffering symptoms related to menopause or andropause or inability to lose weight may benefit from hormone replacement treatments. BHRT may optimize hormone levels in the blood, although there is no guarantee that this will yield positive results. There could be potential harmful side effects. This approach to hormone optimization is not universally jackeline[tedby the medical community, and may be contrary to the approach of an fur tanner for hormone health. The following bioidentical hormone therapeutic therapies are nonallopathic and subjective medical debate 1. Estradiol replacement therapy and, although not always help maintain vagina and urethral function and might slow progression of osteoporosis. It might also improve sleep, decrease hot flashes and night sweats, decrease visceral fat, improved cognitive function, improved libido and overall sense of wellbeing. 2. Progesterone replacement therapy can be used to treat conditions related to relatively low progesterone, which may include PMS, PMDD, PCOS, irregular or heavy menstruation, vasomotor symptoms, poor sleep quality and anxiety. It may, although not always, offer protection against breast and uterine cancer. 3. Testosterone replacement therapy can be used to treat symptoms or lab tests suggesting suboptimal hormone levels as they are obtained by patient's provider. Low testosterone is linked to elevated cholesterol, high blood pressure, diabetes and prostate problems. In some cases there may be use in women. 4. Thyroid replacement can be used to improve thyroid hypofunctioning, in which suboptimal levels of bioactive thyroid hormone because symptoms of low thyroid like fatigue cold intolerance, hair thinning, weight gain, constipation and dry skin. 5. DHEA replacement continues to improve lower suboptimal levels of DHEA-S, which often decreases with age and other inflammatory conditions. DHEA may counterbalance the negative effects of high cortisol levels, reduce musculoskeletal pain and, improved sense of wellbeing. Risks of BHRT: 1. Bioidentical estradiol is available in different forms including oral capsules, torches, patches, pellets and, topical creams. Adverse reactions may include bloating, breakthrough bleeding, breast swelling and tenderness, fluid retention weight gain liver cyst, mood swings Alzheimer's dementia and from strokes heart attacks blood clots or cancer. Though not the first-line treatment of choice of the practice, high potency conjugated synthetic estrogens e.g. Premarin have been linked to increased risk of breast cancer and blood clots especially in smokers. Nonetheless, the whole area of estrogen replacement is undergoing further evaluation. Do not take estrogen if patient has breast cancer 2. Progesterone therapy : Bioidentical progesterone is available in various forms including oral capsules, torches, vagina low rectal suppositories and topical creams and gels. Progesterone therapy may be sedating so it is recommended to coordinate dose with sleep cycle. Adverse reactions include bloating breakthrough bleeding missed menstrual cycle breast swelling tenderness fluid retention weight gain sedation and depression. 3. Bioidentical testosterone therapy is available in various forms including sublingual drops, approaches, topical creams, pellets and injections. Side effects include acne.,change in libido erythrocytosis angina risk for blood clots lipid changes. 4. Bioidentical thyroid hormones because heart palpitations arrhythmias tremors and sleep disturbance. 5. DHEA therapy may cause acne and hirsutism. DHEA is not recommended in patients with active breast or prostate cancer. Alternatives to BHRT services hormone therapy: BHRT services hormone therapy supply hormone balancing and treatments of different conditions, some of which may not qualify as an illness requiring treatment under traditional allopathic medical thinking. In other words, traditional medical thinking does not identify feeling better or having more energy or vitality as medically necessary for patients to justify BHRT services. An fur tanner is a healthcare professional licensed specifically to address issues involving hormone health. Their approach is more traditional in the training and protocol. Seeking nonintegrated health care from professionals other than patient's provider is an alternative patient should pursue if patient feels uncomfortable about the side effects of hormone therapies or if the patient wishes to adopt a more conservative approach to hormone health. Patient understands that treatment may be considered off label and not FDA approved for patients specific age history or symptoms meaning that treatment may not meet standard treatment guideline recommendations. Testosterone treat therapy is not FDA approved for use in the moment. Patient reviewed the most up-to-date clinical guidelines regarding the use, dose, route, frequency and duration of BHRT, including but not limited to progesterone and estrogen testosterone and DHEA. Current known potential risk of hormone replacement therapies can include but are not limited to heart attack, stroke blood clots cancer deepening of voice clitoral enlargement increased clitoral sensitivity hypersexuality, acne , deformities and woman, breast-feeding woman or woman who may become , abnormal hair growth worsening of sleep apnea fertility and early mortality. Oral estrogen use may be associated with elevation of lipids transient rise of liver enzymes pancreatitis cholelithiasis and subsequent cholecystectomy. Current evidence-based research indicates that hormone therapy can be safe and effective for symptom management however individuals with certain health history is more likely to be at risk for above complications. Patients at high risk are not limited to those older than 60 years of age have established cardiovascular disease or diabetes, use tobacco products and have a history of migraines with aura history of sleep apnea history of poorly controlled hypertension and are out of 10 years of menopause window, have history of heart disease blood clots or stroke are overweight obese, have history of breast cancer or family history of breast cancer Patient acknowledges and agrees that further risk of estrogen use include but are not limited to cardiovascular disease blood clots and breast cancer. Patient was advised by practice to obtain an annual mammogram and regular Pap smears if patient engages in estrogen use. Total time was 60 minutes greater than 50% on care coordination and counselling 03/26/2024 Overweight (BMI 25.0-29.9) (ICD-10 - E66.3) #Hypertension. Blood pressure elevated in the office today. She has been consistent with blood pressure medication and reports home readings have been well-controlled. She does remain active working out with a physical trainer and is eating a healthy diet. Lengthy discussion in regards to kidney function and worsening renal function. Will discontinue olmesartan and hydrochlorothiazide. Start amlodipine 5 mg daily. Monitor blood pressure closely at home. Recheck labs in 1 month and follow-up with me after for blood pressure check. #CKD 3B. Worsening renal function creatinine 1.6 to GFR 35. Discussed at length with patient. Encouraged hydration avoidance of NSAIDs. This has been a longstanding issue for her however labs are worsening. Advised blood pressure medication changes as above with close monitoring. If no improvement would consider nephrology consult. #Overweight. Recent consultation with Dr. Michelle Purdy and will be starting bioidentical hormone replacement. #Hyperlipidemia. Triglycerides elevated on recent labs however was not fasting at time of labs. Case discussed with collaborating physician Francisca Purdy who reviewed the assessment and plan. Chart, medications, labs, vital signs reviewed. Dictation was accomplished with the use of [employer] voice recognition software, prone to medical misidentifications and grammatical errors. This is unintentional and the practitioner does try to identify and correct these, but some could still be present. Please do not hesitate to contact practitioner for clarification. All questions answered to patients satisfaction. Patient verbalized understanding of diagnosis and treatments explained. To call sooner prior to next visit it any questions/concerns arise. 05/16/2024 Hormone imbalance (ICD-10 - E34.9) #Hypertension. Blood pressure borderline. She is doing much better overall on amlodipine and renal function has normalized. She prefers to remain on current dose of 5 mg daily. Will recheck again at her physical next month. If blood pressure is still above goal would consider increasing to 7.5 mg daily. Continue healthy diet and regular exercise. #CKD 3B. Renal function has normalized since discontinuing olmesartan hydrochlorothiazide and changing to amlodipine. Will continue to monitor. #Hyperlipidemia. Check updated labs prior to wellness. #Hormone imbalance. Now on bioidentical hormone replacement with Dr. Lynda Purdy. Has noticed benefit. Case discussed with collaborating physician Francisca Purdy who reviewed the assessment and plan. Chart, medications, labs, vital signs reviewed. Dictation was accomplished with the use of [employer] voice recognition software, prone to medical misidentifications and grammatical errors. This is unintentional and the practitioner does try to identify and correct these, but some could still be present. Please do not hesitate to contact practitioner for clarification. All questions answered to patients satisfaction. Patient verbalized understanding of diagnosis and treatments explained. To call sooner prior to next visit it any questions/concerns arise. 07/04/2024 Hyperlipidemia, unspecified hyperlipidemia type (ICD-10 - E78.5) #Annual physical. Continue healthy diet and regular exercise. Reviewed recent labs with patient. She is due for colonoscopy and will schedule- prefers [facility]. Mammogram will be due this summer. PHQ9 0, Audit C: 04/24. #Hyperglycemia. Blood glucose mildly elevated on recent labs. A1c in the office 5.1. Discussed healthy diet and regular exercise. #Hypertension. Has been well-controlled on amlodipine 5 mg however elevated in the office today. She will monitor at home if blood pressure remains above goal we will consider increasing amlodipine to 7.5 mg daily. Follow-up in 3 to 4 months sooner with any concerns. #Hyperlipidemia. mildly elevated on labs. Continue healthy diet and regular exercise. Will plan to recheck again in 4 months. Comprehensive discussion was done on the following. 1. Nutrition: It is important to follow a healthy diet based on lots of vegetables and legumes and good fat. Avoid processed food and processed carbohydrates. Learn to prepare your own meals. Learn to read labels and avoid high fructose corn syrup, processed chemicals added to increase shelf life and preprepared meals. Avoid fast foods. Learn to eat slowly and plan meals for a week. Try to count calories and be mindful off daily calorie intake. Get into the habit of keeping an eye on your weight by using an appropriate scale. Learn to log exercise and discussed fitness Apps like SpazioDati which can help keep log off calories taken versus calories burned. Local food should be preferred. Discussed Dirty Dozen Versus Clean Fifteen. Discussed healthy supplements like fish oil, Tumeric, Curcumin, Melatonin, Resveratrol, Probiotics, Vitamin-D, Alpha-Lipoic acid, Vitamin-D and coconut oil. 2. It is important to exercise regularly. Is a good habit to walk at least 30-45 minutes a day. Gentle weightlifting with standard precautions to protect the back. Finding activity like cycling or hiking and get into the habit of engaging in it. Stretching before and after the exercises important. It is also important to contact me if there are any problems like shortness of breath, chest pain, back pain and joint or muscle pain associated with the exercise. 3. Discussed age appropriate screening guidelines. Colonoscopy needs to start at age 45 with stool for occult blood as appropriate. There is a new test that can test for genetic abnormalities in the stool sample. This would not replace a colonoscopy but could be used as a screening tool for patients who do not want a colonoscopy. We discussed the importance of early detection of colon cancer. 4. Discussed current guidelines with respect to breast examination, mammogram and pap smear for early detection of breast and cervical cancer. Patient advised to follow up with these appointments. 5. Discussed safe driving and no use of smart phone while driving 6. Age-appropriate immunizations were discussed. A tetanus booster is needed every 10 years. Flu vaccine is recommended every year just before the start of the flu season. Shingles vaccine is recommended after age 50 but not all insurances cover it.Pneumonia vaccine is given after age 65 unless there are certain comorbidities for which it is started earlier. 7. Diagnostic labs were discussed. These could include CBC CMP and lipids with fasting blood glucose and insulin levels. Vitamin D and hemoglobin A1c testing might be appropriate. 07/04/2024 Alcohol screening (ICD-10 - Z13.39) #Annual physical. Continue healthy diet and regular exercise. Reviewed recent labs with patient. She is due for colonoscopy and will schedule- prefers [facility]. Mammogram will be due this summer. PHQ9 , Audit C: 04/24. #Hyperglycemia. Blood glucose mildly elevated on recent labs. A1c in the office 5.1. Discussed healthy diet and regular exercise. #Hypertension. Has been well-controlled on amlodipine 5 mg however elevated in the office today. She will monitor at home if blood pressure remains above goal we will consider increasing amlodipine to 7.5 mg daily. Follow-up in 3 to 4 months sooner with any concerns. #Hyperlipidemia. mildly elevated on labs. Continue healthy diet and regular exercise. Will plan to recheck again in 4 months. Comprehensive discussion was done on the following. 1. Nutrition: It is important to follow a healthy diet based on lots of vegetables and legumes and good fat. Avoid processed food and processed carbohydrates. Learn to prepare your own meals. Learn to read labels and avoid high fructose corn syrup, processed chemicals added to increase shelf life and preprepared meals. Avoid fast foods. Learn to eat slowly and plan meals for a week. Try to count calories and be mindful off daily calorie intake. Get into the habit of keeping an eye on your weight by using an appropriate scale. Learn to log exercise and discussed fitness Apps like SpazioDati which can help keep log off calories taken versus calories burned. Local food should be preferred. Discussed Dirty Dozen Versus Clean Fifteen. Discussed healthy supplements like fish oil, Tumeric, Curcumin, Melatonin, Resveratrol, Probiotics, Vitamin-D, Alpha-Lipoic acid, Vitamin-D and coconut oil. 2. It is important to exercise regularly. Is a good habit to walk at least 30-45 minutes a day. Gentle weightlifting with standard precautions to protect the back. Finding activity like cycling or hiking and get into the habit of engaging in it. Stretching before and after the exercises important. It is also important to contact me if there are any problems like shortness of breath, chest pain, back pain and joint or muscle pain associated with the exercise. 3. Discussed age appropriate screening guidelines. Colonoscopy needs to start at age 45 with stool for occult blood as appropriate. There is a new test that can test for genetic abnormalities in the stool sample. This would not replace a colonoscopy but could be used as a screening tool for patients who do not want a colonoscopy. We discussed the importance of early detection of colon cancer. 4. Discussed current guidelines with respect to breast examination, mammogram and pap smear for early detection of breast and cervical cancer. Patient advised to follow up with these appointments. 5. Discussed safe driving and no use of smart phone while driving 6. Age-appropriate immunizations were discussed. A tetanus booster is needed every 10 years. Flu vaccine is recommended every year just before the start of the flu season. Shingles vaccine is recommended after age 50 but not all insurances cover it.Pneumonia vaccine is given after age 65 unless there are certain comorbidities for which it is started earlier. 7. Diagnostic labs were discussed. These could include CBC CMP and lipids with fasting blood glucose and insulin levels. Vitamin D and hemoglobin A1c testing might be appropriate. 03/26/2024 Hyperlipidemia, unspecified hyperlipidemia type (ICD-10 - E78.5) #Hypertension. Blood pressure elevated in the office today. She has been consistent with blood pressure medication and reports home readings have been well-controlled. She does remain active working out with a physical trainer and is eating a healthy diet. Lengthy discussion in regards to kidney function and worsening renal function. Will discontinue olmesartan and hydrochlorothiazide. Start amlodipine 5 mg daily. Monitor blood pressure closely at home. Recheck labs in 1 month and follow-up with me after for blood pressure check. #CKD 3B. Worsening renal function creatinine 1.6 to GFR 35. Discussed at length with patient. Encouraged hydration avoidance of NSAIDs. This has been a longstanding issue for her however labs are worsening. Advised blood pressure medication changes as above with close monitoring. If no improvement would consider nephrology consult. #Overweight. Recent consultation with Dr. Michelle Purdy and will be starting bioidentical hormone replacement. #Hyperlipidemia. Triglycerides elevated on recent labs however was not fasting at time of labs. Case discussed with collaborating physician Francisca Purdy who reviewed the assessment and plan. Chart, medications, labs, vital signs reviewed. Dictation was accomplished with the use of [employer] voice recognition software, prone to medical misidentifications and grammatical errors. This is unintentional and the practitioner does try to identify and correct these, but some could still be present. Please do not hesitate to contact practitioner for clarification. All questions answered to patients satisfaction. Patient verbalized understanding of diagnosis and treatments explained. To call sooner prior to next visit it any questions/concerns arise. 02/22/2024 Hyperlipidemia, unspecified hyperlipidemia type (ICD-10 - E78.5) Patient understands that we prescribe bioidentical hormones for patient that pharmacy compounding laws regulate.. We are providing an integrative approach to treatment of hormones. Patient needs to make an informed decision about risk benefits which were explained in detail on today's visit. Many individuals have inadequate hormone levels despite technically normal blood test. Some individuals suffering symptoms related to menopause or andropause or inability to lose weight may benefit from hormone replacement treatments. BHRT may optimize hormone levels in the blood, although there is no guarantee that this will yield positive results. There could be potential harmful side effects. This approach to hormone optimization is not universally jackeline[tedby the medical community, and may be contrary to the approach of an fur tanner for hormone health. The following bioidentical hormone therapeutic therapies are nonallopathic and subjective medical debate 1. Estradiol replacement therapy and, although not always help maintain vagina and urethral function and might slow progression of osteoporosis. It might also improve sleep, decrease hot flashes and night sweats, decrease visceral fat, improved cognitive function, improved libido and overall sense of wellbeing. 2. Progesterone replacement therapy can be used to treat conditions related to relatively low progesterone, which may include PMS, PMDD, PCOS, irregular or heavy menstruation, vasomotor symptoms, poor sleep quality and anxiety. It may, although not always, offer protection against breast and uterine cancer. 3. Testosterone replacement therapy can be used to treat symptoms or lab tests suggesting suboptimal hormone levels as they are obtained by patient's provider. Low testosterone is linked to elevated cholesterol, high blood pressure, diabetes and prostate problems. In some cases there may be use in women. 4. Thyroid replacement can be used to improve thyroid hypofunctioning, in which suboptimal levels of bioactive thyroid hormone because symptoms of low thyroid like fatigue cold intolerance, hair thinning, weight gain, constipation and dry skin. 5. DHEA replacement continues to improve lower suboptimal levels of DHEA-S, which often decreases with age and other inflammatory conditions. DHEA may counterbalance the negative effects of high cortisol levels, reduce musculoskeletal pain and, improved sense of wellbeing. Risks of BHRT: 1. Bioidentical estradiol is available in different forms including oral capsules, torches, patches, pellets and, topical creams. Adverse reactions may include bloating, breakthrough bleeding, breast swelling and tenderness, fluid retention weight gain liver cyst, mood swings Alzheimer's dementia and from strokes heart attacks blood clots or cancer. Though not the first-line treatment of choice of the practice, high potency conjugated synthetic estrogens e.g. Premarin have been linked to increased risk of breast cancer and blood clots especially in smokers. Nonetheless, the whole area of estrogen replacement is undergoing further evaluation. Do not take estrogen if patient has breast cancer 2. Progesterone therapy : Bioidentical progesterone is available in various forms including oral capsules, torches, vagina low rectal suppositories and topical creams and gels. Progesterone therapy may be sedating so it is recommended to coordinate dose with sleep cycle. Adverse reactions include bloating breakthrough bleeding missed menstrual cycle breast swelling tenderness fluid retention weight gain sedation and depression. 3. Bioidentical testosterone therapy is available in various forms including sublingual drops, approaches, topical creams, pellets and injections. Side effects include acne.,change in libido erythrocytosis angina risk for blood clots lipid changes. 4. Bioidentical thyroid hormones because heart palpitations arrhythmias tremors and sleep disturbance. 5. DHEA therapy may cause acne and hirsutism. DHEA is not recommended in patients with active breast or prostate cancer. Alternatives to BHRT services hormone therapy: RT services hormone therapy supply hormone balancing and treatments of different conditions, some of which may not qualify as an illness requiring treatment under traditional allopathic medical thinking. In other words, traditional medical thinking does not identify feeling better or having more energy or vitality as medically necessary for patients to justify BHRT services. An fur tanner is a healthcare professional licensed specifically to address issues involving hormone health. Their approach is more traditional in the training and protocol. Seeking nonintegrated health care from professionals other than patient's provider is an alternative patient should pursue if patient feels uncomfortable about the side effects of hormone therapies or if the patient wishes to adopt a more conservative approach to hormone health. Patient understands that treatment may be considered off label and not FDA approved for patients specific age history or symptoms meaning that treatment may not meet standard treatment guideline recommendations. Testosterone treat therapy is not FDA approved for use in the moment. Patient reviewed the most up-to-date clinical guidelines regarding the use, dose, route, frequency and duration of BHRT, including but not limited to progesterone and estrogen testosterone and DHEA. Current known potential risk of hormone replacement therapies can include but are not limited to heart attack, stroke blood clots cancer deepening of voice clitoral enlargement increased clitoral sensitivity hypersexuality, acne , deformities and woman, breast-feeding woman or woman who may become , abnormal hair growth worsening of sleep apnea fertility and early mortality. Oral estrogen use may be associated with elevation of lipids transient rise of liver enzymes pancreatitis cholelithiasis and subsequent cholecystectomy. Current evidence-based research indicates that hormone therapy can be safe and effective for symptom management however individuals with certain health history is more likely to be at risk for above complications. Patients at high risk are not limited to those older than 60 years of age have established cardiovascular disease or diabetes, use tobacco products and have a history of migraines with aura history of sleep apnea history of poorly controlled hypertension and are out of 10 years of menopause window, have history of heart disease blood clots or stroke are overweight obese, have history of breast cancer or family history of breast cancer Patient acknowledges and agrees that further risk of estrogen use include but are not limited to cardiovascular disease blood clots and breast cancer. Patient was advised by practice to obtain an annual mammogram and regular Pap smears if patient engages in estrogen use. Total time was 60 minutes greater than 50% on care coordination and counselling 07/04/2024 Encounter for screening for other disorder (ICD-10 - Z13.89) #Annual physical. Continue healthy diet and regular exercise. Reviewed recent labs with patient. She is due for colonoscopy and will schedule- prefers [facility]. Mammogram will be due this summer. PHQ9 , Audit C: 04/24. #Hyperglycemia. Blood glucose mildly elevated on recent labs. A1c in the office 5.1. Discussed healthy diet and regular exercise. #Hypertension. Has been well-controlled on amlodipine 5 mg however elevated in the office today. She will monitor at home if blood pressure remains above goal we will consider increasing amlodipine to 7.5 mg daily. Follow-up in 3 to 4 months sooner with any concerns. #Hyperlipidemia. mildly elevated on labs. Continue healthy diet and regular exercise. Will plan to recheck again in 4 months. Comprehensive discussion was done on the following. 1. Nutrition: It is important to follow a healthy diet based on lots of vegetables and legumes and good fat. Avoid processed food and processed carbohydrates. Learn to prepare your own meals. Learn to read labels and avoid high fructose corn syrup, processed chemicals added to increase shelf life and preprepared meals. Avoid fast foods. Learn to eat slowly and plan meals for a week. Try to count calories and be mindful off daily calorie intake. Get into the habit of keeping an eye on your weight by using an appropriate scale. Learn to log exercise and discussed fitness Apps like SpazioDati which can help keep log off calories taken versus calories burned. Local food should be preferred. Discussed Dirty Dozen Versus Clean Fifteen. Discussed healthy supplements like fish oil, Tumeric, Curcumin, Melatonin, Resveratrol, Probiotics, Vitamin-D, Alpha-Lipoic acid, Vitamin-D and coconut oil. 2. It is important to exercise regularly. Is a good habit to walk at least 30-45 minutes a day. Gentle weightlifting with standard precautions to protect the back. Finding activity like cycling or hiking and get into the habit of engaging in it. Stretching before and after the exercises important. It is also important to contact me if there are any problems like shortness of breath, chest pain, back pain and joint or muscle pain associated with the exercise. 3. Discussed age appropriate screening guidelines. Colonoscopy needs to start at age 45 with stool for occult blood as appropriate. There is a new test that can test for genetic abnormalities in the stool sample. This would not replace a colonoscopy but could be used as a screening tool for patients who do not want a colonoscopy. We discussed the importance of early detection of colon cancer. 4. Discussed current guidelines with respect to breast examination, mammogram and pap smear for early detection of breast and cervical cancer. Patient advised to follow up with these appointments. 5. Discussed safe driving and no use of smart phone while driving 6. Age-appropriate immunizations were discussed. A tetanus booster is needed every 10 years. Flu vaccine is recommended every year just before the start of the flu season. Shingles vaccine is recommended after age 50 but not all insurances cover it.Pneumonia vaccine is given after age 65 unless there are certain comorbidities for which it is started earlier. 7. Diagnostic labs were discussed. These could include CBC CMP and lipids with fasting blood glucose and insulin levels. Vitamin D and hemoglobin A1c testing might be appropriate. Plan Of Treatment Pending Test Test Name Order Date 25OH VITAMIN D 04/06/2023 BASIC METABOLIC PANEL 03/26/2024 CBC (COMPLETE BLOOD COUNT) WITH DIFF COMPREHENSIVE METABOLIC PANEL 04/06/2023 LIPID PANEL 04/06/2023 TSH 04/06/2023 TSH 05/16/2024 UA WITH CULTURE IF INDICATED 05/16/2024 LIPID PANEL, STANDARD 05/16/2024 LIPID PANEL, STANDARD 07/04/2024 LIPID PANEL, STANDARD 09/19/2023 COMPREHENSIVE METABOLIC PANEL 09/19/2023 COMPREHENSIVE METABOLIC PANEL 07/04/2024 COMPREHENSIVE METABOLIC PANEL 05/16/2024 BASIC METABOLIC PANEL 06/22/2023 CBC (INCLUDES DIFF/PLT) 05/16/2024 Next Appt Details Provider Name:Cindy Cortez, 0 11/05/2024 01:00:00 PM, [address], [place] [address], [place], [address], Provider Name:LYNDA PURDY, 09:30:00 AM, [address], [place], [address], Provider Name:Cindy Cortez, 0 07/10/2025 01:00:00 PM, [address], [facility] [address], [place], [address], Insurance Providers Payer Name Payer Address Payer Phone Subscriber Number Group Number Insured Name Patient Relationship to Insured Coverage Start Date Coverage End Date [employer] [address] [place] [address] [phone] [id number] [facility] Self - patient is the insured Medical (General) History Medical History History ICD Code Essential hypertension I10 Surgical History Surgery Date(Month/Year) Foramen of manuel hernia 04/20/2022 Right sholuder and bicep surgery
== END 2024-10-24 10:09 | disposition home or self-care (01) ==
LOC: HO.HGI 09:34
PROVIDERS: PCP Internal Medicine; Visit Provider Nurse Practitioner Family
DX: Z01.818 Encounter for other preprocedural examination (principal); Z12.11 Encounter for screening for malignant neoplasm of colon
CPT/HCPCS: 99024

== ENCOUNTER → 2024-10-24 09:29 | Outpatient (BNVA) | payer MEDICARE, SELFPAY | PROVIDERS: PCP Internal Medicine; Visit Provider Nurse Practitioner Family | DX: Z01.818 Encounter for other preprocedural examination (principal); I10 Essential (primary) hypertension; Z83.719 Family history of colon polyps, unspecified | CPT/HCPCS: 99212 ==